=== PATIENT | female | born 1960 | race Caucasian/White ===

== ENCOUNTER → 2023-04-24 07:49 | Outpatient (REF) | payer OTHER, SELFPAY | LOC: PET 07:49 | PROVIDERS: ATTENDING PHYSICIAN Student in an Organized Health Care Education/Training Program | DX: C88.4 Extranodal marginal zone B-cell lymphoma of mucosa-associated lymphoid tissue [MALT-lymphoma] (principal) | CPT/HCPCS: 78815; A9552 ==

== ENCOUNTER 2023-07-16 22:55 | Inpatient (IN) | payer OTHER, SELFPAY ==
[2023-07-16 20:25] VITALS: BP 82/58; BMI 21.6
[2023-07-16 21:00] LABS: Urine Albumin Trace (Neg - Trace); Urine Bilirubin 1+ (Negative); Urine Character Clear (Clear); Urine Color Yellow; Urine Glucose Negative (Negative); Urine Ketone Trace (Negative); Urine Leukocyte Trace (Negative); Urine Nitrite Negative (Negative); Urine Occult Blood 2+ (Negative); Urine Urobilinogen 3+ (Neg - 1+)
[2023-07-16 21:02] LABS: Hematocrit 27.2 % (37.0-47.0); Mean Corp Hgb Conc. 36.8 g/dL (33.0-37.0); Mean Corpuscular Hgb 30.8 pg (27.0-31.0); Mean Corpuscular Volume 83.7 fL (81.0-99.0); Mean Platelet Volume 9.4 fL (7.4-10.4); Platelet Count 180 10^3/uL (130-400); Red Blood Cell Count 3.25 10^6/uL (4.20-5.40); Red Cell Dist. Width 12.7 % (11.5-14.5)
[2023-07-16 21:10] LABS: COVID-19 Antigen Negative (Negative); Urine Squamous Cell 16-20 /LPF (Few)
[2023-07-16 21:11] LABS: Urine Bacteria Few (Negative); Urine Mucus Moderate; Urine Red Blood Cell 0-2 /HPF (0-2); Urine White Cell 0-2 /HPF (0-5)
[2023-07-16 21:20] LABS: ALT (SGPT) 26 U/L (0-35); AST (SGOT) 33 U/L (14-36); Albumin 3.1 g/dl (3.5-5.0); Alkaline Phosphatase 94 U/L (38-126); Blood Urea Nitrogen 28 mg/dl (7-17); Carbon Dioxide 20 mmol/L (22-30); Chloride 101 mmol/L (98-107); Estimated Creatinine Clearance 64 ml/min; Glucose 133 mg/dl (70-99); Potassium 3.2 mmol/L (3.5-5.1); Sodium 131 mmol/L (135-145); Total Bilirubin 0.8 mg/dl (0.2-1.3); Total Protein 5.3 g/dl (6.3-8.2); eGFR > 60.00
[2023-07-16 21:40] LABS: Band Neutrophils 0 % (0-3); Eosinophils 6 % (0-6); Lymphocytes 27 % (20-51); Monocytes 61 % (2-9); Normal RBC Morphology No; Platelets Checked Yes
[2023-07-16 21:41] LABS: Burr Cells Slight
[2023-07-16 21:42] LABS: Total Cells Counted 100
--- NOTE | 2023-07-16 22:02 | ED.GENMED ---
History of Present Illness
General
Chief Complaint: Fever
Source: patient
Exam Limitations: none
Time Seen by Provider: 07/16/23 21:43
Travel History
Have you had any contact with someone who has COVID-19?: No
Do you have any symptoms of coronavirus? Fever > 100 degrees, chills, cough, shortness of breath, sore throat, loss of taste or smell, muscle aches, or headache?: No
History of Present Illness
History of Present Illness:
See MDM
Past History
Past History
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
ED Past Surgical History: Other (Skin biopsy)
Patient has exhibited threatening behavior?: No
Social History
Tobacco: Non-smoker
Alcohol: Occasional
Drug: None
Living: with family
Employment: Employed
Family History
Family History: Negative Diabetes, Hypertension, Early CAD, Asthma or Cancer
Phy Exam
Physical Exam
Physical Exam:
See MDM
Course
Orders/Labs/Results
Orders:
Orders
07/16/23 20:28
Electrocardiogram (*1) Urgent
Reason for Study: Chest Pain
07/16/23 20:29
EKG- Treatment ONCE
07/16/23 20:47
COVID-19 Antigen Urgent
Source: Nasal Swab
Complete Blood Count/With Diff Urgent
Comprehensive Metabolic Panel Urgent
Manual Differential Urgent
Urinalysis Reflex To Culture Urgent
Date Specimen was Collected: 07/16/23
Time Specimen was Collected: 20:29
Urine Microscopic Reflex Cult Urgent
Influenza A+B Rapid Molecular Urgent
LIANE Source: Nasal Swab
Specimen Description:
07/16/23 21:57
0.9% Sodium Chloride 1000 ml [Nss] 1,000 ml IV BOLUS
Cefepime HCl [Maxipime] 2,000 mg IV NOW STA
07/16/23 21:58
CR Chest Portable - 1 View Urgent
Comment:
Reason For Exam: neutropenic fever
Reason Study Needs to be Portable: Patient Unstable
07/16/23 22:00
Lactic Acid Q4H
Comment: CANCEL 2nd LACTIC ACID IF 1st LACTIC ACID IS LESS THAN 2
Blood Culture Q30M
LIANE Source: Blood/Venous
Specimen Description:
07/16/23 22:30
Blood Culture Q30M
LIANE Source: Blood/Venous
Specimen Description:
07/17/23 02:00
Lactic Acid Q4H
Comment: CANCEL 2nd LACTIC ACID IF 1st LACTIC ACID IS LESS THAN 2
Abnormal Lab Results
07/16/23
20:47
WBC 1.0 L* 10^3/uL
(4.8-10.8)
RBC 3.25 L 10^6/uL
(4.20-5.40)
Hgb 10.0 L g/dL
(12.0-16.0)
Hct 27.2 L %
(37.0-47.0)
Abs Neuts (Manual) 0.0 L* 10^3/uL
(1.4-6.5)
Segmented Neutrophils 3 L %
(42-75)
Monocytes (Manual) 61 H %
(2-9)
Sodium 131 L mmol/L
(135-145)
Potassium 3.2 L mmol/L
(3.5-5.1)
Carbon Dioxide 20 L mmol/L
(22-30)
BUN 28 H mg/dl
(7-17)
Glucose 133 H mg/dl
(70-99)
Total Protein 5.3 L g/dl
(6.3-8.2)
Albumin 3.1 L g/dl
(3.5-5.0)
Urine Ketones Trace A
(Negative)
Ur Occult Blood Reflex 2+ A
(Negative)
Urine Bilirubin 1+ A
(Negative)
Urine Urobilinogen 3+ A
(Neg - 1+)
Leukocyte Esterase Rfl Trace A
(Negative)
Urine Bacteria (Reflex) Few A
(Negative)
07/16/23 20:47
07/16/23 20:47
Vital Signs
Initial and Last Documented VS:
Initial Vital Signs
Temp Pulse Resp BP Pulse Ox
99.1 F 72 16 82/58 96
07/16/23 20:25 07/16/23 20:25 07/16/23 20:25 07/16/23 20:25 07/16/23 20:25
Last Documented Vital Signs
Temp Pulse Resp BP Pulse Ox
99.1 F 72 16 82/58 96
07/16/23 20:25 07/16/23 20:25 07/16/23 20:25 07/16/23 20:25 07/16/23 20:25
MDM/Problems Addressed
Differential Diagnosis Includes:
HPI and MDM Narrative:
62-year-old female presenting with persistent fever. She developed a fever several days ago and was presumed sinusitis. She was started on Augmentin. Due to ongoing symptoms, she was then switched to azithromycin. She was sent in for further
evaluation due to ongoing fevers while immunocompromise. Patient states he has a history of rheumatoid arthritis and she used to be on methotrexate. She also has a history of non-Hodgkin's lymphoma. She receives monthly Rituxan infusions.
Patient denies any source of the fever such as shortness of breath, cough or urinary symptoms. She denies headache or neck pain. She does admit to feeling mildly dehydrated
Blood work was performed in triage and patient repeated. Although afebrile here, patient states she had a fever at home
Patient placed on neutropenic precautions
Physical exam
General: Well appearing and non-toxic
HEENT: protecting airway. Mildly dry mucous membranes
Neck: supple
CV: No evidence of cyanosis
Resp: No accessory muscle use. Lungs clear
Abd: Non-distended
Extremities: No deformities
Neuro: alert
Psych: Normal affect
Skin: warm
Problems Addressed including Acute and Chronic Conditions affecting care:
1. Neutropenic fever
Acuity: acute
Prognosis: unstable
Details: no obvious source noted. Urine is questionable. Will obtain chest x-ray. Patient started on cefepime and placed on neutropenic precaution
2. Dehydration
Acuity: acute
Prognosis: stable
Details: Will give IV fluids
Differential Diagnosis (but not limited to): Neutropenic fever, sinusitis, viral send
Testing considered: CT abdomen/pelvis but she denies abdominal pain
Drug therapy (if applicable): OTC meds, please see d/c instruction regarding Rx drugs
Amount and/or Complexity of Data Reviewed
Clinical info obtained from: Patient
External data reviewed: N/A
Labs I independently reviewed (but not limited to): Neutropenia
Radiology: N/A
Pulse Ox: not hypoxic
EKG independently reviewed: Sinus rhythm, normal axis, no STEMI
Geothermal Operations Manager: N/A
Critical Care: N/A
Risk of Complication:
Social Determinants of health: Good social support
Discussed with other providers: N/A
Escalation of Care includes Admit/Obs: After being observed in the Emergency Department, pt stable for discharge.
Occasional wrong word or 'sound a like' substitutions may have occurred due to the inherent limitations of voice recognition software. Read the chart carefully and recognize, using context, where substitutions have occurred.
*Critical Care Note
Total Time (30-74mins, 75-104mins- exclusive of procedures): Not Applicable
ED Attending Note
-
Portions of this chart may have been created with voice recognition software.� Occasional wrong word or��sound alike� substitutions may have occurred due to the inherent limitations of voice recognition software.
Discharge Plan
Departure
Patient Disposition: Admit
Date of Disposition: 07/16/23
Time of Disposition: 22:02
Admit to: Med/Surg
Presentation/result/management discussed w/ accepting MD/DO: Hospitalist
Discharge Problem:
Neutropenic fever
Prescriptions:
No Action
multivitamin [Daily Value] 1 EACH tablet
1 ea PO BID
folic acid 0.4 MG tablet
0.4 mg PO DAILY
methotrexate sodium 2.5 MG tablet
7.5 mg PO .WEEKLY ON SAT
cevimeline [Evoxac] 30 MG capsule
30 mg PO TID
cholecalciferol (vitamin D3) [Vitamin D3] 1,000 UNIT capsule
1,000 unit PO BID
astaxanthin 4 MG capsule
4 mg PO DAILY
cyclosporine [Restasis MultiDose] 5.5 ML drops
1 drp ophthalmic (eye) BID
lifitegrast [Xiidra] 1 EACH dropperette
1 ea OP BID
Eye Support Vitamin
1 dose PO BID
Rituxan:
1 dose INJ .EVERY 4 MONTHS
Vein Support Vitamin
1 dose PO BID
Vitamin C
1 tab PO BID
Zinc
1 tab PO BID
sucralfate 1 GM/10 ML suspension
1 gm PO QID Qty: 10 0RF
sucralfate 1 GM/10 ML suspension
1 gm PO BID Qty: 28 0RF
dexlansoprazole [Kapidex] 60 MG capsule,biphase delayed releas
60 mg PO Daily Qty: 20 0RF
Interventions
Interventions:
*Risk Screen - Suicide Last Done: 07/16/23 20:25
*Neglect/Abuse Screening Last Done: 07/16/23 20:25
ED- Fall Risk Assessment Last Done: 07/16/23 20:25
Discharge Date and Time
Print Language: GREENLANDIC
[2023-07-16 22:05] VITALS: BP 100/60
--- NOTE | 2023-07-16 22:05 | HPS.HSE ---
Addendum entered and electronically signed by Cecile Wayne MD 07/16/23 22:38:
*CXR pending
Original Note:
Family Physician
-
Family Physician:
Chief Complaint
-
fever
History of Present Illness
Ms. Malika Pathak is a 62 yo woman with hx non-Hodgkin's lymphoma on Rituxan infusions, RA, GERD, presents to the ER with fever.
Patient started having fevers a few days ago. Last week she was treated for sinusitis with Augmentin but only took once a day instead of twice. She was then started on Azithromycin. She states the headaches from her sinusitis have improved but
she remains with high fever. She is on Rituxan for both RA and NHL. She follows at [facility] for NHL.
She denies nausea/vomiting/diarrhea. Has intermittent abdominal cramping, none now. She had diarrhea over the weekend and a normal BM yesterday. No chest pain or shortness of breath. No cough.
Medical History
Past Medical History
Past Medical History: Reports Other (on-Hodgkin's lymphoma on Rituxan infusions, RA, GERD, anxiety)
Past Surgical History: Reports Other
Social History
Tobacco: Former Smoker
Alcohol: None
Family History
Family History: Not pertinent
Allergies / Home Medications
Allergies reflects when Allergies were last updated in Twitter.
Home Medications with original date entered in Twitter
Allergy/Medication List:
Allergies
Allergy/AdvReac Type Severity Reaction Status Date / Time
latex Allergy Rash Verified 07/16/23 20:30
diazepam [From Valium] AdvReac Unknown Verified 07/16/23 20:30
Home Medications
astaxanthin 4 mg capsule 4 mg PO DAILY 10/26/16
cevimeline 30 mg capsule (Evoxac) 30 mg PO TID 10/26/16
Eye Support Vitamin 1 tab PO BID 06/15/20
Vein Support Vitamin 1 tab PO BID 06/15/20
Immune Support Vitamin 2 tab PO BID 07/16/23
MSM 2 tab PO BID 07/16/23
Rituxan 0 mg IV [id number] 07/16/23
acetaminophen 500 mg tablet (Tylenol Extra Strength) 1,000 mg PO Q6HPRN PRN fever 07/16/23
ascorbic acid (vitamin C) 500 mg tablet (Vitamin C) 500 mg PO BID 07/16/23
azithromycin 250 mg tablet 0 mg PO .COMPLEX 07/16/23
cholecalciferol (vitamin D3) 25 mcg (1,000 unit) tablet 25 mcg PO BID 07/16/23
cyclosporine 0.05 % eye drops in a dropperette (Restasis) 1 drp BOTH EYES BID 07/16/23
folic acid 1 mg tablet 1 mg PO DAILY 07/16/23
glutathione 2 tab PO BID 07/16/23
hydroxychloroquine 200 mg tablet 200 mg PO BID 07/16/23
lifitegrast 5 % eye drops in a dropperette (Xiidra) 1 drp BOTH EYES BID 07/16/23
prochlorperazine maleate 10 mg tablet 10 mg PO Q8H PRN nausea/vomiting 07/16/23
sertraline 100 mg tablet 100 mg PO DAILY@199907/16/23
sertraline 25 mg tablet 25 mg PO DAILY@199907/16/23
therapeutic multivitamin 1 tab PO DAILY 07/16/23
zinc 1 dose PO DAILY 07/16/23
Review of Systems
-
History Source: Patient
A 12 point ROS was completed and negative except as noted: Yes
Physical Exam
Vital Signs
Vital Signs
Temp Pulse Resp BP Pulse Ox
99.1 F 72 16 82/58 96
07/16/23 20:25 07/16/23 20:25 07/16/23 20:25 07/16/23 20:25 07/16/23 20:25
Physical Exam
General: No Apparent Distress and Conversant
HEENT: PERRLA
Respiratory: Clear; No Wheezes or Rales
Cardiac: S1/S2 and Regular Rhythm
GI: Soft and Non Tender
Musculoskeletal: No Edema
Skin: Warm and Dry; No Rash
Neuro: AO x 3
Psych: Calm
Laboratory Results
-
07/16/23 20:47
07/16/23 20:47
Laboratory Results
Total Bilirubin 0.8 mg/dl (0.2-1.3) 07/16/23 20:47
AST 33 U/L (14-36) 07/16/23 20:47
ALT 26 U/L (0-35) 07/16/23 20:47
Alkaline Phosphatase 94 U/L (38-126) 07/16/23 20:47
Data Reviewed
-
Diagnostic Radiology: Report Reviewed by me
Lab Data: Labs Reviewed by me
Impression/Plan
-
Ms. Malika Pathak is a 62 yo woman with hx non-Hodgkin's lymphoma on Rituxan infusions, RA, GERD, anxiety presents to the ER with fever. She was recently treated with Augmentin then Azithromycin for Sinusitis.
Triage VS: T 99.1, P 72, BP 82/58
Labs: WBC 1.0, Hg 10, PLT 180, Na 131, K+ 3.2, CO2 20, BUN 28, Cr 0.7, glucose 133, liver enzymes WNL
Flu and Covid negative
UA with 0-2 WBC, trace leuk esterase
MAR: Cefepime
Neutropenia Fever
Hx Non-Hodgkin's Lymphoma
-patient reports Rituxan therapy as only current treatment NHL
-admit to telemetry
-IV Vanc/Cefepime
-will complete course of Azithromycin for sinusitis (2 more days)
-F/U cultures
-IVF
-Oncology consult
-obtain records: most recent Oncology notes
RA
-hold Hydroxychloroquine for now
Anxiety
-MACHINIST MATE Zoloft
DVT PPx lovenox subQ (PLT OK - monitor daily)
FULL CODE
[2023-07-16] MEDS: MAXIPIME 2000 MG IV (22:21)
[2023-07-16] MEDS: NSS 1000 IV (22:21)
[2023-07-16] MEDS: KCL 40 MEQ PO (22:29)
[2023-07-16 22:44] LABS: Monotest Negative (Negative)
[2023-07-16 22:49] LABS: Lactic Acid 0.9 mmol/L (0.7-2.0)
--- NOTE | 2023-07-16 23:03 | PHA.VAN.IN ---
Assessment
- Assessment
Renal Function: Appears similar to baseline
Concomitant Antimicrobials: CEFEPIME
- Previous Dosing Experience
Previous Regimen: NONE
AUC Dosing Plan
- Dosing Variables
Dosing Weight (kg): 53.5
Dosing CrCl (ml/min): 64
Vd coefficient (L/kg): 0.7
- Empiric Dosing
Initial / Loading Dose: 1500MG
Maintenance Regimen: 1GM IV Q24H
Estimated AUC (mcg*h/mL): 478
Estimated Peak (mcg*h/mL): 35.7
Estimated Trough (mcg/ml): 9.5
Estimated Half Life (H): 12
Pharmacokinetics Vancomycin I
- -
Patient Age: 62
Patient Sex: Female
Vancomycin Day #: 1
Indication: Neutropenic Fever
Requesting Provider: DANIEL
Height / Weight:
Height 5 ft 2 in
Actual Weight 53.524 kg
Pertinent Past Medical History: NON-HODGKIN'S LYMPHOMA
- Vital Signs / Lab Results
Temp Pulse Resp BP Pulse Ox
99.1 F 81 19 100/60 98
07/16/23 20:25 07/16/23 22:15 07/16/23 22:15 07/16/23 22:05 07/16/23 22:15
Lab Results - Hematology
07/16/23
20:47
WBC 1.0 L*
Band Neutrophils 0
Lab Results - Chemistry
07/16/23
20:47
BUN 28 H
Creatinine 0.7
Estimated Creat Clear 64
Albumin 3.1 L
07/16/23
22:13
Lactic Acid 0.9
Lab Results - Urine
07/16/23
20:47
Urine Nitrite (Reflex) Negative
Leukocyte Esterase Rfl Trace A
Urine WBC (Reflex) 0-2
Ur Squamous Epith Cells 16-20
Urine Bacteria (Reflex) Few A
Microbiology Results
07/16/23 20:47 Influenza Types A & B (JACOB) - Final
Nasal Swab Negative for Influenza A & B, NAAT
Negative results must be combined with clinical observations
and patient history.
Nucleic Acid Amplification test (NAAT)performed on the
iMER platform.
[2023-07-17] VITALS (23 sets, daily range): BP systolic 80–109; BP diastolic 37–67; PULSE 77; O2SAT 96
[2023-07-17] MEDS: VANCOCIN 300 ML IV (00:52)
[2023-07-17] MEDS: VANCOCIN 300 MG IV (00:52)
[2023-07-17] MEDS: FLUSH (NSS) 1 FLUSH IV (01:17)
[2023-07-17] MEDS: NSS 1000 IV ×5 (01:30→22:53)
[2023-07-17] MEDS: MAXIPIME 2000 MG IV ×3 (06:32→21:33)
[2023-07-17] MEDS: STERILE WATER FOR INJECTION 10 ML IV ×3 (06:33→21:33)
[2023-07-17 06:42] LABS: Blood Urea Nitrogen 16 mg/dl (7-17); Calcium 8.4 mg/dl (8.4-10.2); Carbon Dioxide 20 mmol/L (22-30); Chloride 108 mmol/L (98-107); Estimated Creatinine Clearance 75 ml/min; Glucose 102 mg/dl (70-99); Magnesium 1.6 mg/dl (1.6-2.3); Potassium 3.7 mmol/L (3.5-5.1); Sodium 135 mmol/L (135-145); eGFR > 60.00
[2023-07-17 07:03] LABS: Mean Corpuscular Hgb 30.5 pg (27.0-31.0); Mean Corpuscular Volume 84.7 fL (81.0-99.0); Mean Platelet Volume 9.6 fL (7.4-10.4); Platelet Count 165 10^3/uL (130-400); Red Blood Cell Count 2.95 10^6/uL (4.20-5.40); Red Cell Dist. Width 13.1 % (11.5-14.5)
[2023-07-17 07:11] LABS: White Blood Cell Count 1.3 10^3/uL (4.8-10.8)
[2023-07-17] MEDS: ZITHROMAX 250 MG PO (08:08)
[2023-07-17] MEDS: FOLVITE 1 MG PO (08:09)
--- NOTE | 2023-07-17 08:32 | CON.ONC ---
Addendum entered and electronically signed by Mateo Hansen MD 07/17/23 12:14:
07/17/23
Patient seen and examined - agree w/ COLOR ROOM ATTENDANT
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
-h/o RA tx w/ Dr. Leggett - Rituximab every 4 months at [facility] - last 03/18
-h/o recurrent sinus infections - multiple antibiotic exposures
-admit w/ neutropenia - moderate anemia
-unclear etiology of neutropenia - possible etiologies -- infection/ antibiotics vs. RA/autoimmune vs. possible med effect - methotrexate and hydroxychloroquine vs. potential underlying bone marrow etiology vs. other
-WBC differential - ANC 0 - predominate monocytosis - will review smear w/ pathology
-check michael-blood flow - leukemia/ lymphoma panel
-infectious w/u - antibiotics as per ID
-consider rheum consult - - as RA as well as rheumatologic medications could be contributing etiologies
-rituximab rarely can induce cytopenias - though no tx in 4 months
-consideration could be given to bone marrow evaluation - as pt at risk for development of primary hematologic process - pending additional w/u
-continue to follow CBC
will continue to follow with you
Original Note:
Impression
Impression
Neutropenic fever
Hx Non-Hodgkin's Lymphoma (Rituxan last administered 02/2023 by Rheum)
Acute sinusitis (Augmentin/Azithromycin)
Rheumatoid arthritis (Hydroxychloroquine)
Abdominal epigastric pain/bloating
Acute diarrhea with nausea
Anemia
Night sweats
Plan
Plan
07/17/23 WBC 1.3, Hgb 9.0, Hct 25, PLT 165, ANC 0
Strict neutropenic precautions
Monitor CBC w/ diff daily
Transfuse as needed to maintain Hgb >7.5, PLT >20
Blood cultures and stool cultures remain pending
Consider abdominal imaging
Monitor fevers
Holding Hydroxychloroquine
Lovenox, monitor PLTs
Supportive care
Request records from [facility]
We will follow.
Patient History
History of Present Illness
Malika Pathak is a very pleasant 62 yo female with history of non-Hodgkin's lymphoma on Rituxan. She is treated at [facility] with Dr. Bazan. She has nt received Rituxan in 'at least 5 months'. She presented to the ER last evening, 07/15, with fevers
for several days. She reported T. max of 103.8. Last week she was started on treatment for acute sinusitis with Augmentin. She states that she was experiencing N/V/D with bloating and feeling 'very gassy' prior to starting antibiotics x1 week which
persisted throughout course of antibiotics. She was then switched to Azithromycin. She states the headaches from her sinusitis resolved but her fever worsened. She now reports drenching night sweats and persistent abdominal bloating and gassy
discomfort. She states she is passing gas and belching. She has had some recent weight loss of (approximately 7 lbs) which she deems intentional with Keto diet. She denies shortness of breath, chest pain, or cough. She notes chills at this time. 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 She has been admitted for further evaluation and workup of neutropenic fever.
Past-Medical/Surgical History
Non-hodgkin's lymphoma (Rituxan)
Rheumatoid arthritis (Hydroxychloroquine)
Sjogren's (possible dermatologic lupus)
Anxiety
GERD
Patient Medication
�Medication �Instructions �Recorded �Confirmed �Last Taken �Type
astaxanthin 4 mg capsule 4 mg PO DAILY 10/26/16 07/16/23 4 Days Ago History
~07/12/23
cevimeline 30 mg capsule (Evoxac) 30 mg PO TID 10/26/16 07/16/23 07/16/23 History
Eye Support Vitamin 1 tab PO BID 06/15/20 07/16/23 4 Days Ago History
~07/12/23
Vein Support Vitamin 1 tab PO BID 06/15/20 07/16/23 4 Days Ago History
~07/12/23
Immune Support Vitamin 2 tab PO BID 07/16/23 07/16/23 4 Days Ago History
~07/12/23
MSM 2 tab PO BID 07/16/23 07/16/23 4 Days Ago History
~07/12/23
Rituxan 0 mg IV [id number] 07/16/23 07/16/23 5 Months Ago History
~02/14/23
acetaminophen 500 mg tablet 1,000 mg PO Q6HPRN PRN fever 07/16/23 07/16/23 Unknown History
(Tylenol Extra Strength)
ascorbic acid (vitamin C) 500 mg 500 mg PO BID 07/16/23 07/16/23 4 Days Ago History
tablet (Vitamin C) ~07/12/23
azithromycin 250 mg tablet 0 mg PO .COMPLEX 07/16/23 07/16/23 07/16/23 History
(Zithromax Z-Britton)
cholecalciferol (vitamin D3) 25 25 mcg PO BID 07/16/23 07/16/23 4 Days Ago History
mcg (1,000 unit) tablet ~07/12/23
cyclosporine 0.05 % eye drops in a 1 drp BOTH EYES BID 07/16/23 07/16/23 07/16/23 History
dropperette (Restasis)
folic acid 1 mg tablet 1 mg PO DAILY 07/16/23 07/16/23 07/16/23 History
glutathione 2 tab PO BID 07/16/23 07/16/23 4 Days Ago History
~07/12/23
hydroxychloroquine 200 mg tablet 200 mg PO BID 07/16/23 07/16/23 07/16/23 History
lifitegrast 5 % eye drops in a 1 drp BOTH EYES BID 07/16/23 07/16/23 07/16/23 History
dropperette (Xiidra)
prochlorperazine maleate 10 mg 10 mg PO Q8H PRN nausea/vomiting 07/16/23 07/16/23 07/15/23 History
tablet
sertraline 100 mg tablet 100 mg PO DAILY@199907/16/23 07/16/23 07/16/23 History
sertraline 25 mg tablet 25 mg PO DAILY@199907/16/23 07/16/23 07/16/23 History
therapeutic multivitamin 1 tab PO DAILY 07/16/23 07/16/23 4 Days Ago History
~07/12/23
zinc 1 dose PO DAILY 07/16/23 07/16/23 4 Days Ago History
~07/12/23
Active Medications
Generic Name Dose Route Start Last Admin
Trade Name Freq PRN Reason Stop Dose Admin
Acetaminophen 1,000 mg 07/17/23 03:01
Acetaminophen 500 Mg Tablet PO 08/14/23 03:00
Q6HPRN PRN
fever, mild pain
Azithromycin 250 mg 07/17/23 08:00 07/17/23 08:08
Azithromycin 250 Mg Tablet PO 07/18/23 08:01 250 mg
DAILY ALICJA Administration
Bisacodyl 10 mg 07/17/23 03:01
Bisacodyl 10 Mg Rectal Suppository RECTAL 08/14/23 03:00
[id number] PRN
constipation
Cefepime HCl 2,000 mg 07/17/23 06:00 07/17/23 06:32
Cefepime Hcl 2,000 Mg/12.5 Ml Vial IV 2,000 mg
Q8H ALICJA Administration
Cyclosporine 1 drops 07/17/23 08:00
Cyclosporine 0.05% (Ophthalmic Emulsion) 10 Drop Droperette BOTH EYES 08/14/23 07:59
BID ALICJA
Enoxaparin Sodium 40 mg 07/17/23 18:00
Enoxaparin Sodium 40 Mg/0.4 Ml Syringe SC 08/14/23 17:59
QPM ALICJA
Folic Acid 1 mg 07/17/23 08:00 07/17/23 08:09
Folic Acid 1 Mg Tablet PO 08/14/23 07:59 1 mg
DAILY ALICJA Administration
Sodium Chloride 1,000 mls @ 100 mls/hr 07/17/23 03:01 07/17/23 04:52
Nss IV 1,000 mls
.Q10H ALICJA Administration
Vancomycin HCl 1 gram in 200 mls @ 200 mls/hr 07/17/23 10:00
Vancocin IV
DAILY@599 ALICJA
Protocol
Cevimeline [Evoxac] 0 mg 07/17/23 08:00
30 Mg Capsule Po Tid PO 08/14/23 07:59
TID ALICJA
Lifitegrast [Xiidra] 0 drop 07/17/23 08:00
5 % Dropperette 1 BOTH EYES 08/14/23 07:59
Drop Both Eyes Bid BID ALICJA
Polyethylene Glycol 17 grams 07/17/23 03:01
Polyethylene Glycol Powder 17 Grams Packet PO 08/14/23 03:00
DAILYPRN PRN
constipation
Sertraline HCl 100 mg 07/17/23 20:00
Sertraline 100 Mg Tablet PO 08/14/23 19:59
DAILY@1999 ALICJA
Sertraline HCl 25 mg 07/17/23 20:00
Sertraline 25 Mg Tablet PO 08/14/23 19:59
DAILY@1999 ALICJA
Sodium Chloride 0 flush 07/16/23 23:00 07/17/23 01:17
Sodium Chloride 0.9% (Flush) Syringe IV 08/13/23 22:59 1 flush
PER PROTOCOL ALICJA Administration
Sterile Water 10 ml 07/17/23 06:00 07/17/23 06:33
Sterile Water For Injection 10 Ml Vial IV 08/14/23 05:59 10 ml
Q8H ALICJA Administration
Review of Systems
-
History Source: Patient, Coordinated Provider and Records
Constitutional: Reports Fever, Weight Loss, Fatigue, Night Sweats and Chills
EENT: Reports No Symptoms
Respiratory: Reports No Symptoms
Cardiac: Reports No Symptoms
GI: Reports Abdominal Pain, Nausea, Diarrhea, Bloated and Indigestion
Breast: Reports N/A
: Reports No Symptoms
Musculoskeletal: Reports No Symptoms
Skin: Reports No Symptoms
Neuro: Reports No Symptoms
Endocrine: Reports No Symptoms
Hematologic/Lymphatic: Reports No Symptoms
Allergy / Immunology: Reports No Symptoms
Psych: Reports No Symptoms
Physical Exam
-
Patient is resting comfortably on stretcher. Her biggest complaint is abdominal bloating with epigastric discomfort and gas.
General: Well Developed, Well Nourished, No Apparent Distress, Comfortable, Pain, Chills and Conversant
HEENT: Negative Jaundice
Cardiology: S1 and S2
Pulmonary: Clear
GI: Normal Bowel Sounds (HYPERACTIVE bowel sounds), Distended and Other (slightly tender on palpation)
Musculoskeletal: No Edema
Extremities: Pulses Present
Neurology: Non Focal
Skin: Warm and Dry
Hematologic / Lymphatic: No Petechiae
Psych: Calm
Labs
Lab Results
WBC 1.3 10^3/uL (4.8-10.8) L* 07/17/23 06:35
RBC 2.95 10^6/uL (4.20-5.40) L 07/17/23 06:35
Hgb 9.0 g/dL (12.0-16.0) L 07/17/23 06:35
Hct 25.0 % (37.0-47.0) L 07/17/23 06:35
MCV 84.7 fL (81.0-99.0) 07/17/23 06:35
MCH 30.5 pg (27.0-31.0) 07/17/23 06:35
MCHC 36.0 g/dL (33.0-37.0) 07/17/23 06:35
RDW 13.1 % (11.5-14.5) 07/17/23 06:35
Plt Count 165 10^3/uL (130-400) 07/17/23 06:35
MPV 9.6 fL (7.4-10.4) 07/17/23 06:35
Abs Immat Gran (auto) Cancelled 07/17/23 06:02
Absolute Neuts (auto) Cancelled 07/17/23 06:02
Absolute Lymphs (auto) Cancelled 07/17/23 06:02
Absolute Monos (auto) Cancelled 07/17/23 06:02
Absolute Eos (auto) Cancelled 07/17/23 06:02
Absolute Basos (auto) Cancelled 07/17/23 06:02
Immature Gran % Cancelled 07/17/23 06:02
Neutrophils % Cancelled 07/17/23 06:02
Lymphocytes % Cancelled 07/17/23 06:02
Monocytes % Cancelled 07/17/23 06:02
Eosinophils % Cancelled 07/17/23 06:02
Basophils % Cancelled 07/17/23 06:02
Creatinine 0.5 mg/dL (0.6-1.0) L 07/17/23 06:02
Vital Signs
Vital Signs
Temp Pulse Resp BP Pulse Ox
99.1 F 91 16 87/43 94
07/16/23 20:25 07/17/23 07:00 07/17/23 07:00 07/17/23 07:00 07/17/23 07:00
07/16/23 CXR: The heart size is within normal limits. The aorta is tortuous and atherosclerotic. The lungs are generally clear of an acute process. There is minimal basilar atelectasis on the left. Differential includes minimal scarring. No focal
area of airspace disease
--- NOTE | 2023-07-17 08:38 | W.PN.HOSP.TC ---
Today's Communication/Plan
-
IV antibiotics. Stool studies. IV fluids.
Assessment / Plan
Assessment / Plan
Physical exam:
General: Acute on chronically ill
HEENT: Normocephalic, Atraumatic and Moist Mucous Membranes
Respiratory: Clear to Auscultation; Negative Wheezes, Rales or Rhonchi
Cardiac: Regular Rhythm and S1/S2
GI: Soft, hyperactive bowel sounds, mild tender and Nondistended
Musculoskeletal: No Clubbing, No Cyanosis and No Edema
Neuro: Awake, Alert and Oriented
Psych: Calm
A/P:
Febrile neutropenia
Hx Non-Hodgkin's Lymphoma (On Rituxan as outpatient)
-Agree with IV cefepime and vancomycin for now. Stop azithromycin.
-Follow-up blood cultures
-Obtain stool cultures and C. difficile today given diarrhea
-Oncology consulted
-Consult ID
-Awaiting for records from [place]
-Discussed with attending RN in the ED
Hypotension
-Currently asymptomatic but with her volume losses will give aggressive fluids
-Bolus normal saline 1 L stat and then continue maintenance
-Monitor blood pressure and volume status closely
Pancytopenia (normal platelets)
-Monitor cell counts closely
-Neutropenic precautions
Rheumatoid arthritis/Sjogren's/?Cutaneous Lupus
-I agree holding Hydroxychloroquine for now
Anxiety/depression
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
DVT PPx Lovenox subQ (PLT OK - monitor daily)
FULL CODE
Total time spent on today's encounter was 52 minutes which included time spent in counseling the patient/family regarding diagnosis and treatment plan as listed above, goals of care, and symptom management. Case was discussed with nursing staff,
specialists, and care coordinators/case management. All labs and imaging personally reviewed by me. Remainder the time spent in detailed review of previous records, lab data, imaging, and other medical provider documentation.
Anticipated Discharge: > 48 hours
Subjective/Interval History
-
Date of Service: July 17, 2023
Patient tells me that she has been having diarrhea and continues to have it. Less nausea and vomiting. Denies lightheadedness or syncope. Denies dysuria. Mild dry cough. No rash. Afebrile today
Objective Data
-
Labs:
Laboratory Results
07/16/23 07/17/23 07/17/23
20:47 06:02 06:35
WBC 1.0 L* Cancelled 1.3 L*
Hgb 10.0 L Cancelled 9.0 L
Hct 27.2 L Cancelled 25.0 L
Plt Count 180 Cancelled 165
Sodium 131 L 135
Potassium 3.2 L 3.7
Chloride 101 108 H
Carbon Dioxide 20 L 20 L
BUN 28 H 16
Creatinine 0.7 0.5 L
Glucose 133 H 102 H
Calcium 9.0 8.4
Total Bilirubin 0.8
AST 33
ALT 26
Alkaline Phosphatase 94
Vital Signs:
Vital Signs
Temp Pulse Resp BP Pulse Ox
99.1 F 91 16 87/43 94
07/16/23 20:25 07/17/23 07:00 07/17/23 07:00 07/17/23 07:00 07/17/23 07:00
[2023-07-17] MEDS: RESTASIS 0.05% OPHTHALMIC EMULSION 1 DROPS BOTH EYES ×2 (08:54→20:59)
[2023-07-17] MEDS: NON-FORMULARY ITEM 30 MG PO ×3 (09:17→21:29)
--- NOTE | 2023-07-17 09:50 | PHA.VAN.FU ---
Vancomycin Assessment / Plan
- Assessment
Renal Function: Stable
Neutropenia: ANC 0
In the past 24 hrs, patient has been: Afebrile
Concomitant Antimicrobials: cefepime, PO zithromax ( continued from home)
- Dosing Plan
Continue: vancomycin 1000 mg daily ( fist dose AM 07/17/23)
- Monitoring Plan
No level(s) ordered at this time: consider levels after pt nears steady state
- Follow Up
Pharmacy will continue to follow.
Vancomycin Follow UP
- -
Patient Age: 62
Patient Sex: Female
Vancomycin Day #: 2
Indication: Neutropenic Fever
Requesting Provider: DANIEL
Height / Weight:
Height 5 ft 2 in
Actual Weight 53.524 kg
Pertinent Past Medical History: NON-HODGKIN'S LYMPHOMA( Rituxan), RA (hydroxychloroquine)
- Vital Signs / Lab Results
Temp Pulse Resp BP Pulse Ox
99.2 F 83 19 97/49 98
07/17/23 09:23 07/17/23 09:30 07/17/23 09:30 07/17/23 09:00 07/17/23 09:30
Lab Results - Hematology
07/16/23 07/17/23 07/17/23
20:47 06:02 06:35
WBC 1.0 L* Cancelled 1.3 L*
Band Neutrophils 0
Lab Results - Chemistry
07/16/23 07/17/23
20:47 06:02
BUN 28 H 16
Creatinine 0.7 0.5 L
Estimated Creat Clear 64 75
Albumin 3.1 L
07/16/23 07/17/23
22:13 02:00
Lactic Acid 0.9 Cancelled
Lab Results - Urine
07/16/23
20:47
Urine Nitrite (Reflex) Negative
Leukocyte Esterase Rfl Trace A
Ur Squamous Epith Cells 16-20
Microbiology Results
07/16/23 20:47 Influenza Types A & B (JACOB) - Final
Nasal Swab Negative for Influenza A & B, NAAT
Negative results must be combined with clinical observations
and patient history.
Nucleic Acid Amplification test (NAAT)performed on the
[employer] NOW platform.
[2023-07-17 09:57] LABS: Reticulocyte Count 0.7 % (0.4-2.8)
[2023-07-17] MEDS: VANCOCIN 200 IV (10:54)
[2023-07-17 12:28] LABS: Folate > 20.0 ng/ml (2.76-20); Vitamin B12 > 1000 pg/ml (239-931)
[2023-07-17 12:36] LABS: Segmented Neutrophils 3 % (42-75)
--- NOTE | 2023-07-17 15:15 | CON.ID ---
Consultation
-
Date/Time Consultation Requested: 07/17/2023 09:09
Date/Time Consultation Performed: 07/13/2023 [id number]
Requesting Provider: Dr. Kang
Performing Provider: Dr. Lima
Reason for Consultation: Febrile neutropenia
Chief Complaint / Past History
History of Present Illness
Malika Pathak is a 62-year-old female being evaluated at the request of Dr. Kang in regards to neutropenic fever. History is obtained from chart review, along with patient interview.
The patient has a significant past medical history of non-Hodgkin's lymphoma (in remission from 2003) and RA (maintained on Rituxan).
She presents to the emergency room following the development of fevers to 103 F several days ago. She reports that approximate week ago she developed vomiting and diarrhea, and was started on Augmentin, although she was only taking it once daily.
She subsequently developed some headache and sinus congestion was started on Azithromycin. Approximately 3 days ago she began to have fevers to 103.8 degrees for which she took Tylenol. Yesterday she continued with fevers and she was advised by
her sister to come to the emergency room for further evaluation.
At present she reports feeling 'bloated' and uncomfortable in the abdominal area. She notes watery diarrhea, and states that approximate 1 year ago she was cultured and found to be positive for Aeromonas. She denies seeing any blood in the stool.
She denies any recent chemotherapy, and her last infusion of Rituxan was in January.
Past History
Additional Past Medical History:
Non-Hodgkin's lymphoma (in remission from 2003)
Rheumatoid arthritis
GERD
Anxiety
Additional Past Surgical History:
Skin biopsy
Allergy History:
latex Allergy (Verified 07/16/23 20:30)
Rash
diazepam [From Valium] Adverse Reaction (Verified 07/16/23 20:30)
Unknown
Medications Reviewed: Yes
Current Antibiotics:
Cefepime 2 g IV every 8 hours
Vancomycin
Social History
Tobacco: Former Smoker
Alcohol: None
Drug: None
Employment: Retired
Family History
Family History: Not Pertinent
Review of Systems
Vital Signs
Temp Pulse Resp BP Pulse Ox
101.9 F H 81 16 98/56 98
07/17/23 14:10 07/17/23 14:10 07/17/23 14:10 07/17/23 14:10 07/17/23 14:10
Physical Exam
Physical Exam
Constitutional: Comfortable, Chronically Ill and Non-toxic
Head: Normocephalic
Eyes: Pupils Equal, Pupils Round, No Conjunctival Hemorrhage and Sclera Anicteric
Oral: No Thrush and No Ulcers
Cardiovascular: Regular Rate and S1/S2; Negative S3/S4
Pulmonary: Clear and Non Labored; Negative Wheezes, Rales or Rhonchi
Gastrointestinal: Soft, Tender (minimal), Distended (mild), Normal Bowel Sounds, No Rebound and No Guarding
Genito-Urinary: Negative Bo
Extremities: Negative Edema, Cyanosis, Erythema, Splinter Hemorrhage or Venous Insufficiency
Musculoskeletal: Negative Joint Swelling or Joint Effusion
Skin: Warm and Dry; Negative Rash or Jaundice
Wound: None
Neurological: Awake, Alert and Oriented
Psychological: Calm
.
Lab / Diagnostic Study Results
07/17/23 06:35
07/17/23 06:02
Abs Immat Gran (auto) Cancelled 07/17/23 06:02
Absolute Neuts (auto) Cancelled 07/17/23 06:02
Absolute Lymphs (auto) Cancelled 07/17/23 06:02
Absolute Monos (auto) Cancelled 07/17/23 06:02
Absolute Basos (auto) Cancelled 07/17/23 06:02
Total Counted 100 07/16/23 20:47
Immature Gran % Cancelled 07/17/23 06:02
Neutrophils % Cancelled 07/17/23 06:02
Lymphocytes % Cancelled 07/17/23 06:02
Monocytes % Cancelled 07/17/23 06:02
Eosinophils % Cancelled 07/17/23 06:02
Basophils % Cancelled 07/17/23 06:02
Abs Neuts (Manual) 0.0 10^3/uL (1.4-6.5) L* 07/16/23 20:47
Segmented Neutrophils 3 % (42-75) L 07/16/23 20:47
Band Neutrophils 0 % (0-3) 07/16/23 20:47
Lymphocytes (Manual) 27 % (20-51) 07/16/23 20:47
Eosinophils (Manual) 6 % (0-6) 07/16/23 20:47
Basophils (Manual) 3 % 07/16/23 20:47
Lactic Acid Cancelled 07/17/23 02:00
Ur Squamous Epith Cells 16-20 /LPF (Few) 07/16/23 20:47
Microbiology Results
Micro:
07/17/23 15:01 Blood Culture - Pending
Blood/Venous
07/17/23 10:55 C. difficile GDH Antigen & Toxins - Final
Feces/Stool Negative for toxigenic C.difficile
07/17/23 10:55 Salmonella/Shigella Culture - Pending
Feces/Stool Campylobacter Culture - Pending
Shiga Toxin Test - Pending
07/17/23 06:02 MRSA Screen - Pending
Nose
07/16/23 22:13 Blood Culture - Pending
Blood/Venous
07/16/23 20:47 Influenza Types A & B (JACOB) - Final
Nasal Swab Negative for Influenza A & B, NAAT
Negative results must be combined with clinical observations
and patient history.
Nucleic Acid Amplification test (NAAT)performed on the
[employer] platform.
Imaging:
07/16/2023 CXR (portable): Lungs are generally clear of any acute process. Minimal bibasilar atelectasis. No focal area of airspace disease.
Assessment / Plan
Febrile neutropenia
- no recent chemotherapy, recent Augmentin use
Rheumatoid arthritis; on hydroxychloroquine and q4 month Rituxan
Hx non-Hodgkin's lymphoma (in remission from 2003)
GERD
Anxiety
Recommendations:
Suspect etiology of neutropenia may be recent Augmentin use.
Continue with cefepime for the present.
Follow white count, ANC and temperature curve.
Monitor pending blood cultures.
Await marrow recovery.
[2023-07-17] MEDS: TYLENOL 1000 MG PO (16:28)
[2023-07-17 16:49] LABS: Band Neutrophils 0 % (0-3); Pathologist Reviewed No; Segmented Neutrophils 8 % (42-75)
[2023-07-17 16:50] LABS: Eosinophils 4 % (0-6); Lymphocytes 22 % (20-51); Monocytes 66 % (2-9); Normal RBC Morphology Yes; Platelets Checked Yes
[2023-07-17 16:51] LABS: Total Cells Counted 100
[2023-07-17 16:52] LABS: Absolute Neutrophils -Man Diff 0.1 10^3/uL (1.4-6.5)
--- NOTE | 2023-07-17 16:57 | PTCARENOTE ---
Critical lab value low WBC ABs Neutro (ANC) low. Doctor Pearl notified via tiger text at [phone]. Placed in chart.
[2023-07-17] MEDS: LOVENOX 40 MG SC (17:03)
[2023-07-17] MEDS: ZOLOFT 25 MG PO (21:00)
[2023-07-17] MEDS: ZOLOFT 100 MG PO (21:00)
[2023-07-18 03:36] VITALS: BP 86/49
[2023-07-18] MEDS: MAXIPIME 2000 MG IV ×3 (05:35→21:22)
[2023-07-18] MEDS: STERILE WATER FOR INJECTION 10 ML IV ×3 (05:35→21:22)
[2023-07-18 06:49] LABS: Hematocrit 25.7 % (37.0-47.0); Hemoglobin 9.1 g/dL (12.0-16.0); Mean Corp Hgb Conc. 35.4 g/dL (33.0-37.0); Mean Corpuscular Hgb 30.4 pg (27.0-31.0); Mean Platelet Volume 9.5 fL (7.4-10.4); Nucleated Red Blood Cells % 0 %; Platelet Count 212 10^3/uL (130-400); Red Cell Dist. Width 13.7 % (11.5-14.5)
[2023-07-18 06:52] LABS: Red Blood Cell Count 2.99 10^6/uL (4.20-5.40); White Blood Cell Count 2.4 10^3/uL (4.8-10.8)
[2023-07-18 06:58] LABS: Blood Urea Nitrogen 8 mg/dl (7-17); Calcium 7.9 mg/dl (8.4-10.2); Carbon Dioxide 19 mmol/L (22-30); Chloride 115 mmol/L (98-107); Estimated Creatinine Clearance 75 ml/min; Glucose 92 mg/dl (70-99); Magnesium 1.6 mg/dl (1.6-2.3); Potassium 3.5 mmol/L (3.5-5.1); Sodium 137 mmol/L (135-145); eGFR > 60.00
[2023-07-18 07:33] VITALS: BP 92/55
--- NOTE | 2023-07-18 07:44 | W.PN.HOSP.TC ---
Today's Communication/Plan
-
IV fluids. IV antibiotics.
Assessment / Plan
Assessment / Plan
Physical exam:
General: Acute on chronically ill
HEENT: Normocephalic, Atraumatic and Moist Mucous Membranes
Respiratory: Clear to Auscultation; Negative Wheezes, Rales or Rhonchi
Cardiac: Regular Rhythm and S1/S2
GI: Soft, hyperactive bowel sounds, mild tender and Nondistended
Musculoskeletal: No Clubbing, No Cyanosis and No Edema
Neuro: Awake, Alert and Oriented
Psych: Calm
A/P:
Febrile neutropenia
Hx Non-Hodgkin's Lymphoma (On Rituxan as outpatient)
-Cont with IV cefepime and vancomycin for now. Stopped azithromycin.
-Follow-up blood cultures
-Obtained stool cultures and C. difficile is negative
-Oncology consult appreciated
-Consult ID appreciated
-Awaiting for records from [place]
Hypotension
-Currently asymptomatic but with her volume losses will give aggressive fluids
-Bolus normal saline 1 L stat yesterday and then continue maintenance
-Monitor blood pressure and volume status closely
Pancytopenia (normal platelets)
-Monitor cell counts closely
-Neutropenic precautions
Rheumatoid arthritis/Sjogren's/?Cutaneous Lupus
-I agree holding Hydroxychloroquine for now
Anxiety/depression
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
DVT PPx Lovenox subQ (PLT OK - monitor daily)
FULL CODE
Total time spent on today's encounter was 52 minutes which included time spent in counseling the patient/family regarding diagnosis and treatment plan as listed above, goals of care, and symptom management. Case was discussed with nursing staff,
specialists, and care coordinators/case management. All labs and imaging personally reviewed by me. Remainder the time spent in detailed review of previous records, lab data, imaging, and other medical provider documentation.
Anticipated Discharge: > 48 hours
Subjective/Interval History
-
Date of Service: July 18, 2023
Patient feels better overall today. Still running low blood pressure but she runs chronically low blood pressure. No lightheadedness. Afebrile
Objective Data
-
Labs:
Laboratory Results
07/18/23
05:21
WBC 2.4 L*
Hgb 9.1 L
Hct 25.7 L
Plt Count 212 D
Sodium 137
Potassium 3.5
Chloride 115 H
Carbon Dioxide 19 L
BUN 8
Creatinine 0.5 L
Glucose 92
Calcium 7.9 L
Vital Signs:
Vital Signs
Temp Pulse Resp BP Pulse Ox
98.4 F 65 16 92/55 95
07/18/23 07:33 07/18/23 07:33 07/18/23 07:33 07/18/23 07:33 07/18/23 07:33
I&O
07/17/23 07/18/23 07/19/23
06:59 06:59 06:59
Intake Total 1919
Balance 1919
[2023-07-18] MEDS: NON-FORMULARY ITEM 30 MG PO ×3 (08:18→21:23)
[2023-07-18] MEDS: FOLVITE 1 MG PO (08:18)
[2023-07-18] MEDS: RESTASIS 0.05% OPHTHALMIC EMULSION 1 DROPS BOTH EYES ×2 (08:18→19:10)
[2023-07-18] MEDS: NSS 1000 IV ×2 (08:19→18:18)
[2023-07-18] MEDS: TUMS 1 TABLET PO (09:01)
[2023-07-18] MEDS: PEPCID 20 MG PO (09:01)
[2023-07-18 09:07] LABS: Band Neutrophils 10 % (0-3); Segmented Neutrophils 29 % (42-75)
[2023-07-18 09:08] LABS: Eosinophils 7 % (0-6); Lymphocytes 23 % (20-51); Monocytes 31 % (2-9); Platelets Checked Yes
[2023-07-18 09:09] LABS: Normal RBC Morphology Yes; Total Cells Counted 100
[2023-07-18 09:12] LABS: Absolute Neutrophils -Man Diff 0.9 10^3/uL (1.4-6.5)
--- NOTE | 2023-07-18 09:44 | PTCARENOTE ---
critical lab WBC 2.4 and Abs Neutro (ANC) 0.9. Dr. Kang notified in person at [id number]. placed in chart
--- NOTE | 2023-07-18 10:43 | W.PN.ONC ---
Today's Communication / Plan
-
WBC improved as was ANC
follow CBC
Impression
Impression
Neutropenic fever - no fevers since yesterday pm
Hx Non-Hodgkin's Lymphoma (Rituxan last administered 02/2023 by Rheum)
Acute sinusitis (Augmentin/Azithromycin)
Rheumatoid arthritis (Hydroxychloroquine)
Abdominal epigastric pain/bloating
Acute diarrhea with nausea
Anemia
Night sweats
Plan
Plan
1. Neutropenia - unclear etiology - potentially drug induced - augmentin? vs. hydroxycholoquine - both stopped - vs. other etiology - infectious vs. autoimmune - RA vs. primary hematologic
-WBC and ANC improved today
-cont tx of infection as per ID
-follow CBC
Subjective/Objective
Subjective/Objective
Afebrile this am, no SOB, chest pain
Vital Signs:
Vital Signs
Temp Pulse Resp BP Pulse Ox
98.4 F 65 16 92/55 95
07/18/23 07:33 07/18/23 07:33 07/18/23 07:33 07/18/23 07:33 07/18/23 07:33
Lab Results:
Laboratory Data
WBC 2.4 10^3/uL (4.8-10.8) L* 07/18/23 05:21
Hgb 9.1 g/dL (12.0-16.0) L 07/18/23 05:21
Plt Count 212 10^3/uL (130-400) D 07/18/23 05:21
eGFR > 60.00 07/18/23 05:21
Exam: unchanged
Orders
Orders
Orders From Last 24 Hours
07/17/23 11:57
Add On- LAB Routine
07/17/23 12:06
Leukemia/Lymphoma Phenotyping [S] Routine
[2023-07-18 10:49] VITALS: BP 90/55
--- NOTE | 2023-07-18 12:00 | W.PN.ID1 ---
Date of Service
Date of Service: July 18, 2023
Today's Communication
Continue cefepime for now.
Assessment / Plan
Febrile neutropenia
- no recent chemotherapy, recent Augmentin use
Rheumatoid arthritis; on hydroxychloroquine and q4 month Rituxan
Hx non-Hodgkin's lymphoma (in remission from 2003)
GERD
Anxiety
Recommendations:
Suspect etiology of neutropenia may be recent Augmentin use.
ANC improving.
Fever resolving
Cultures negative to date.
Continue with cefepime for the present
Follow white count, ANC and temperature curve.
Await marrow recovery.
Chief Complaint
-: Other (Neutropenic fever)
Subjective / Review of Systems
Feeling better. No specific symptoms today.
Vital Signs / Physical Exam
Vital Signs
Vital Signs
Temp Pulse Resp BP Pulse Ox
98.1 F 69 16 90/55 94
07/18/23 10:49 07/18/23 10:49 07/18/23 10:49 07/18/23 10:49 07/18/23 10:49
Physical Exam
Constitutional: No Acute Distress and Comfortable
Eyes: No Conjunctival Hemorrhage and Sclera Anicteric
Cardiovascular: Regular Rate and S1/S2
Pulmonary: Clear
Gastrointestinal: Soft, Non Tender and Non Distended
Extremities: Negative Edema
Lines: Port (RCW no erythema)
Objective Data
Lab Data
Lab Results
07/18/23 05:21
07/18/23 05:21
Estimated Creat Clear 75 ml/min 07/18/23 05:21
Lactic Acid Cancelled 07/17/23 02:00
Total Bilirubin 0.8 mg/dl (0.2-1.3) 07/16/23 20:47
AST 33 U/L (14-36) 07/16/23 20:47
ALT 26 U/L (0-35) 07/16/23 20:47
Alkaline Phosphatase 94 U/L (38-126) 07/16/23 20:47
Most recent labs reviewed.
Micro Results:
07/17/23 10:55 Salmonella/Shigella Culture - Preliminary
Feces/Stool Culture in Progress
Campylobacter Culture - Preliminary
Culture in Progress
Shiga Toxin Test - Pending
07/17/23 06:02 MRSA Screen - Final
Nose No Methicillin Resistant Staphylococcus aureus isolated.
07/16/23 22:13 Blood Culture - Preliminary
Blood/Venous No Growth in 24 hours- Final report to follow
07/17/23 15:01 Blood Culture - Pending
Blood/Venous
07/17/23 10:55 C. difficile GDH Antigen & Toxins - Final
Feces/Stool Negative for toxigenic C.difficile
07/16/23 20:47 Influenza Types A & B (JACOB) - Final
Nasal Swab Negative for Influenza A & B, NAAT
Negative results must be combined with clinical observations
and patient history.
Nucleic Acid Amplification test (NAAT)performed on the
[email or web address] platform.
Imaging:
07/16/2023 CXR (portable): Lungs are generally clear of any acute process. Minimal bibasilar atelectasis. No focal area of airspace disease.
[2023-07-18 15:32] VITALS: BP 93/58
[2023-07-18] MEDS: LOVENOX 40 MG SC (17:02)
[2023-07-18] MEDS: ZOLOFT 100 MG PO (19:10)
[2023-07-18] MEDS: ZOLOFT 25 MG PO (19:10)
[2023-07-18] MEDS: TUMS 2 TABLET PO (19:33)
[2023-07-18 19:50] VITALS: BP 104/63
[2023-07-18 23:41] VITALS: BP 102/55
[2023-07-19 03:05] VITALS: BP 91/54
[2023-07-19] MEDS: NSS 1000 IV (05:04)
[2023-07-19] MEDS: FLUSH (NSS) 2 FLUSH IV (05:04)
[2023-07-19] MEDS: MAXIPIME 2000 MG IV (05:04)
[2023-07-19] MEDS: STERILE WATER FOR INJECTION 10 ML IV (05:05)
[2023-07-19 07:03] LABS: Hematocrit 26.6 % (37.0-47.0); Hemoglobin 9.4 g/dL (12.0-16.0); Mean Corp Hgb Conc. 35.3 g/dL (33.0-37.0); Mean Corpuscular Volume 87.8 fL (81.0-99.0); Mean Platelet Volume 9.2 fL (7.4-10.4); Platelet Count 252 10^3/uL (130-400); Red Blood Cell Count 3.03 10^6/uL (4.20-5.40); White Blood Cell Count 3.2 10^3/uL (4.8-10.8)
[2023-07-19 07:25] LABS: Blood Urea Nitrogen 7 mg/dl (7-17); Calcium 8.1 mg/dl (8.4-10.2); Carbon Dioxide 22 mmol/L (22-30); Chloride 114 mmol/L (98-107); Estimated Creatinine Clearance 75 ml/min; Glucose 97 mg/dl (70-99); Potassium 3.9 mmol/L (3.5-5.1); Sodium 139 mmol/L (135-145); eGFR > 60.00
[2023-07-19 07:45] VITALS: BP 114/66
[2023-07-19 08:07] LABS: Absolute Neutrophils -Man Diff 1.5 10^3/uL (1.4-6.5); Anisocytosis Slight; Band Neutrophils 2 % (0-3); Eosinophils 7 % (0-6); Hypochromasia Slight; Lymphocytes 26 % (20-51); Metamyelocytes 3 % (-); Monocytes 16 % (2-9); Normal RBC Morphology No; Platelets Checked Yes; Segmented Neutrophils 46 % (42-75); Total Cells Counted 100
[2023-07-19] MEDS: NON-FORMULARY ITEM 30 MG PO (08:21)
[2023-07-19] MEDS: RESTASIS 0.05% OPHTHALMIC EMULSION 1 DROPS BOTH EYES (08:28)
[2023-07-19] MEDS: FOLVITE 1 MG PO (08:28)
[2023-07-19] MEDS: PEPCID 20 MG PO (08:28)
--- NOTE | 2023-07-19 08:34 | W.PN.HOSP.TC ---
Today's Communication/Plan
-
Discharge planning today.
Assessment / Plan
Assessment / Plan
Physical exam:
General: No acute distress
HEENT: Normocephalic, Atraumatic and Moist Mucous Membranes
Respiratory: Clear to Auscultation; Negative Wheezes, Rales or Rhonchi
Cardiac: Regular Rhythm and S1/S2
GI: Soft, hyperactive bowel sounds, mild tender and Nondistended
Musculoskeletal: No Clubbing, No Cyanosis and No Edema
Neuro: Awake, Alert and Oriented
Psych: Calm
A/P:
Febrile neutropenia
Hx Non-Hodgkin's Lymphoma (On Rituxan as outpatient)
-Stop antibiotics per ID today.
-Follow-up blood cultures but no growth till date.
-ANC improving
-stool cultures and C. difficile negative
-Oncology consult appreciated
-Consult ID appreciated
-Plan to discharge today
Hypotension
-Improved.
-Stop IV fluids
Pancytopenia (normal platelets)
-Monitor cell counts closely
-ANC improving
-Neutropenic precautions
Rheumatoid arthritis/Sjogren's/?Cutaneous Lupus
-Continue holding Hydroxychloroquine for now but can resume upon discharge with close follow-up with her CBC as outpatient and discussion with her industrial mechanic and oncologist.
Anxiety/depression
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
DVT PPx Lovenox subQ (PLT OK - monitor daily)
FULL CODE
Anticipated Discharge: Today
Subjective/Interval History
-
Date of Service: July 19, 2023
Patient feels well. Blood pressure stable today and afebrile. WBC coming up.
Objective Data
-
Labs:
Laboratory Results
07/19/23
06:16
WBC 3.2 L
Hgb 9.4 L
Hct 26.6 L
Plt Count 252
Sodium 139
Potassium 3.9
Chloride 114 H
Carbon Dioxide 22
BUN 7
Creatinine 0.5 L
Glucose 97
Calcium 8.1 L
Vital Signs:
Vital Signs
Temp Pulse Resp BP Pulse Ox
98.7 F 58 16 114/66 98
07/19/23 07:45 07/19/23 07:45 07/19/23 07:45 07/19/23 07:45 07/19/23 07:45
I&O
07/18/23 07/19/23 07/20/23
06:59 06:59 06:59
Intake Total 1919
Balance 1919
--- NOTE | 2023-07-19 08:45 | W.PN.ID1 ---
Date of Service
Date of Service: July 19, 2023
Today's Communication
DC cefepime.
Assessment / Plan
Febrile neutropenia, resolved
- no recent chemotherapy, recent Augmentin use
Rheumatoid arthritis; on hydroxychloroquine and q4 month Rituxan
Hx non-Hodgkin's lymphoma (in remission from 2003)
GERD
Anxiety
Recommendations:
Suspect etiology of neutropenia may be recent Augmentin use.
ANC resolving
Fever resolved
Cultures negative to date.
Discontinue cefepime.
.
Chief Complaint
-: Other (Neutropenic fever)
Subjective / Review of Systems
Feels well.
Vital Signs / Physical Exam
Vital Signs
Vital Signs
Temp Pulse Resp BP Pulse Ox
98.7 F 58 16 114/66 98
07/19/23 07:45 07/19/23 07:45 07/19/23 07:45 07/19/23 07:45 07/19/23 07:45
Physical Exam
Constitutional: No Acute Distress
Pulmonary: Clear
Gastrointestinal: Soft, Non Tender and Non Distended
Extremities: Negative Edema
Neurological: AO x 3
Objective Data
Lab Data
Lab Results
07/19/23 06:16
07/19/23 06:16
Estimated Creat Clear 75 ml/min 07/19/23 06:16
Lactic Acid Cancelled 07/17/23 02:00
Total Bilirubin 0.8 mg/dl (0.2-1.3) 07/16/23 20:47
AST 33 U/L (14-36) 07/16/23 20:47
ALT 26 U/L (0-35) 07/16/23 20:47
Alkaline Phosphatase 94 U/L (38-126) 07/16/23 20:47
Most recent labs reviewed.
Micro Results:
07/16/23 22:13 Blood Culture - Preliminary
Blood/Venous No Growth in 48 hours- Final report to follow
07/17/23 15:01 Blood Culture - Preliminary
Blood/Venous No Growth in 24 hours- Final report to follow
07/17/23 10:55 Salmonella/Shigella Culture - Preliminary
Feces/Stool Culture in Progress
Campylobacter Culture - Preliminary
Culture in Progress
Shiga Toxin Test - Pending
07/17/23 06:02 MRSA Screen - Final
Nose No Methicillin Resistant Staphylococcus aureus isolated.
07/17/23 10:55 C. difficile GDH Antigen & Toxins - Final
Feces/Stool Negative for toxigenic C.difficile
07/16/23 20:47 Influenza Types A & B (JACOB) - Final
Nasal Swab Negative for Influenza A & B, NAAT
Negative results must be combined with clinical observations
and patient history.
Nucleic Acid Amplification test (NAAT)performed on the
[employer] platform.
Imaging:
07/16/2023 CXR (portable): Lungs are generally clear of any acute process. Minimal bibasilar atelectasis. No focal area of airspace disease.
Care Review
Plan reviewed with: Physician (Dr. Kang)
--- NOTE | 2023-07-19 09:10 | CM ---
met with patient at [facility].patient lives alone in mobile home with 4v steps to enter,her bed and bath is on the [address] level.patient is totally I with ammbulation and with her adl.dr huston is her pcp and she gets her meds from [facility] in
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
patient with a hx of non hodgkin's lymphoma,ra is adm with neutropenic fever.her wbc's and anc are improving abx dc.plan is for dc home with no needs.
[2023-07-19 12:10] VITALS: BP 99/64
--- NOTE | 2023-07-19 13:18 | W.DCSUMMARY ---
Discharge Summary
Discharge Data
Date of Admission: 07/16/23
Date of Discharge: 07/19/23
-
Pending Results: No
Hospital Course
Patient is 62 years old female with history of rheumatoid arthritis, non-Hodgkin lymphoma presented to the hospital with febrile neutropenia. ID and hematology consulted. She was started on broad-spectrum IV antibiotics cefepime and vancomycin.
Blood cultures remain no growth. Her outpatient azithromycin and Augmentin had been discontinued. ID followed patient along and stopped antibiotics and cleared her for discharge today. Patient afebrile and ANC improving. She also had GI upset
and diarrhea and stool cultures were negative and C. difficile negative. Hematology felt some of her medications could be contributing to her neutropenia besides infection but not entirely clear. We held hydroxychloroquine while inpatient but okay
to restart upon discharge will have a follow-up CBC in the next few days and discussions with her oncologist and brusher tender as outpatient to take place if any of her OP meds contributing or not and patient expresses understanding. Her blood
pressure initially low and responded to IV fluids and now blood pressure has been stable. Otherwise, patient is hemodynamically stable, afebrile, and her numbers look better today, and she is very eager to go home today. She will be discharged in
stable condition today.
Discharge duration: 35 minutes
Discharge Plan
-
Patient Disposition: Home (Routine Discharge)
Discharge Diagnosis/Procedures: Febrile neutropenia. History of non-Hodgkin lymphoma. History of rheumatoid arthritis.
Diet: Low Cholesterol
Activity: As tolerated
Driving Restrictions: As prior to admission
Blood Work: Please PCP to order CBC, BMP within 1 week.
Referrals:
Ozzy Tirado DO [Family Provider] - in less than 1 week
Lakia Phillips DO [Active] - in two to three weeks
Ebonie Garcias MD [Active] - in two to four weeks
Prescriptions:
Continued
cevimeline [Evoxac] 30 MG capsule
30 mg PO TID
astaxanthin 4 MG capsule
4 mg PO DAILY
Eye Support Vitamin
1 tab PO BID
Vein Support Vitamin
1 tab PO BID
sertraline 100 mg Tablet
100 mg PO DAILY@1999
Rx Instructions:
07/16/2023, take with 25 mg for a total of 125 mg.
therapeutic multivitamin Tablet
1 tab PO DAILY
prochlorperazine maleate 10 mg Tablet
10 mg PO Q8H PRN (Reason: nausea/vomiting)
acetaminophen [Tylenol Extra Strength] 500 mg Tablet
1,000 mg PO Q6HPRN PRN (Reason: fever)
ascorbic acid (vitamin C) [Vitamin C] 500 mg Tablet
500 mg PO BID
sertraline 25 mg Tablet
25 mg PO DAILY@1999
Rx Instructions:
07/16/2023, take with 100 mg for a total of 125 mg.
folic acid 1 mg Tablet
1 mg PO DAILY
hydroxychloroquine 200 mg Tablet
200 mg PO BID
cyclosporine [Restasis] 0.05 % Dropperette
1 drp BOTH EYES BID
cholecalciferol (vitamin D3) 25 mcg (1,000 unit) Tablet
25 mcg PO BID
Xiidra 5 % Dropperette
1 drp BOTH EYES BID
Immune Support Vitamin
2 tab PO BID
MSM
2 tab PO BID
Rituxan
0 mg IV [id number]
glutathione
2 tab PO BID
zinc liquid
1 dose PO DAILY
Patient Comments:
07/16/2023, pt. takes entire dropper full (sublingually) of zinc daily.
Discontinued
azithromycin [Zithromax Z-Britton] 250 mg Tablet
0 mg PO .COMPLEX
Patient Comments:
07/16/2023, pt. took day 3 today @1999. Filled on 07/14/2023 for 5 days course.
Rx Instructions:
250 mg dose pack: take 500 mg today (day 1), then 250 mg for 4 days (days 2-5).
Discharge Orders:
Discharge Patient (As Directed); Ordered 07/19/23
Ordered By: Greg Kang
Discharge Date and Time
Print Language: KYRGYZ
[2023-07-20 04:58] LABS: IgA 107 mg/dl (70-400); IgG 534 mg/dl (700-1600)
[2023-07-20 05:13] LABS: IgM 26 mg/dl (40-230)
== END 2023-07-19 14:15 | disposition home or self-care (01) | DRG 809 ==
LOC: 2 NORTH 22:55
PROVIDERS: Emergency Medicine; ADMITTING PHYSICIAN Student in an Organized Health Care Education/Training Program; ATTENDING PHYSICIAN Hospitalist; EMERGENCY PHYSICIAN Student in an Organized Health Care Education/Training Program; FAMILY PHYSICIAN Family Medicine; OTHER PHYSICIAN Internal Medicine Hematology & Oncology; OTHER PHYSICIAN Internal Medicine Infectious Disease
DX: D70.9 Neutropenia, unspecified (principal); C81.90 Hodgkin lymphoma, unspecified, unspecified site; D61.818 Other pancytopenia; Z87.891 Personal history of nicotine dependence; M06.9 Rheumatoid arthritis, unspecified; F41.9 Anxiety disorder, unspecified; J01.90 Acute sinusitis, unspecified; I95.9 Hypotension, unspecified; M35.00 Sjogren syndrome, unspecified
CPT/HCPCS: 71045; 80048; 80053; 81003; 81015; 82607; 82746; 82784; 83605; 83735; 85025; 85045; 86308; 87040; 87045; 87046; 87070; 87324; 87427; 87449; 87502; 87811; 93005; 96361; 96374; 97161; 97165; 99285

== ENCOUNTER → 2023-08-18 16:23 | Outpatient (REF) | payer OTHER, SELFPAY | LOC: WDC 16:23 | PROVIDERS: ATTENDING PHYSICIAN Family Medicine | DX: Z12.31 Encounter for screening mammogram for malignant neoplasm of breast (principal) | CPT/HCPCS: 77063; 77067 ==

== ENCOUNTER → 2023-10-15 12:43 | Outpatient (REF) | payer MEDICARE, OTHER, SELFPAY | LOC: RAD 12:43 | PROVIDERS: ATTENDING PHYSICIAN Nurse Practitioner Family; FAMILY PHYSICIAN Family Medicine; REFERRING PHYSICIAN Internal Medicine Medical Oncology | DX: R10.9 Unspecified abdominal pain (principal) | CPT/HCPCS: 76775 ==

== ENCOUNTER → 2023-11-18 16:24 | Outpatient (REF) | payer MEDICARE, OTHER, SELFPAY | LOC: RAD 16:24 | PROVIDERS: ATTENDING PHYSICIAN Nurse Practitioner Family; FAMILY PHYSICIAN Family Medicine | DX: R10.2 Pelvic and perineal pain (principal) | CPT/HCPCS: 76856; 76857 ==

== ENCOUNTER → 2024-03-15 07:32 | Outpatient (REF) | payer MEDICARE, OTHER, SELFPAY | LOC: RAD 07:32 | PROVIDERS: ATTENDING PHYSICIAN Nurse Practitioner Family; REFERRING PHYSICIAN Internal Medicine Medical Oncology | DX: R59.9 Enlarged lymph nodes, unspecified (principal); R59.0 Localized enlarged lymph nodes | CPT/HCPCS: 76882 ==

== ENCOUNTER 2024-05-23 09:27 | Inpatient (IN) | payer MEDICARE, OTHER, SELFPAY ==
[2024-05-23] VITALS (18 sets, daily range): BP systolic 80–117; BP diastolic 46–99; BMI 23.8; BMI 24.0
--- NOTE | 2024-05-23 05:22 | EDRN ---
One week ago pt started with sinus pressure, coughing up 'chunks of green stuff.' Pt used a neti pot and green turned back to yellow. Pt running fever x 3 days at nighttime that causes pt to wake in a sweat. Pt has nausea and dry heaves.
Decreased appetite. Pt with frequent cough. Pt has non-hodgkins lymphoma and pt's RN sister advised pt come to ED. Pt had prolapsed bladder surgery May 02 or . Pt has pressure in chest. No sob.
--- NOTE | 2024-05-23 05:34 | EDRN ---
Blood work ordered in triage and not collected. Waiting for physician evaluation to determine if blood work needed and/or more lab orders needed.
[2024-05-23 05:51] LABS: COVID-19 Antigen Negative (Negative)
--- NOTE | 2024-05-23 07:13 | ED.GENMED ---
History of Present Illness
<Raúl Obrien PA-C - Last Filed: 05/23/24 08:43>
General
Chief Complaint: Cold/Flu/URI Symptoms
Source: patient
Exam Limitations: none
Time Seen by Provider: 05/23/24 06:54
History of Present Illness
History of Present Illness:
63-year-old female with history of non-Hodgkin's lymphoma presents with 7 to 10 days worth of sinus congestion postnasal drip cough fever sore throat and fatigue. The cough started as productive cough with dark green mucus. She now notes yellow
mucus. She has had a temperature as high as 103.4 at home. She has been taking Tylenol. She now notes nausea but no vomiting. 2 weeks ago, she had a bladder surgery but denies any urinary symptoms. No abdominal pain. No other complaints at
this time
Past History
<Raúl Obrien PA-C - Last Filed: 05/23/24 08:43>
Past History
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
ED Past Surgical History: Other (Skin biopsy)
Patient has exhibited threatening behavior?: No
Social History
Tobacco: Non-smoker
Alcohol: Occasional
Drug: None
Living: with family
Employment: Employed
Family History
Family History: Negative Diabetes, Hypertension, Early CAD, Asthma or Cancer
Phy Exam
<Raúl Obrien PA-C - Last Filed: 05/23/24 08:43>
Physical Exam
Physical Exam:
General: slightly ill-appearing female no acute respiratory distress
HEENT: Normocephalic atraumatic mucosa dry neck is supple
Heart: Regular rate and rhythm
Lungs: Subtle rhonchi at the bases bilaterally
Abdomen is soft nontender nondistended
Extremities: No cyanosis or edema
Skin: Warm no rash
Sepsis
<Raúl Obrien PA-C - Last Filed: 05/23/24 08:43>
Sepsis Screening
Sepsis Assessment: Sepsis
Sepsis Screen
Sepsis Screen: Sepsis
Date: 05/23/24
Time: 08:43
<Melvin Caldwell MD - Last Filed: 05/23/24 09:34>
Sepsis Screen
Sepsis Screen: Sepsis
Date: 05/23/24
Time: 09:26
Course
<Raúl Obrien PA-C - Last Filed: 05/23/24 08:43>
Orders/Labs/Results
Orders:
Orders
05/23/24 05:26
COVID-19 Antigen Urgent
Source: Nasal Swab
Influenza A+B Rapid Molecular Urgent
LIANE Source: Nasal Swab
Specimen Description:
05/23/24 06:47
CR Chest - 2 Views Urgent
Comment:
Reason For Exam: cough, fever
05/23/24 07:11
0.9% Sodium Chloride 1000 ml [Nss] 1,000 ml IV BOLUS
Acetaminophen [Tylenol] 1,000 mg PO NOW STA
Ipratropium/Albuterol Sulfate [Duoneb] 3 ml INH R NOW STA
Ondansetron Injectable [Zofran] 4 mg IV NOW STA
05/23/24 07:31
CMP [Comprehensive Metabolic Panel] Urgent
Complete Blood Count/With Diff Urgent
Lipase Urgent
Comment: ADD ON
Manual Differential Urgent
05/23/24 08:28
Azithromycin 500 mg/250 ml [Zithromax Infusion] 500 mg in 250 ml IV NOW
CefTRIAXone [Rocephin] 1,000 mg IV NOW STA
05/23/24 08:43
Urinalysis Reflex To Culture Urgent
Date Specimen was Collected: 05/23/24
Time Specimen was Collected: 08:36
Urine Microscopic Reflex Cult Urgent
Blood Culture Q30M
LIANE Source: Blood/Venous
Specimen Description:
Blood Culture Q30M
LIANE Source: Blood/Venous
Specimen Description:
Urine Culture Urgent
LIANE Source: U
Specimen Description:
Date Specimen was Collected: 05/23/24
Time Specimen was Collected: 08:36
05/23/24 08:50
Admit/Transfer Patient As Directed
Co-Sign Provider:
Level of Care: Inpatient admission
Assign to:: Medical/Surgical
Physician / Group: Hospitalist
Diagnosis: Neutropenic fever
Reason for Hospitalization: .
Expected length of stay greater than two midnights?: Yes
ELOS- Estimated Length of Stay in days: 3
I certify the patient meets the requirements for IP care: Yes
PRN Pain Medication Management As Directed
May give lesser potent ordered pain med per pt: Yes
preference::
Protocol:: Medication orders for pain may be administered in a
manner that supports deferring to patient preference
when the pt is:
- Requesting an ordered lesser potent pain medication.
Least to most potent pain medications are defined
as: acetaminophen < NSAID < tramadol < opioids
(morphine, oxycodone, hydromorphone).
- Requesting a lesser dose of the same medication IF
ORDERED.
- Requesting a less intrusive route of administration
if both routes are prescribed by the provider (PO <
IV).
05/23/24 08:52
Code Status As Directed
Resuscitation Status: Full Code
05/23/24 09:04
0.9% Sodium Chloride 1000 ml [Nss] 1,000 ml IV BOLUS
Abnormal Lab Results
05/23/24 05/23/24
07: 08:43
WBC 1.7 L* 10^3/uL
(4.8-10.8)
RBC 3.94 L 10^6/uL
(4.20-5.40)
Hgb 11.9 L g/dL
(12.0-16.0)
Hct 34.1 L %
(37.0-47.0)
Abs Neuts (Manual) 0.0 L* 10^3/uL
(1.4-6.5)
Segmented Neutrophils 0 L %
(42-75)
Monocytes (Manual) 53 H %
(2-9)
Sodium 134 L mmol/L
(135-145)
Creatinine 0.5 L mg/dL
(0.6-1.0)
Glucose 134 H mg/dl
(70-99)
Total Protein 5.7 L g/dl
(6.3-8.2)
Albumin 3.4 L g/dl
(3.5-5.0)
Ur Occult Blood Reflex 2+ A
(Negative)
Leukocyte Esterase Rfl 1+ A
(Negative)
Urine Albumin (Reflex) 2+ A
(Neg - Trace)
05/23/24 07:31
05/23/24 07:31
Vital Signs
Initial and Last Documented VS:
Initial Vital Signs
Temp Pulse Resp BP Pulse Ox
37.8 C 88 24 90/70 96
05/23/24 04:51 05/23/24 04:51 05/23/24 04:51 05/23/24 04:51 05/23/24 04:51
Last Documented Vital Signs
Temp Pulse Resp BP Pulse Ox
37.8 C 74 23 80/47 93
05/23/24 04:51 05/23/24 09:15 05/23/24 09:15 05/23/24 09:08 05/23/24 09:15
<Melvin Caldwell MD - Last Filed: 05/23/24 09:34>
Orders/Labs/Results
Orders:
Orders
05/23/24 05:26
COVID-19 Antigen Urgent
Source: Nasal Swab
Influenza A+B Rapid Molecular Urgent
LIANE Source: Nasal Swab
Specimen Description:
05/23/24 06:47
CR Chest - 2 Views Urgent
Comment:
Reason For Exam: cough, fever
05/23/24 07:11
0.9% Sodium Chloride 1000 ml [Nss] 1,000 ml IV BOLUS
Acetaminophen [Tylenol] 1,000 mg PO NOW STA
Ipratropium/Albuterol Sulfate [Duoneb] 3 ml INH R NOW STA
Ondansetron Injectable [Zofran] 4 mg IV NOW STA
05/23/24 07:31
CMP [Comprehensive Metabolic Panel] Urgent
Complete Blood Count/With Diff Urgent
Lipase Urgent
Comment: ADD ON
Manual Differential Urgent
05/23/24 08:28
Azithromycin 500 mg/250 ml [Zithromax Infusion] 500 mg in 250 ml IV NOW
CefTRIAXone [Rocephin] 1,000 mg IV NOW STA
05/23/24 08:43
Urinalysis Reflex To Culture Urgent
Date Specimen was Collected: 05/23/24
Time Specimen was Collected: 08:36
Urine Microscopic Reflex Cult Urgent
Blood Culture Q30M
LIANE Source: Blood/Venous
Specimen Description:
Blood Culture Q30M
LIANE Source: Blood/Venous
Specimen Description:
Urine Culture Urgent
LIANE Source: U
Specimen Description:
Date Specimen was Collected: 05/23/24
Time Specimen was Collected: 08:36
05/23/24 08:50
Admit/Transfer Patient As Directed
Co-Sign Provider:
Level of Care: Inpatient admission
Assign to:: Medical/Surgical
Physician / Group: Hospitalist
Diagnosis: Neutropenic fever
Reason for Hospitalization: .
Expected length of stay greater than two midnights?: Yes
ELOS- Estimated Length of Stay in days: 3
I certify the patient meets the requirements for IP care: Yes
PRN Pain Medication Management As Directed
May give lesser potent ordered pain med per pt: Yes
preference::
Protocol:: Medication orders for pain may be administered in a
manner that supports deferring to patient preference
when the pt is:
- Requesting an ordered lesser potent pain medication.
Least to most potent pain medications are defined
as: acetaminophen < NSAID < tramadol < opioids
(morphine, oxycodone, hydromorphone).
- Requesting a lesser dose of the same medication IF
ORDERED.
- Requesting a less intrusive route of administration
if both routes are prescribed by the provider (PO <
IV).
05/23/24 08:52
Code Status As Directed
Resuscitation Status: Full Code
05/23/24 09:04
0.9% Sodium Chloride 1000 ml [Nss] 1,000 ml IV BOLUS
Abnormal Lab Results
05/23/24 05/23/24
07:31 08:43
WBC 1.7 L* 10^3/uL
(4.8-10.8)
RBC 3.94 L 10^6/uL
(4.20-5.40)
Hgb 11.9 L g/dL
(12.0-16.0)
Hct 34.1 L %
(37.0-47.0)
Abs Neuts (Manual) 0.0 L* 10^3/uL
(1.4-6.5)
Segmented Neutrophils 0 L %
(42-75)
Monocytes (Manual) 53 H %
(2-9)
Sodium 134 L mmol/L
(135-145)
Creatinine 0.5 L mg/dL
(0.6-1.0)
Glucose 134 H mg/dl
(70-99)
Total Protein 5.7 L g/dl
(6.3-8.2)
Albumin 3.4 L g/dl
(3.5-5.0)
Ur Occult Blood Reflex 2+ A
(Negative)
Leukocyte Esterase Rfl 1+ A
(Negative)
Urine Albumin (Reflex) 2+ A
(Neg - Trace)
05/23/24 07:31
05/23/24 07:31
Vital Signs
Initial and Last Documented VS:
Initial Vital Signs
Temp Pulse Resp BP Pulse Ox
37.8 C 88 24 90/70 96
05/23/24 04:51 05/23/24 04:51 05/23/24 04:51 05/23/24 04:51 05/23/24 04:51
Last Documented Vital Signs
Temp Pulse Resp BP Pulse Ox
37.8 C 74 23 80/47 93
05/23/24 04:51 05/23/24 09:15 05/23/24 09:15 05/23/24 09:08 05/23/24 09:15
<Raúl Obrien PA-C - Last Filed: 05/23/24 08:43>
MDM/Problems Addressed
Differential Diagnosis Includes:
Fever cough fatigue nausea. Question bronchitis versus pneumonia versus viral illness such as COVID or flu. Looks dry will check labs for electrolyte abnormality.
Temperatures 100.1 Tylenol ordered Zofran ordered for nausea will hydrate and treat with DuoNeb.
I personally reviewed chest x-ray which shows no pleural effusion questionable infiltrate right lower lobe
<Raúl Obrien PA-C - Last Filed: 05/23/24 08:43>
*Critical Care Note
Total Time (30-74mins, 75-104mins- exclusive of procedures): Not Applicable
<Raúl Obrien PA-C - Last Filed: 05/23/24 08:43>
Update Note
Update Note:
Patient now hypoxic 88% on room air. White blood cell count is 1.7 with 0.0 absolute neutrophils. Concern for ongoing fever and neutropenic patient. She notes persistent cough now hypoxic. Will cover for pneumonia with Rocephin and Zithromax.
Fluids ordered. The oxygen started. Will admit to hospital. Discussed with emergency room attending
ED Attending Note
<Raúl Obrien PA-C - Last Filed: 05/23/24 08:43>
-
Portions of this chart may have been created with voice recognition software.� Occasional wrong word or��sound alike� substitutions may have occurred due to the inherent limitations of voice recognition software.
<Melvin Caldwell MD - Last Filed: 05/23/24 09:34>
ED Attending Note
Patient seen and examined by attending physician: Yes
ED Attending Note:
I have seen and evaluated the patient with a [id number] encounter. I have spoken to the advance practicer provider and involved in the medical history, the physical exam, medical decision making.
Evaluation and management service: agree unless noted differently below.
Results interpretation: agree unless noted differently below.
Focused HPI: 63-year-old female with history as documented presents to the ER for evaluation of cough and shortness of breath, fever. Symptoms ongoing for over a week.
Physical exam: Borderline fever, soft blood pressure, mild tachypnea, mild hypoxia. Faint scattered wheezing. No cardiac rubs gallops or murmurs appreciated.
Medical Decision Makin-year-old female presents with persistent cough, shortness of breath and fever over a week now. Vitals and exam as above. Labs show neutropenia. Chest x-ray no clear pneumonia but given neutropenia with fever at home
and persistent symptoms will cover with antibiotics, send off cultures, admit for continued management.
Discharge Plan
Departure
Patient Disposition: Admit
Date of Disposition: 05/23/24
Time of Disposition: 08:39
Presentation/result/management discussed w/ accepting /: Hospitalist
Discharge Problem:
Pneumonia, Neutropenic fever
Prescriptions:
No Action
cevimeline [Evoxac] 30 MG capsule
30 mg PO TID
astaxanthin 4 MG capsule
4 mg PO DAILY
Eye Support Vitamin
1 tab PO BID
Vein Support Vitamin
1 tab PO BID
sertraline 100 mg Tablet
100 mg PO DAILY@1999
Rx Instructions:
05/23/2024, take with 25 mg for a total of 125 mg.
therapeutic multivitamin Tablet
1 tab PO DAILY
ascorbic acid (vitamin C) [Vitamin C] 500 mg Tablet
500 mg PO BID
sertraline 25 mg Tablet
25 mg PO DAILY@1999
Rx Instructions:
05/23/2024, take with 100 mg for a total of 125 mg.
folic acid 1 mg Tablet
1 mg PO DAILY
hydroxychloroquine 200 mg Tablet
200 mg PO BID
cyclosporine [Restasis] 0.05 % Dropperette
1 drp BOTH EYES BID
cholecalciferol (vitamin D3) 25 mcg (1,000 unit) Tablet
25 mcg PO BID
Xiidra 5 % Dropperette
1 drp BOTH EYES BID
Immune Support Vitamin
2 tab PO BID
MSM
2 tab PO BID
Rituxan
0 mg IV [id number]
glutathione
2 tab PO BID
zinc liquid
1 dose PO DAILY
Patient Comments:
05/23/2024, pt. takes entire dropper full (sublingually) of zinc daily.
Referrals:
Ozzy Tirado DO [Family Provider] -
Interventions
Interventions:
*Risk Screen - Suicide Last Done: 05/23/24 04:51
*General Assessment Last Done: 05/23/24 05:15
*Neglect/Abuse Screening Last Done: 05/23/24 04:51
*ED- Fall Risk Assessment Last Done: 05/23/24 05:15
*ED COVID-19 Vaccine History Last Done: 05/23/24 05:15
ED- Pulmonary Assessment Last Done: 05/23/24 05:31
Discharge Date and Time
Print Language: TAJIK
[2024-05-23] MEDS: ZOFRAN 4 MG IV ×2 (07:24→21:50)
[2024-05-23] MEDS: NSS 1000 IV ×4 (07:24→21:05)
[2024-05-23] MEDS: TYLENOL 1000 MG PO ×2 (07:24→14:45)
[2024-05-23] MEDS: DUONEB 3 ML INH (07:25)
[2024-05-23 07:54] LABS: ALT (SGPT) 21 U/L (0-35); AST (SGOT) 27 U/L (14-36); Albumin 3.4 g/dl (3.5-5.0); Alkaline Phosphatase 75 U/L (38-126); Blood Urea Nitrogen 13 mg/dl (7-17); Calcium 8.6 mg/dl (8.4-10.2); Carbon Dioxide 29 mmol/L (22-30); Chloride 100 mmol/L (98-107); Estimated Creatinine Clearance 74 ml/min; Glucose 134 mg/dl (70-99); Lipase 53 U/L (23-300); Potassium 3.9 mmol/L (3.5-5.1); Sodium 134 mmol/L (135-145); Total Bilirubin 0.9 mg/dl (0.2-1.3); Total Protein 5.7 g/dl (6.3-8.2); eGFR > 60.00
[2024-05-23 08:01] LABS: Hematocrit 34.1 % (37.0-47.0); Hemoglobin 11.9 g/dL (12.0-16.0); Mean Corp Hgb Conc. 34.9 g/dL (33.0-37.0); Mean Corpuscular Hgb 30.2 pg (27.0-31.0); Mean Corpuscular Volume 86.5 fL (81.0-99.0); Mean Platelet Volume 9.2 fL (7.4-10.4); Platelet Count 176 10^3/uL (130-400); Red Blood Cell Count 3.94 10^6/uL (4.20-5.40); Red Cell Dist. Width 12.9 % (11.5-14.5)
[2024-05-23 08:22] LABS: Band Neutrophils 0 % (0-3); Lymphocytes 47 % (20-51); Monocytes 53 % (2-9); Normal RBC Morphology Yes; Platelets Checked Yes; Segmented Neutrophils 0 % (42-75); Total Cells Counted 100
[2024-05-23 08:23] LABS: White Blood Cell Count 1.7 10^3/uL (4.8-10.8)
[2024-05-23] MEDS: ZITHROMAX INFUSION 250 IV (08:49)
[2024-05-23] MEDS: ROCEPHIN 1000 MG IV (08:49)
--- NOTE | 2024-05-23 08:49 | HPS.HSE ---
Family Physician
-
Family Physician: Ozzy Tirado
Chief Complaint
-
Cough and fever for 1 week duration
History of Present Illness
63 years old female came in with cough and fever. Positive sick contact with friends and family members that are dealing with cold symptoms. She reported she had fever and chills and fever up to 103 at home. She did not have hypoxia at home. She
reported cough with greenish sputum at times. No specific shortness of breath. No chest pain. In the ER, she was found to have WBC 1.7 with absolute neutrophil 0.0, she tested negative for COVID and influenza screen. Chest x-ray showed COPD, no
definitive infiltrate.
Medical History
Past Medical History
Past Medical History: Reports Other (Rheumatoid arthritis, insomnia, Sjogren syndrome, GERD, aortic aneurysm, non-Hodgkin's lymphoma, osteopenia, urinary incontinence)
Past Surgical History: Reports Other (No recent major surgery)
Social History
Tobacco: Former Smoker (Very remote and brief)
Alcohol: None
Drug: None
Personal: Single
Living: Alone
Employment: Retired
Family History
Family History: Not pertinent
Allergies / Home Medications
Allergies reflects when Allergies were last updated in [employer].
Home Medications with original date entered in [employer]
Allergy/Medication List:
Allergies
Allergy/AdvReac Type Severity Reaction Status Date / Time
latex Allergy Rash Verified 05/23/24 04:54
diazepam [From Valium] AdvReac Unknown Verified 05/23/24 04:54
Home Medications
astaxanthin 4 mg capsule 4 mg PO DAILY Supplement 10/26/16
cevimeline 30 mg capsule (Evoxac) 30 mg PO TID dry mouth 10/26/16
Eye Support Vitamin 1 tab PO BID Supplement 06/15/20
Vein Support Vitamin 1 tab PO BID Supplement 06/15/20
Immune Support Vitamin 2 tab PO BID Supplement 07/16/23
MSM 2 tab PO BID Supplement 07/16/23
Rituxan 0 mg IV [id number] Autoimmune Disorder 07/16/23
ascorbic acid (vitamin C) 500 mg tablet (Vitamin C) 500 mg PO BID Supplement 07/16/23
cholecalciferol (vitamin D3) 25 mcg (1,000 unit) tablet 25 mcg PO BID Supplement 07/16/23
cyclosporine 0.05 % eye drops in a dropperette (Restasis) 1 drp BOTH EYES BID dry eyes 07/16/23
folic acid 1 mg tablet 1 mg PO DAILY Supplement 07/16/23
glutathione 2 tab PO BID Supplement 07/16/23
hydroxychloroquine 200 mg tablet 200 mg PO BID Autoimmune Disorder 07/16/23
lifitegrast 5 % eye drops in a dropperette (Xiidra) 1 drp BOTH EYES BID Eye Condition 07/16/23
sertraline 100 mg tablet 100 mg PO DAILY@1999 Depression 07/16/23
sertraline 25 mg tablet 25 mg PO DAILY@1999 Depression 07/16/23
therapeutic multivitamin 1 tab PO DAILY Supplement 07/16/23
zinc 1 dose PO DAILY Supplement 07/16/23
Review of Systems
-
History Source: Patient
A 12 point ROS was completed and negative except as noted: Yes
Constitutional: Reports Fever and Chills
EENT: Denies Sore Throat
Respiratory: Reports Cough
Cardiac: Denies Chest Pain
Abdomen/GI: Denies Abdominal Pain
: Reports Incontinence; Denies Dysuria
Musculoskeletal: Denies Joint Swelling or Muscle Pain
Skin: Denies Rash
Neurological: Denies Numbness
Endocrine: Denies Temp Intolerance
Hematologic/Lymphatic: Denies Bruising
Psych: Denies Panic Disorder
Physical Exam
Vital Signs
Vital Signs
Temp Pulse Resp BP Pulse Ox
100.1 F 82 24 108/50 89
05/23/24 04:51 05/23/24 08:22 05/23/24 08:22 05/23/24 08:22 05/23/24 08:22
Physical Exam
General: No Apparent Distress and Comfortable
HEENT: Moist mucous membranes and Atraumatic
Respiratory: Rales (At the bases, no wheezes)
Cardiac: S1/S2 and Regular Rhythm
GI: Soft and Non Tender
Rectal: No Maroon Stools
Genito-urinary: No No costovertebral tender or Bo
Musculoskeletal: No Cyanosis and No Edema
Skin: No Jaundice
Neuro: AO x 3 and Nonfocal/grossly intact
Psych: Calm and Intact Judgment/Insight
Laboratory Results
-
05/23/24 07:31
05/23/24 07:31
Laboratory Results
Total Bilirubin 0.9 mg/dl (0.2-1.3) 05/23/24 07:31
AST 27 U/L (14-36) 05/23/24 07:31
ALT 21 U/L (0-35) 05/23/24 07:31
Alkaline Phosphatase 75 U/L (38-126) 05/23/24 07:31
Lipase 53 U/L (23-300) 05/23/24 07:31
Lipase Cancelled 05/23/24 07:31
Impression/Plan
-
63 years old female presented with fever and cough
#Neutropenic fever
Admit the patient to the hospital
Neutropenic precaution
Blood cultures x 2
MRSA screen
Urine test to rule out UTI
Urine for Legionella and strep Ag.
Tylenol for fever
Mucinex for cough
Continue with the broad-spectrum antibiotic IV cefepime and IV vancomycin
Consulted ID and oncology
# Community-acquired pneumonia
Hypoxia overnight with no respiratory distress
Positive sick contact
Negative COVID and influenza screen
Continue with oxygen supplementation
IV antibiotics
Does not take inhalers at home
Follow-up with pulmonary recommendations
# Mild hyponatremia
# Hypotension, seems a chronic. Patient denies weakness or dizziness
As needed midodrine
Patient is not toxic appearing
# History of Sjogren disease /rheumatoid arthritis
# History of non-Hodgkin's lymphoma. Currently not on treatment.
#Chronic urinary incontinence status post bladder surgery 4 weeks ago in [facility]
# History of insomnia/depression, continue with sertraline
Mood is a pleasant and cooperative
Total time spent to see the patient, examine the patient, review data and lab results, discuss treatment plan with patient, consultants, ER doctor and nursing staff around 75 minutes
[2024-05-23 08:53] LABS: Urine Albumin 2+ (Neg - Trace); Urine Bilirubin Negative (Negative); Urine Character Clear (Clear); Urine Color Yellow; Urine Glucose Negative (Negative); Urine Ketone Negative (Negative); Urine Leukocyte 1+ (Negative); Urine Nitrite Negative (Negative); Urine Occult Blood 2+ (Negative); Urine Specific Gravity 1.015 (<1.030); Urine Urobilinogen Negative (Neg - 1+); Urine pH 6.5 (5.0-9.0)
[2024-05-23 09:54] LABS: Urine Amorphous Seen; Urine Mucus Many; Urine Squamous Cell 16-20 /LPF (Few)
[2024-05-23 09:57] LABS: Urine Bacteria Few (Negative)
--- NOTE | 2024-05-23 11:20 | CON.ONC ---
Addendum entered and electronically signed by Latoya Lemon MD 05/23/24 22:31:
Pt seen and examined by me independently. She states her mixed connective tissue disorder is under good control.
Reviewed records from prior hospitalizations, including admission last year with very similar presentation, ANC 0 during that admission as well.
Given similarity to last year's presentation, low index of suspicion for underlying bone marrow dyscrasia.
Start GCSF for neutropic fever. Monitor fever curve andANC.
Thank you for consult, will follow along with you.
Original Note:
Documented by User: Juan Frazier MD, Resident 05/23/24 15:03
Impression
Impression
63 year old female
Febrile Neutropenia
Leukopenia
H/o Non-Hodgkin Lymphoma
Plan
Plan
#Febrile Neutropenia
#Leukopenia
- likely drug induced vs. infection induced. Has had URI symptoms x1 week, is still taking hydroxychloroquine and has received Rituxan infusion in January 2024.
- There may also be an autoimmune component given that she has multiple autoimmune conditions (RA, Lupus, Sjogren's).
- Given recurrent episode of Neutropenia in the setting of continued Rituxan tx and multiple autoimmune processes, she may be a candidate for GCSF. Will discuss risks and benefits with the patient prior to starting.
#H/o Non-Hodgkin Lymphoma
- recent PET scan 04/14/24 unremarkable for disease progression. On yearly Rituxan infusions
- Stable at this time, low concern for recurrence
Patient History
History of Present Illness
63 year old female with a PMHx of Non-Hodgkin lymphoma (2005) on yearly Rituxan dosing with last dose in January 2024, Rheumatoid Arthritis, Sjogren's, Dermatologic lupus who presented to the ED with 7 days fo cough and URI sx and x3d of fever as
high as 103.4F. She was brought to the ED and found to be Leukopenic (1.7) and Neutropenic (0.0). Has history of leukopenia and neutropenia within the last year on admissions to . On last admission in June 2023 she had Leukopenia/neutropenia. At
that time she was on Hydroxychloroquine and Augmentin which were thought to possible be contributing to her febrile neutropenia. infectious workup at that time was unrevealing. There was concern for infectious vs. drug induced vs. autoimmune vs.
primary hematologic causes at that time. She is still on hydroxychloroquine. Today her sx are improving on the IV antibiotics.
Past-Medical/Surgical History
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
Past Surgical History: Parotidectomy, sinus surgery, R hip replacement 12/13, L hip replacement 12/14, bladder surgery 05/17
Patient Medication
�Medication �Instructions �Recorded �Confirmed �Last Taken �Type
astaxanthin 4 mg capsule 4 mg PO DAILY Supplement 10/26/16 05/23/24 05/22/24 History
cevimeline 30 mg capsule (Evoxac) 30 mg PO TID dry mouth 10/26/16 05/23/24 05/23/24 History
Eye Support Vitamin 1 tab PO BID Supplement 06/15/20 05/23/24 05/22/24 History
Vein Support Vitamin 1 tab PO BID Supplement 06/15/20 05/23/24 05/22/24 History
Immune Support Vitamin 2 tab PO BID Supplement 07/16/23 05/23/24 05/22/24 History
MSM 2 tab PO BID Supplement 07/16/23 05/23/24 05/22/24 History
Rituxan 0 mg IV [id number] Autoimmune 07/16/23 05/23/24 5 Months Ago History
Disorder ~02/14/23
ascorbic acid (vitamin C) 500 mg 500 mg PO BID Supplement 07/16/23 05/23/24 05/22/24 History
tablet (Vitamin C)
cholecalciferol (vitamin D3) 25 25 mcg PO BID Supplement 05/05/23/24 05/22/24 History
mcg (1,000 unit) tablet
cyclosporine 0.05 % eye drops in a 1 drp BOTH EYES BID dry eyes 07/16/23 05/23/24 05/22/24 History
dropperette (Restasis)
folic acid 1 mg tablet 1 mg PO DAILY Supplement 07/16/23 05/23/24 05/23/24 History
glutathione 2 tab PO BID Supplement 07/16/23 05/23/24 05/22/24 History
hydroxychloroquine 200 mg tablet 200 mg PO BID Autoimmune Disorder 07/16/23 05/23/24 05/22/24 History
lifitegrast 5 % eye drops in a 1 drp BOTH EYES BID Eye Condition 07/16/23 05/23/24 05/22/24 History
dropperette (Xiidra)
sertraline 100 mg tablet 100 mg PO DAILY@1999 Depression 07/16/23 05/23/24 05/22/24 History
sertraline 25 mg tablet 25 mg PO DAILY@1999 Depression 07/16/23 05/23/24 05/22/24 History
therapeutic multivitamin 1 tab PO DAILY Supplement 07/16/23 05/23/24 05/22/24 History
zinc 1 dose PO DAILY Supplement 07/16/23 05/23/24 05/22/24 History
Review of Systems
-
History Source: Patient
All Other Systems: Reviewed and Negative
Constitutional: Reports Fever, Night Sweats, Chills and Weakness; Denies Weight Loss or Fatigue
EENT: Reports Runny Nose
Respiratory: Reports Cough; Denies Trouble Breathing or Wheezing
GI: Reports No Symptoms
Breast: Reports No Symptoms
: Reports No Symptoms
Musculoskeletal: Reports No Symptoms
Skin: Denies Itching or Rash
Neuro: Denies Dizzy, Headache, Weakness or Numbness
Endocrine: Reports No Symptoms
Hematologic/Lymphatic: Denies Bleeding, Swollen Glands or Bruising
Allergy / Immunology: Reports No Symptoms
Psych: Reports No Symptoms
Physical Exam
-
General: Well Developed, Well Nourished and No Apparent Distress
HEENT: Moist Mucous Membranes; Negative Jaundice
Cardiology: Normal Sinus Rhythm, S1 and S2; Negative Murmur
Pulmonary: Rales; Negative Wheezes or Rhonchi
GI: Soft and Normal Bowel Sounds; Negative Distended
Genito-Urinary: No Costovertebral Tenderness
Musculoskeletal: No Clubbing, No Cyanosis and No Edema
Extremities: Pulses Present
Neurology: Non Focal
Skin: Warm, Dry and IV Access / Catheter Site
Hematologic / Lymphatic: No Lymphadenopathy and No Petechiae
Psych: Calm
Labs
Lab Results
WBC 1.7 10^3/uL (4.8-10.8) L* 05/23/24 07:31
RBC 3.94 10^6/uL (4.20-5.40) L 05/23/24 07:
Hgb 11.9 g/dL (12.0-16.0) L 05/23/24 07:31
Hct 34.1 % (37.0-47.0) L 05/23/24 07:31
MCV 86.5 fL (81.0-99.0) 05/23/24 07:31
MCH 30.2 pg (27.0-31.0) 05/23/24 07:31
MCHC 34.9 g/dL (33.0-37.0) 05/23/24 07:
RDW 12.9 % (11.5-14.5) 05/23/24 07:31
Plt Count 176 10^3/uL (130-400) 05/23/24 07:31
MPV 9.2 fL (7.4-10.4) 05/23/24 07:31
Creatinine 0.5 mg/dL (0.6-1.0) L 05/23/24 07:31
Vital Signs
Vital Signs
Temp Pulse Resp BP Pulse Ox
100.1 F 81 31 91/53 94
05/23/24 04:51 05/23/24 10:30 05/23/24 10:30 05/23/24 10:00 05/23/24 10:15

Documented by User: Latoya Lemon MD 05/23/24 22:27
Impression
Impression
63 year old female
Febrile Neutropenia
Leukopenia
H/o Non-Hodgkin Lymphoma
Lupus/RA
Plan
Plan
#Febrile Neutropenia
#Leukopenia
- likely autoimmune vs. drug-induced vs. infection induced. Has had URI symptoms x1 week, is still taking hydroxychloroquine and has received Rituxan infusion in January 2024.
- There may also be an autoimmune component given that she has multiple autoimmune conditions (RA, Lupus, Sjogren's).
- Given recurrent episode of Neutropenia in the setting of continued Rituxan tx and multiple autoimmune processes, she may be a candidate for GCSF. Will discuss risks and benefits with the patient prior to starting.
#H/o Non-Hodgkin Lymphoma
- recent PET scan 04/14/24 unremarkable for disease progression. On yearly Rituxan infusions
- Stable at this time, low concern for recurrence
Patient History
History of Present Illness
63 year old female with a PMHx of Non-Hodgkin lymphoma (2005) on yearly Rituxan dosing with last dose in January 2024, Rheumatoid Arthritis, Sjogren's, Dermatologic lupus who presented to the ED with 7 days fo cough and URI sx and x3d of fever as
high as 103.4F. She was brought to the ED and found to be Leukopenic (1.7) and Neutropenic (0.0). Has history of leukopenia and neutropenia within the last year on admissions to . On last admission in June 2023 she had Leukopenia/neutropenia. At
that time she was on Hydroxychloroquine and Augmentin which were thought to possible be contributing to her febrile neutropenia. infectious workup at that time was unrevealing. There was concern for infectious vs. drug induced vs. autoimmune vs.
primary hematologic causes at that time. She is still on hydroxychloroquine. Today her sx are improving on the IV antibiotics. Similar presentation in 06/2023.
Past-Medical/Surgical History
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
Past Surgical History: Parotidectomy, sinus surgery, R hip replacement 12/13, L hip replacement 12/14, bladder surgery 05/17
Social History
Tobacco: Former Smoker (Very remote and brief)
Alcohol: None
Drug: None
Personal: Single
Living: Alone
Employment: Retired
Family History
Family History: Not pertinent
--- NOTE | 2024-05-23 13:22 | PHA.VAN.IN ---
Assessment
- Assessment
Renal Function: Appears similar to baseline
Maximum Temperature: 102.5
Minimum Temperature: 100.1
Concomitant Antimicrobials: cefepime
- Previous Dosing Experience
Previous Regimen: vancomycin 1000 mg Q24H
Date of Regimen: 07/17/23
Patient's SCR is: Decreased compared to previous dosing experience (0.7->0.5)
AUC Dosing Plan
- Dosing Variables
Dosing Weight (kg): 59.5
Dosing CrCl (ml/min): 74
Vd coefficient (L/kg): 0.7
- Empiric Dosing
Initial / Loading Dose: vancomycin 1500 mg x 1
Maintenance Regimen: vancomycin 750 mg Q12H
Estimated AUC (mcg*h/mL): 570
Estimated Peak (mcg*h/mL): 33.3
Estimated Trough (mcg/ml): 16.1
Estimated Half Life (H): 10.5
- Monitoring
No levels ordered at this time: consider levels in next few days
Pharmacokinetics Vancomycin I
- -
Patient Age: 63
Patient Sex: Female
Vancomycin Day #: 1
Indication: Neutropenic Fever
Requesting Provider: Dr. Jiémnez
Pertinent Antimicrobial Allergies:
nkda
Height / Weight:
Height 5 ft 2 in
Actual Weight 58.9 kg
IBW in k.1
Adjusted BW in k.6
Pertinent Past Medical History: neutropenia
- Vital Signs / Lab Results
Temp Pulse Resp BP Pulse Ox
102.5 F H 85 16 108/63 95
05/23/24 13:04 05/23/24 13:04 05/23/24 13:04 05/23/24 13:04 05/23/24 12:32
Lab Results - Hematology
05/23/24
07:31
WBC 1.7 L*
Band Neutrophils 0
Lab Results - Chemistry
05/23/24
07:31
BUN 13
Creatinine 0.5 L
Estimated Creat Clear 74
Albumin 3.4 L
Lab Results - Urine
05/23/24
08:43
Urine Nitrite (Reflex) Negative
Leukocyte Esterase Rfl 1+ A
Urine WBC (Reflex) 3-5
Ur Squamous Epith Cells 16-20
Urine Bacteria (Reflex) Few A
Microbiology Results
05/23/24 05:26 Influenza Types A & B (JACOB) - Final
Nasal Swab Negative for Influenza A & B, NAAT
Negative results must be combined with clinical observations
and patient history.
Nucleic Acid Amplification test (NAAT)performed on the
[employer] ID NOW platform.
[2024-05-23] MEDS: VANCOCIN 530 MG IV (14:13)
--- NOTE | 2024-05-23 14:41 | CON.PUL ---
Consultation
Consultation Request
Date/Time Consultation Requested: 05/23/2024
Date/Time Consultation Performed: 05/23/2024
Requesting Provider: Dipika Jiménez
Performing Provider: Agustin Duke
Reason for Consultation: Cough, fever
Medical History
-
Chief Complaint: Cough
History of Present Illness:
Very pleasant 63-year-old female presents to the hospital with cough and fever. Patient reports that about 8 days ago she started developing nasal congestion with dark greenish discharge. She started treating it with sinus rinses and the drainage
appeared to somewhat clear and turned more yellowish. She also reports sinus pressure. Over next few days she started developing some cough with minimal expectoration. And over the last 3 days she developed a temperature as high as 103 degree.
Patient is immunocompromised with history of lymphoma in the past, currently on rituximab and hydroxychloroquine for rheumatoid arthritis. In the emergency room chest x-ray was negative for any definitive infiltrate but was noted to have leukopenia
with absolute neutrophil count of 0. She tested negative for COVID and influenza screen. She was admitted to the hospital, started on broad-spectrum antibiotics. Pulmonary consultation was requested for concern for pneumonia.
Medical History
Past Medical History
Past Medical History: Reports Other (Rheumatoid arthritis, insomnia, Sjogren syndrome, GERD, aortic aneurysm, non-Hodgkin's lymphoma, osteopenia, urinary incontinence)
Past Surgical History: Reports Other (No recent major surgery)
Social History
Tobacco: Former Smoker (Very remote and brief)
Alcohol: None
Drug: None
Personal: Single
Living: Alone
Employment: Retired
Family History
Family History: Not pertinent
Allergies / Home Medications
Allergies
Allergy/AdvReac Type Severity Reaction Status Date / Time
latex Allergy Rash Verified 05/23/24 04:54
diazepam [From Valium] AdvReac Unknown Verified 05/23/24 04:54
Home Medications
�Medication �Instructions �Recorded �Confirmed �Last Taken �Type
astaxanthin 4 mg capsule 4 mg PO DAILY Supplement 10/26/16 05/23/24 05/22/24 History
cevimeline 30 mg capsule (Evoxac) 30 mg PO TID dry mouth 10/26/16 05/23/24 05/23/24 History
Eye Support Vitamin 1 tab PO BID Supplement 06/15/20 05/23/24 05/22/24 History
Vein Support Vitamin 1 tab PO BID Supplement 06/15/20 05/23/24 05/22/24 History
Immune Support Vitamin 2 tab PO BID Supplement 07/16/23 05/23/24 05/22/24 History
MSM 2 tab PO BID Supplement 07/16/23 05/23/24 05/22/24 History
Rituxan 0 mg IV [id number] Autoimmune 07/16/23 05/23/24 5 Months Ago History
Disorder ~02/14/23
ascorbic acid (vitamin C) 500 mg 500 mg PO BID Supplement 07/16/23 05/23/24 05/22/24 History
tablet (Vitamin C)
cholecalciferol (vitamin D3) 25 25 mcg PO BID Supplement 07/16/23 05/23/24 05/22/24 History
mcg (1,000 unit) tablet
cyclosporine 0.05 % eye drops in a 1 drp BOTH EYES BID dry eyes 07/16/23 05/23/24 05/22/24 History
dropperette (Restasis)
folic acid 1 mg tablet 1 mg PO DAILY Supplement 07/16/23 05/23/24 05/23/24 History
glutathione 2 tab PO BID Supplement 07/16/23 05/23/24 05/22/24 History
hydroxychloroquine 200 mg tablet 200 mg PO BID Autoimmune Disorder 07/16/23 05/23/24 05/22/24 History
lifitegrast 5 % eye drops in a 1 drp BOTH EYES BID Eye Condition 07/16/23 05/23/24 05/22/24 History
dropperette (Xiidra)
sertraline 100 mg tablet 100 mg PO DAILY@2000 Depression 07/16/23 05/23/24 05/22/24 History
sertraline 25 mg tablet 25 mg PO DAILY@1999 Depression 07/16/23 05/23/24 05/22/24 History
therapeutic multivitamin 1 tab PO DAILY Supplement 07/16/23 05/23/24 05/22/24 History
zinc 1 dose PO DAILY Supplement 07/16/23 05/23/24 05/22/24 History
Review of Systems
-
Hematologic/Lymphatic: Other (All 14 systems reviewed and negative except as stated above in the history of present illness.)
Vitals / Labs / Diagnostic Testing
Vital Signs
Temp Pulse Resp BP Pulse Ox
102.5 F H 85 16 108/63 95
05/23/24 13:04 05/23/24 13:04 05/23/24 13:04 05/23/24 13:04 05/23/24 12:32
Lab Data
05/23/24 07:31
05/23/24 07:31
Microbiology
05/23/24 05:26 Nasal Swab Influenza Types A & B (JACOB) - Final
Negative for Influenza A & B, NAAT
Negative results must be combined with clinical observations
and patient history.
Nucleic Acid Amplification test (NAAT)performed on the
[employer] platform.
Diagnostic Testing:
Physical Exam
-
HEENT: Normocephalic and Moist Mucous Membranes
Cardiovascular: S1/S2
Respiratory: Clear and Non-Labored Respirations
GI: Soft and Non Distended
Neurology: Awake and Alert
Skin: Warm and Dry
General: Comfortable
Assessment
-
#1. Neutropenic fever. ?Etiology.
-Patient appears to have symptoms of upper respiratory tract/sinusitis that she has been self treating with sinus rinses etc
-Chest x-ray not suggestive of pneumonia. Influenza screen is negative. Likely underlying tracheobronchitis.
-Continue broad-spectrum antibiotic and follow-up on cultures
-Sputum culture if patient is able to bring any
-If no response in next 24 hours, recommend getting CT of sinuses
#2. AIDAN nodule, 6 mm. Incidentally noted on PET/CT
-Minimal FDG avidity, reportedly improving compared to prior scan
-Patient will need a 6-month follow-up CT or PET/CT for ongoing evaluation
-Will arrange follow-up with pulmonary clinic as outpatient
#3/ h/o non-Hodgkin lymphoma, 2006, in remission
-Recent PET/CT is unremarkable
-Current presentation does not appear to be related to active lymphoma
#4. h/o Rheumatoid arthritis
-Patient is on rituximab as well as oral hydroxychloroquine for rheumatoid arthritis
-No pulmonary manifestations of rheumatoid arthritis noted on imaging
Total time spent on this consultation/encounter __60__ minutes which includes review of history, physical exam, medications, laboratory data, personal review of imaging, extensive review of outpatient records, discussion with care team and
respiratory therapy.
DATA:
CXR 04/2024: No infiltrates. Mild hyper inflation suggesting underlying COPD.
PET-CT 03/2024: There is no hypermetabolic lymphadenopathy, specifically no hypermetabolic left cervical lymph nodes or right inguinal lymph nodes.
There is a 6 mm nodule within the medial left upper lobe adjacent to the aorta which demonstrates mild FDG avidity with a max SUV of 2.4. This has decreased in activity from prior and may represent evolving infectious/inflammatory process although
follow-up CT chest is recommended to ensure resolution.
[2024-05-23] MEDS: STERILE WATER FOR INJECTION 10 ML IV ×2 (14:45→21:06)
[2024-05-23] MEDS: ROBITUSSIN AC 10 ML PO ×2 (14:45→19:49)
[2024-05-23] MEDS: MAXIPIME 2000 MG IV ×2 (14:45→21:06)
[2024-05-23] MEDS: GRANIX 300 MCG SC (19:47)
[2024-05-23] MEDS: HEPARIN 5000 UNITS SC (19:48)
[2024-05-23] MEDS: ZOLOFT 25 MG PO (19:48)
[2024-05-23] MEDS: ZOLOFT 100 MG PO (19:48)
[2024-05-23] MEDS: VIBRAMYCIN 100 MG PO (19:48)
[2024-05-23] MEDS: RESTASIS 0.05% OPHTHALMIC EMULSION 1 DROPS BOTH EYES (19:49)
[2024-05-23] MEDS: PLAQUENIL 200 MG PO (19:49)
[2024-05-23] MEDS: NON-FORMULARY ITEM PO (20:06)
[2024-05-23] MEDS: NON-FORMULARY ITEM 30 MG PO (20:10)
[2024-05-24] MEDS: ROBITUSSIN AC 10 ML PO ×3 (00:03→22:18)
[2024-05-24] MEDS: NSS 1000 IV (04:18)
[2024-05-24] MEDS: VANCOCIN 150 IV (05:19)
[2024-05-24] MEDS: STERILE WATER FOR INJECTION 10 ML IV ×3 (05:19→22:18)
[2024-05-24] MEDS: MAXIPIME 2000 MG IV ×3 (05:19→22:18)
[2024-05-24] MEDS: NON-FORMULARY ITEM 30 MG PO ×3 (06:24→20:19)
[2024-05-24 07:15] VITALS: BP 86/48
[2024-05-24] MEDS: VIBRAMYCIN 100 MG PO ×2 (07:58→20:19)
[2024-05-24] MEDS: RESTASIS 0.05% OPHTHALMIC EMULSION 1 DROPS BOTH EYES ×2 (07:58→20:20)
[2024-05-24] MEDS: ProAmatine 2.5 MG PO ×2 (07:58→16:47)
[2024-05-24] MEDS: HEPARIN 5000 UNITS SC ×2 (07:59→20:19)
[2024-05-24] MEDS: FOLVITE 1 MG PO (07:59)
[2024-05-24] MEDS: PLAQUENIL 200 MG PO ×2 (07:59→20:19)
[2024-05-24] MEDS: GRANIX 300 MCG SC (07:59)
--- NOTE | 2024-05-24 08:21 | W.PN.PUL3 ---
Today's Communication / Plan
-
-Follow up sputum cultures
Assessment
-
3-year-old female presents to the hospital with cough and fever. Patient reports that about 8 days ago she started developing nasal congestion with dark greenish discharge. She started treating it with sinus rinses and the drainage appeared to
somewhat clear and turned more yellowish. She also reports sinus pressure. Over next few days she started developing some cough with minimal expectoration. And over the last 3 days she developed a temperature as high as 103 degree. Patient is
immunocompromised with history of lymphoma in the past, currently on rituximab and hydroxychloroquine for rheumatoid arthritis. In the emergency room chest x-ray was negative for any definitive infiltrate but was noted to have leukopenia with
absolute neutrophil count of 0. She tested negative for COVID and influenza screen. She was admitted to the hospital, started on broad-spectrum antibiotics. Pulmonary consultation was requested for concern for pneumonia.
Assessment and plan:
#1. Neutropenic fever with RLL pneumonia, trace parapneumonia effusion
-Initial chest x-ray was unremarkable, follow-up CT chest suggestive of right lower lobe pneumonia
-Continue current antibiotics, follow-up on cultures
-Patient on Granix in view of neutropenia
-Cefepime and Doxycycline currently. Abx per ID service
-If does not respond, will have low threshold for Bronchoscopy and BAL in view of immunocompromised status
#2. AIDAN nodule, 6 mm. Incidentally noted on PET/CT
-Minimal FDG avidity, reportedly improving compared to prior scan
-Patient will need a 6-month follow-up CT or PET/CT for ongoing evaluation
-Will arrange follow-up with pulmonary clinic as outpatient
#3/ h/o non-Hodgkin lymphoma, 2006, in remission
-Recent PET/CT is unremarkable
-Current presentation does not appear to be related to active lymphoma
#4. h/o Rheumatoid arthritis
-Patient is on rituximab as well as oral hydroxychloroquine for rheumatoid arthritis
-No pulmonary manifestations of rheumatoid arthritis noted on imaging
Total time spent on this consultation/encounter _38__ minutes which includes review of history, physical exam, medications, laboratory data, personal review of imaging, extensive review of outpatient records, discussion with care team and
respiratory therapy.
DATA:
Chest CT 04/2024: 1. MODERATE to SEVERE RIGHT LOWER LOBE PNEUMONIA.
2. Mild subpleural subsegmental atelectasis and scarring in the basilar left lower lobe.
3. Minimal bilateral pleural effusions.
4. Mild cardiomegaly.
5. Moderate multilevel mid and lower thoracic discogenic degenerative disease.
CXR 04/2024: No infiltrates. Mild hyper inflation suggesting underlying COPD.
PET-CT 03/2024: There is no hypermetabolic lymphadenopathy, specifically no hypermetabolic left cervical lymph nodes or right inguinal lymph nodes.
There is a 6 mm nodule within the medial left upper lobe adjacent to the aorta which demonstrates mild FDG avidity with a max SUV of 2.4. This has decreased in activity from prior and may represent evolving infectious/inflammatory process although
follow-up CT chest is recommended to ensure resolution.
Subjective Data
-
Date of Service:
Date of Service: May 24, 2024
Subjective:
Patient reports feeling overall better with improved coughing.
Review of Systems
Genitourinary: Other (All 14 systems reviewed and negative except as stated above in the history of present illness.)
Objective Data
Data Reviewed
Vital Signs / I&O / Oxygen:
Vital Signs
Temp Pulse Resp BP Pulse Ox
99.3 F 71 16 86/48 95
05/24/24 07:15 05/24/24 07:15 05/24/24 07:15 05/24/24 07:58 05/24/24 07:15
Intake and Output
05/23/24 05/24/24 05/25/24
06:59 06:59 06:59
Intake Total 2630 / 2630
Balance 2630 / 2630
SaO2 95
Nasal Cannula flow liters per 2
minute
Physical Exam
General: Comfortable
HEENT: Normocephalic
Cardiovascular: S1-S2
Respiratory: Clear, Crackles (Few inspiratory rales on the right side.) and Non-Labored Respirations
GI: Soft and Non Distended
Neurology: Awake and Alert
Labs/Micro/Reports
Microbiology
05/23/24 19:26 Urine Legionella Urinary Antigen - Final
Negative for Legionella pneumophila Serogroup 1 antigen.
A negative result does not rule out the possiblity of
Legionella infection due to other serogroups or species of
Legionella. Clinical correlation is recommended.
05/23/24 19:26 Urine Streptococcus pneumoniae Antigen (M - Final
Negative for Streptococcus pneumoniae antigen.
A negative result does not exclude infection with
Streptococcus pneumoniae. Clinical correlation is
recommended.
05/23/24 05:26 Nasal Swab Influenza Types A & B (JACOB) - Final
Negative for Influenza A & B, NAAT
Negative results must be combined with clinical observations
and patient history.
Nucleic Acid Amplification test (NAAT)performed on the
[employer] platform.
--- NOTE | 2024-05-24 08:29 | PHA.VAN.FU ---
Vancomycin Assessment / Plan
- Assessment
Renal Function: Stable (0.6)
WBC's are: Stable (1.7)
In the past 24 hrs, patient has been: Febrile (102.5)
Concomitant Antimicrobials: Cefepime, Doxycycline, Hydroxychloroquine
- Dosing Plan
Continue: Vanco 750mg Q12H
- Monitoring Plan
No level(s) ordered at this time: Consider in the next few days
- Follow Up
Pharmacy will continue to follow.
Vancomycin Follow UP
- -
Patient Age: 63
Patient Sex: Female
Vancomycin Day #: 2
Indication: Neutropenic Fever
Requesting Provider: Dr. Jiménez
Pertinent Antimicrobial Allergies:
nkda
Height / Weight:
Height 5 ft 2 in
Actual Weight 59.477 kg
IBW in k.1
Adjusted BW in k.6
Pertinent Past Medical History: neutropenia
- Vital Signs / Lab Results
Temp Pulse Resp BP Pulse Ox
99.3 F 71 16 86/48 95
05/24/24 07:15 05/24/24 07:15 05/24/24 07:15 05/24/24 07:58 05/24/24 07:15
Lab Results - Hematology
05/23/24
07:31
WBC 1.7 L*
Band Neutrophils 0
Lab Results - Chemistry
05/23/24
07:31
BUN 13
Creatinine 0.5 L
Estimated Creat Clear 74
Albumin 3.4 L
Lab Results - Urine
05/23/24
08:43
Urine Nitrite (Reflex) Negative
Leukocyte Esterase Rfl 1+ A
Ur Squamous Epith Cells 16-20
Microbiology Results
05/23/24 19:26 Legionella Urinary Antigen - Final
Urine Negative for Legionella pneumophila Serogroup 1 antigen.
A negative result does not rule out the possiblity of
Legionella infection due to other serogroups or species of
Legionella. Clinical correlation is recommended.
Streptococcus pneumoniae Antigen (M - Final
Negative for Streptococcus pneumoniae antigen.
A negative result does not exclude infection with
Streptococcus pneumoniae. Clinical correlation is
recommended.
05/23/24 05:26 Influenza Types A & B (JACOB) - Final
Nasal Swab Negative for Influenza A & B, NAAT
Negative results must be combined with clinical observations
and patient history.
Nucleic Acid Amplification test (NAAT)performed on the
[employer] platform.
[2024-05-24 08:35] LABS: Blood Urea Nitrogen 9 mg/dl (7-17); Calcium 7.8 mg/dl (8.4-10.2); Carbon Dioxide 25 mmol/L (22-30); Chloride 112 mmol/L (98-107); Estimated Creatinine Clearance 74 ml/min; Glucose 94 mg/dl (70-99); Potassium 3.9 mmol/L (3.5-5.1); Sodium 139 mmol/L (135-145); eGFR > 60.00
[2024-05-24] MEDS: NSS IV (08:38)
[2024-05-24 08:52] LABS: Hematocrit 28.2 % (37.0-47.0); Hemoglobin 9.6 g/dL (12.0-16.0); Mean Corpuscular Volume 88.1 fL (81.0-99.0); Mean Platelet Volume 10.1 fL (7.4-10.4); Platelet Count 147 10^3/uL (130-400); Red Cell Dist. Width 13.5 % (11.5-14.5); White Blood Cell Count 1.7 10^3/uL (4.8-10.8)
--- NOTE | 2024-05-24 09:36 | W.PN.HOSP.TC ---
Addendum entered and electronically signed by Dipika Jiménez MD 05/24/24 12:01:
CAT scan findings are noted. Result was consistent with my assessment.
Original Note:
Today's Communication/Plan
-
I talked to hematology lab, diff count is delayed but will be done today
No improvement in lung exam, still cough with hypoxia, see note
Assessment / Plan
Assessment / Plan
Physical Exam
General: No Apparent Distress and Comfortable
HEENT: Moist mucous membranes and Atraumatic
Respiratory: Rales (At the bases, no wheezes)
Cardiac: S1/S2 and Regular Rhythm
GI: Soft and Non Tender
Rectal: No Maroon Stools
Genito-urinary: No No costovertebral tender or Bo
Musculoskeletal: No Cyanosis and No Edema
Skin: No Jaundice
Neuro: AO x 3 and Nonfocal/grossly intact
Psych: Calm and Intact Judgment/Insight
63 years old female presented with fever and cough
#Neutropenic fever
No fever this morning
Neutropenic precaution
negative Blood cultures x 2
MRSA screen is pending
Urine culture is pending
Urine for Legionella and strep Ag. Negative
Tylenol for fever
Mucinex for cough
Continue with the broad-spectrum antibiotic IV cefepime and IV vancomycin
Consulted ID and oncology
# Neutropenia
I talked to hematology lab, diff count is delayed but will be done today
Given SQ Granix day # 2
# Community-acquired pneumonia
Still hypoxia with cough
Lung exam unchanged, still rales.
Lack of Chest x ray findings is not unusual in immunocompromised pt when they cant mount inflammatory response
Will do CT chest to better look at lungs
Positive sick contact
Negative COVID and influenza screen
Continue with oxygen supplementation
IV antibiotics, Doxy, Vancomycin & Cefepime.
Does not take inhalers at home
# Mild hyponatremia, improved.
# Nausea, PRN Zofran given
No abdominal pain
# Chronic Hypotension, per records back to 2021. Patient denies weakness or dizziness
As needed midodrine
Patient is not toxic appearing
# History of generalized anxiety disorder/panic attacks.
continue with sertraline
Mood is a pleasant and cooperative
# History of Sjogren disease /rheumatoid arthritis
# History of non-Hodgkin's lymphoma. Currently not on treatment.
#Chronic urinary incontinence status post bladder surgery 4 weeks ago in [facility]
Total time spent to see the patient, examine the patient, review data and lab results, discuss treatment plan with patient, consultants, nursing staff around 57 minutes
Anticipated Discharge: > 48 hours
Subjective/Interval History
-
Date of Service: May 24, 2024
Still cough
No fever, feels a little better today
Objective Data
-
Labs:
Laboratory Results
05/24/24
05:51
WBC 1.7 L*
Hgb 9.6 L
Hct 28.2 L
Plt Count 147
Sodium 139
Potassium 3.9
Chloride 112 H
Carbon Dioxide 25
BUN 9
Creatinine 0.6
Glucose 94
Calcium 7.8 L
Vital Signs:
Vital Signs
Temp Pulse Resp BP Pulse Ox
99.3 F 71 16 86/48 95
05/24/24 07:15 05/24/24 07:15 05/24/24 07:15 05/24/24 07:58 05/24/24 07:15
I&O
05/23/24 05/24/24 05/25/24
06:59 06:59 06:59
Intake Total 2630 / 2630
Balance 2630 / 2630
--- NOTE | 2024-05-24 10:31 | CM ---
Patient seen at bedside. Patient stated that she lives alone in a one story, modular home. Patient has 4 steps to enter, no DME and Dr. Tirado is her PCP. Patient uses the [facility] on [address] for pharmacy needs. Patient has her car here and plan
is to drive herself home. Patient with no complaints at this time. Patient has O2 on currently and has no home O2. Patient requested information regarding advance directives and information provided. Patient complaining how hard it is to stay in
bed. CM will continue to follow for discharge planning needs.
Plan; home with no needs vs home with VN
--- NOTE | 2024-05-24 10:57 | CON.ID ---
Consultation
-
Date/Time Consultation Requested: 05/23/2024 1303
Date/Time Consultation Performed: 05/24/2024 1100
Requesting Provider: Dr. Leyda Jiménez
Performing Provider: Dr. Ebonie Garcias
Reason for Consultation: Neutropenia, cough green sputum
Chief Complaint / Past History
Chief Complaint
Cough, fever
History of Present Illness
62-year-old female with significant past medical history RA, Sjogren's on Plaquenil and Rituxan now once a year, last received 01/2024 who presented to the ER May 23 due to URI symptoms and fever. She reports approximately 1 week history of sore
throat, runny nose, cough productive of yellow-greenish sputum. She was exposed to a friend with pneumonia, then her daughter and granddaughter with cold symptoms. No shortness of breath. Positive fever up to 103. Positive chills and malaise.
No travel history. In the ED temperature 102.5. Absolute neutrophil count 0. Chest x-ray shows hyperinflated lungs. She was started on cefepime, IV vancomycin, and doxycycline. Cough is little bit better. Sputum is now light yellow. Of note
patient presented with neutropenia June 2023. At that time she was receiving Rituxan every 4 months. Since then she has decided to decrease to once a year which she last received January 2024. No new medicines.
Past History
Additional Past Medical History:
Rheumatoid arthritis on Rituxan and hydroxychloroquine
Sjogren's
Non-Hodgkin's lymphoma s/p parotidectomy (in remission from 2003)
Aortic aneurysm
GERD
Anxiety
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
Urinary incontinence s/p bladder surgery with autograft 05/03/2024
R THR
Additional Past Surgical History:
Skin biopsy
Allergy History:
latex Allergy (Verified 05/23/24 04:54)
Rash
diazepam [From Valium] Adverse Reaction (Verified 05/23/24 04:54)
Unknown
Medications Reviewed: Yes
Current Antibiotics:
Cefepime 2g IV q8
Vancomycin IV
Doxycycline 100mg po bid
Social History
Tobacco: Former Smoker
Alcohol: None
Drug: None
Employment: Retired
Family History
Family History: Not Pertinent
Review of Systems
Review of Systems
General: Fever, Chills and Change in Appetite
HEENT: Pharyngitis (improved); Negative Stiff Neck or Headache
Cardiovascular: Negative Chest Pain
Respiratory: Sputum Production; Negative Dyspnea or Cough
Gasteroenterology: Nausea; Negative Diarrhea
Genital / Urological: Negative Dysuria or Flank Pain
Musculoskeletal: Negative Joint Pain
Skin / Hair / Nails: Negative Rash
Neurological: Negative Dizziness
All systems: All other systems were reviewed and were negative
Vital Signs
Temp Pulse Resp BP Pulse Ox
99.3 F 71 16 86/48 95
05/24/24 07:15 05/24/24 07:15 05/24/24 07:15 05/24/24 07:58 05/24/24 07:15
Selected Entries
05/23/24
13:04
Temp 102.5 F H
Physical Exam
Physical Exam
Constitutional: No Acute Distress and Non-toxic
Head: Other (No frontal or maxillary or sinus tenderness)
Eyes: No Conjunctival Hemorrhage and Sclera Anicteric
Oral: No Thrush and No Ulcers
Cardiovascular: Regular Rate and S1/S2
Pulmonary: Rales (Bilateral crackles)
Gastrointestinal: Soft, Non Tender, Non Distended and Normal Bowel Sounds
Genito-Urinary: Negative Suprapubic Tenderness or CVA Tenderness
Extremities: Negative Edema
Musculoskeletal: Negative Spinal Tenderness
Neurological: AO x 3
Lab / Diagnostic Study Results
05/24/24 05:51
05/24/24 05:51
Total Counted 100 05/23/24 07:31
Abs Neuts (Manual) 0.0 10^3/uL (1.4-6.5) L* 05/23/24 07:31
Segmented Neutrophils 0 % (42-75) L 05/23/24 07:31
Band Neutrophils 0 % (0-3) 05/23/24 07:31
Lymphocytes (Manual) 47 % (20-51) 05/23/24 07:31
Ur Squamous Epith Cells 16-20 /LPF (Few) 05/23/24 08:43
Microbiology Results
Micro:
05/23/24 08:43 Blood Culture - Preliminary
Blood/Venous No Growth in 24 hours- Final report to follow
05/23/24 08:43 Blood Culture - Preliminary
Blood/Venous No Growth in 24 hours- Final report to follow
05/23/24 19:26 Legionella Urinary Antigen - Final
Urine Negative for Legionella pneumophila Serogroup 1 antigen.
A negative result does not rule out the possiblity of
Legionella infection due to other serogroups or species of
Legionella. Clinical correlation is recommended.
Streptococcus pneumoniae Antigen (M - Final
Negative for Streptococcus pneumoniae antigen.
A negative result does not exclude infection with
Streptococcus pneumoniae. Clinical correlation is
recommended.
05/23/24 16:02 MRSA Screen - Pending
Nose
05/23/24 08:43 Urine Culture - Pending
Urine
05/23/24 05:26 Influenza Types A & B (JACOB) - Final
Nasal Swab Negative for Influenza A & B, NAAT
Negative results must be combined with clinical observations
and patient history.
Nucleic Acid Amplification test (NAAT)performed on the
[employer] platform.
05/24/[address]: MODERATE to SEVERE RIGHT LOWER LOBE PNEUMONIA.
05/23/24 CXR: Hyperaeration suggests a component of COPD
Assessment / Plan
# Neutropenic fever
# RLL PNA
# RA on rituxan (now once a year, last received 01/2024)
- COVID/flu neg
-Blood cx's neg to date.
- Urine Legionella, pneumococcal Ag negative (not sensitive tests)
- Chest CT moderate to severe RLL opacity
- Check sputum cx
-Continue cefepime, doxycycline
-DC Vancomycin.
-Follow temps
- Suspect Rituxan source of neutropenia as previous.
Await for bone marrow recovery with GCSF
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
Rheumatoid arthritis on Rituxan and hydroxychloroquine
Sjogren's
Non-Hodgkin's lymphoma s/p parotidectomy (in remission from 2003)
Aortic aneurysm
GERD
Anxiety
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
Urinary incontinence s/p bladder surgery with autograft 05/03/2024
R THR
--- NOTE | 2024-05-24 11:29 | W.PN.UPDATE ---
Update Note
Progress Note Update
Patient not in her room
CBC reviewed, WBC stable, ANC pending
Continue antibiotics per primary team
Continue daily Granix for now
Will follow
[2024-05-24 12:03] VITALS: BP 91/55
[2024-05-24] MEDS: TYLENOL 1000 MG PO (13:08)
[2024-05-24 13:56] LABS: Band Neutrophils 0 % (0-3); Lymphocytes 57 % (20-51); Segmented Neutrophils 5 % (42-75)
[2024-05-24 13:57] LABS: Atypical Lymphocytes 4 %; Monocytes 34 % (2-9); Normal RBC Morphology Yes; Platelets Checked Yes
--- NOTE | 2024-05-24 14:05 | PTCARENOTE ---
pt oob independently. on 2 L of O2. sputum sample sent per order. pt verbalized RACHEL, prn tylenol given. stating hot and cold flashes. temp checked 99.4.
[2024-05-24 15:10] VITALS: BP 83/46
[2024-05-24 15:32] LABS: Total Cells Counted 100
[2024-05-24 18:09] VITALS: BP 94/52
[2024-05-24] MEDS: ZOLOFT 25 MG PO (20:19)
[2024-05-24] MEDS: ZOLOFT 100 MG PO (20:19)
[2024-05-24] MEDS: ZOFRAN 4 MG IV (21:01)
[2024-05-24 23:25] VITALS: BP 90/45
[2024-05-25] MEDS: TYLENOL 1000 MG PO (00:44)
[2024-05-25] MEDS: NON-FORMULARY ITEM 30 MG PO ×3 (06:16→20:46)
[2024-05-25] MEDS: MAXIPIME 2000 MG IV ×3 (06:16→21:48)
[2024-05-25] MEDS: STERILE WATER FOR INJECTION 10 ML IV ×3 (06:16→21:48)
--- NOTE | 2024-05-25 07:07 | W.PN.ONC2 ---
Today's Communication / Plan
-
CBC pending. ANC was 0.0 yesterday. Continue antibiotics (cefepime + doxycycline) per infectious disease and Granix.
Impression
Impression
63 year old female
Febrile Neutropenia
Leukopenia
H/o Non-Hodgkin Lymphoma
Sjogren's/RA
Plan
Plan
#Febrile Neutropenia
#Leukopenia
- likely autoimmune vs. drug-induced vs. infection induced. Has had URI symptoms x1 week, is still taking hydroxychloroquine and has received Rituxan infusion in January 2024.
- There may also be an autoimmune component given that she has multiple autoimmune conditions (RA, Lupus, Sjogren's).
- Given recurrent episode of Neutropenia in the setting of continued Rituxan tx and multiple autoimmune processes, G-CSF was initiated.
- Bone pain that she is having is likely related to G-CSF.
#H/o Non-Hodgkin Lymphoma
- recent PET scan 04/14/24 unremarkable for disease progression. On yearly Rituxan infusions
- Stable at this time, low concern for recurrence
Subjective/Objective
Chief Complaint
ACS heme-onc progress note follow-up
Subjective
Patient has no complaints other than bilateral bilateral back pain that probably is from Granix.
Vital Signs:
Vital Signs
Temp Pulse Resp BP Pulse Ox
98.9 F 70 17 90/45 95
05/24/24 23:25 05/24/24 23:25 05/24/24 23:25 05/24/24 23:25 05/24/24 23:25
Lab Results:
Laboratory Data
WBC 1.7 10^3/uL (4.8-10.8) L* 05/24/24 05:51
Hgb 9.6 g/dL (12.0-16.0) L 05/24/24 05:51
Plt Count 147 10^3/uL (130-400) 05/24/24 05:51
eGFR > 60.00 05/24/24 05:51
Physical Exam
HEENT: No Jaundice
Cardiology: S1 and S2; No Murmur
Pulmonary: Clear
GI: Soft
Extremities: No Edema
[2024-05-25 07:15] VITALS: BP 102/56
--- NOTE | 2024-05-25 07:49 | W.PN.HOSP.TC ---
Today's Communication/Plan
-
c/w IV Abx
Add Tessalon
Order CBC with Diff
Assessment / Plan
Assessment / Plan
Physical Exam
General: No Apparent Distress and Comfortable
HEENT: Moist mucous membranes and Atraumatic
Respiratory: much better, no Rales ( no wheezes)
Cardiac: S1/S2 and Regular Rhythm
GI: Soft and Non Tender
Rectal: No Maroon Stools
Genito-urinary: No No costovertebral tender or Bo
Musculoskeletal: No Cyanosis and No Edema
Skin: No Jaundice
Neuro: AO x 3 and Nonfocal/grossly intact
Psych: Calm and Intact Judgment/Insight
63 years old female presented with fever and cough
#Neutropenic fever
No fever this morning
Neutropenic precaution
negative Blood cultures x 2
MRSA screen is pending
Urine culture is pending
Urine for Legionella and strep Ag. Negative
Tylenol for fever
Mucinex for cough
Continue with the broad-spectrum antibiotic IV cefepime and IV vancomycin
Consulted ID and oncology
# Neutropenia
Will order CBC with diff
Given SQ Granix day # 3
# Community-acquired pneumonia, right sided PNA
Same cough, will order Tessalon
hypoxia with cough
Lung exam is better today
Positive sick contact
Negative COVID and influenza screen
c/woxygen supplementation
s/p IV antibiotics, Doxy, Vancomycin & Cefepime. now on Doxy and cefepime
Does not take inhalers at home
# Mild hyponatremia, improved.
# Nausea, PRN Zofran given
No abdominal pain
# Chronic Hypotension, per records back to 2021. Patient denies weakness or dizziness
d/w daughter also, pt runs low with no symptoms.
As needed midodrine only for SBP lower than 80
Patient is not toxic appearing
# History of generalized anxiety disorder/panic attacks.
continue with sertraline
Mood is a pleasant and cooperative
# History of Sjogren disease /rheumatoid arthritis
# History of non-Hodgkin's lymphoma. Currently not on treatment.
#Chronic urinary incontinence status post bladder surgery 4 weeks ago in [facility]
Total time spent to see the patient, examine the patient, review data and lab results, discuss treatment plan with patient, consultants, nursing staff around 57 minutes
Anticipated Discharge: > 48 hours
Subjective/Interval History
-
Date of Service: May 25, 2024
Doing well
Still cough ( unchanged)
No sob
Objective Data
-
Vital Signs:
Vital Signs
Temp Pulse Resp BP Pulse Ox
98.9 F 70 17 90/45 95
05/24/24 23:25 05/24/24 23:25 05/24/24 23:25 05/24/24 23:25 05/24/24 23:25
I&O
05/24/24 05/25/24 05/26/24
06:59 06:59 06:59
Intake Total 2630 / 2630 2160 / 2160
Balance 2630 / 2630 2159 / 216
[2024-05-25] MEDS: VIBRAMYCIN 100 MG PO ×2 (08:17→20:45)
[2024-05-25] MEDS: PLAQUENIL 200 MG PO (08:17)
[2024-05-25] MEDS: HEPARIN 5000 UNITS SC ×2 (08:17→20:46)
[2024-05-25] MEDS: FOLVITE 1 MG PO (08:17)
[2024-05-25] MEDS: RESTASIS 0.05% OPHTHALMIC EMULSION 1 DROPS BOTH EYES (08:17)
[2024-05-25] MEDS: GRANIX 300 MCG SC (08:19)
[2024-05-25] MEDS: ROBITUSSIN AC 10 ML PO ×2 (08:47→13:45)
--- NOTE | 2024-05-25 09:11 | PN.CDI ---
Addendum entered and electronically signed by Dipika Jiménez MD 05/25/24 09:29:
Localized Infection Only, Without Systemic Illness
Original Note:
CDI
- -
CDI:
Physician Documentation Request
Admit Date: 05/23/24 09:27
Dear Doctor Jessy,
Patient admitted for neutropenic fever and pneumonia.
WBC 1.7
T max 05/23 102.5 , reports fever at home of 103
05/23 heart rates 80s-70s
05/23 presenting Respiratory rates 16-28
Please clarify which of the following most accurately describes the status of the patient's infection:
Sepsis
- Systemic manifestations of infection, with 2 or more SIRS criteria which include:
- Fever >100.9 degrees F or hypothermia < 96.8 degrees F
- Leukocytosis - WBC > 12,000 or leukopenia - WBC < 4,000 or > 10% bands
- Tachycardia > 90 beats per minute
- Tachypnea - RR > 20 breaths per minute or PaCO2 , 32mmHg
Source: [employer]ck Manual 2013
Localized Infection Only, Without Systemic Illness
Other
Use of terms such as suspected, likely, concern for, or probable (associated with a specific diagnosis that is being evaluated, monitored, or treated as if it exists) are acceptable and can be coded in the inpatient setting, when documented at the
time of discharge.
Thank you,
Cathy Gay RN, BSN
CDI Specialist
tiger text
Please use your independent medical judgment in providing your response.
[2024-05-25 09:17] LABS: Hematocrit 29.7 % (37.0-47.0); Hemoglobin 10.1 g/dL (12.0-16.0); Mean Corpuscular Hgb 29.7 pg (27.0-31.0); Mean Corpuscular Volume 87.4 fL (81.0-99.0); Mean Platelet Volume 9.5 fL (7.4-10.4); Platelet Count 166 10^3/uL (130-400); Red Cell Dist. Width 13.6 % (11.5-14.5); White Blood Cell Count 2.7 10^3/uL (4.8-10.8)
[2024-05-25] MEDS: TESSALON PERLES 200 MG PO ×2 (09:56→20:45)
--- NOTE | 2024-05-25 11:06 | CM ---
Patient and daughter seen at bedside. Patient is on O2 and patient does not have home O2. Patient for possible home O2 need. CM will continue to follow for discharge planning needs.
Plan; home with VN vs home with no needs; watch home O2 assessment needs
[2024-05-25 11:14] LABS: Atypical Lymphocytes 2 %; Band Neutrophils 3 % (0-3); Eosinophils 7 % (0-6); Lymphocytes 31 % (20-51); Metamyelocytes 5 % (-); Monocytes 40 % (2-9); Myelocytes 3 % (-); Segmented Neutrophils 7 % (42-75)
[2024-05-25 11:15] LABS: Normal RBC Morphology Yes; Platelets Checked Yes
[2024-05-25 11:17] LABS: Absolute Neutrophils -Man Diff 0.2 10^3/uL (1.4-6.5); Total Cells Counted 100
--- NOTE | 2024-05-25 12:09 | W.PN.PUL3 ---
Today's Communication / Plan
-
-Follow-up on cultures
-Needs short-term follow-up CT in about 8 weeks time to ensure resolution of infiltrate and normal underlying pulmonary parenchyma
Assessment
-
3-year-old female presents to the hospital with cough and fever. Patient reports that about 8 days ago she started developing nasal congestion with dark greenish discharge. She started treating it with sinus rinses and the drainage appeared to
somewhat clear and turned more yellowish. She also reports sinus pressure. Over next few days she started developing some cough with minimal expectoration. And over the last 3 days she developed a temperature as high as 103 degree. Patient is
immunocompromised with history of lymphoma in the past, currently on rituximab and hydroxychloroquine for rheumatoid arthritis. In the emergency room chest x-ray was negative for any definitive infiltrate but was noted to have leukopenia with
absolute neutrophil count of 0. She tested negative for COVID and influenza screen. She was admitted to the hospital, started on broad-spectrum antibiotics. Pulmonary consultation was requested for concern for pneumonia.
Assessment and plan:
#1. Neutropenic fever with RLL pneumonia, trace parapneumonia effusion
-Initial chest x-ray was unremarkable, follow-up CT chest suggestive of right lower lobe pneumonia
-Continue current antibiotics, follow-up on cultures, currently on cefepime and doxycycline
-Patient on Granix in view of neutropenia, gradually improving
-Cefepime and Doxycycline currently. Abx per ID service
-Expectoration is clear now, afebrile, no respiratory distress on exam
-Considering immunocompromise status, will get a short-term imaging in 6 to 8 weeks to ensure resolution
#2. AIDAN nodule, 6 mm. Incidentally noted on PET/CT
-Minimal FDG avidity, reportedly improving compared to prior scan
-Patient will need a 6-month follow-up CT or PET/CT for ongoing evaluation
-Will arrange follow-up with pulmonary clinic as outpatient
#3/ h/o non-Hodgkin lymphoma, 2005, in remission
-Recent PET/CT is unremarkable
-Current presentation does not appear to be related to active lymphoma
#4. h/o Rheumatoid arthritis
-Patient is on rituximab as well as oral hydroxychloroquine for rheumatoid arthritis
-No pulmonary manifestations of rheumatoid arthritis noted on imaging
Total time spent on this consultation/encounter _32__ minutes which includes review of history, physical exam, medications, laboratory data, personal review of imaging, extensive review of outpatient records, discussion with care team and
respiratory therapy.
DATA:
Chest CT 04/2024: 1. MODERATE to SEVERE RIGHT LOWER LOBE PNEUMONIA.
2. Mild subpleural subsegmental atelectasis and scarring in the basilar left lower lobe.
3. Minimal bilateral pleural effusions.
4. Mild cardiomegaly.
5. Moderate multilevel mid and lower thoracic discogenic degenerative disease.
CXR 04/2024: No infiltrates. Mild hyper inflation suggesting underlying COPD.
PET-CT 03/2024: There is no hypermetabolic lymphadenopathy, specifically no hypermetabolic left cervical lymph nodes or right inguinal lymph nodes.
There is a 6 mm nodule within the medial left upper lobe adjacent to the aorta which demonstrates mild FDG avidity with a max SUV of 2.4. This has decreased in activity from prior and may represent evolving infectious/inflammatory process although
follow-up CT chest is recommended to ensure resolution.
Subjective Data
-
Date of Service:
Date of Service: May 25, 2024
Subjective:
Patient comfortably lying in bed, in no acute distress. Cough improving, expectoration is clear now.
Review of Systems
Genitourinary: Other (All 14 systems reviewed and negative except as stated above in the history of present illness.)
Objective Data
Data Reviewed
Vital Signs / I&O / Oxygen:
Vital Signs
Temp Pulse Resp BP Pulse Ox
98.1 F 65 16 102/56 95
05/25/24 07:15 05/25/24 07:15 05/25/24 07:15 05/25/24 07:15 05/25/24 08:15
Intake and Output
05/24/24 05/25/24 05/26/24
06:59 06:59 06:59
Intake Total 2630 / 2630 2159 / 2159
Balance 2630 / 2630 2159 / 2159
SaO2 95
Nasal Cannula flow liters per 2
minute
Physical Exam
General: Comfortable
HEENT: Normocephalic
Cardiovascular: S1-S2
Respiratory: Clear, Crackles (Few inspiratory rales on the right side.) and Non-Labored Respirations
GI: Soft and Non Distended
Neurology: Awake and Alert
Labs/Micro/Reports
Lab Data
05/25/24 08:57
05/24/24 05:51
Microbiology
05/23/24 08:43 Blood/Venous Blood Culture - Preliminary
No Growth in 48 hours- Final report to follow
05/23/24 08:43 Blood/Venous Blood Culture - Preliminary
No Growth in 48 hours- Final report to follow
05/23/24 16:02 Nose MRSA Screen - Final
No Methicillin Resistant Staphylococcus aureus isolated.
05/24/24 13:12 Sputum Respiratory Culture - Final
05/24/24 13:12 Sputum Gram Stain - Final
05/23/24 08:43 Urine Urine Culture - Final
05/23/24 19:26 Urine Legionella Urinary Antigen - Final
Negative for Legionella pneumophila Serogroup 1 antigen.
A negative result does not rule out the possiblity of
Legionella infection due to other serogroups or species of
Legionella. Clinical correlation is recommended.
05/23/24 19:26 Urine Streptococcus pneumoniae Antigen (M - Final
Negative for Streptococcus pneumoniae antigen.
A negative result does not exclude infection with
Streptococcus pneumoniae. Clinical correlation is
recommended.
05/23/24 05:26 Nasal Swab Influenza Types A & B (JACOB) - Final
Negative for Influenza A & B, NAAT
Negative results must be combined with clinical observations
and patient history.
Nucleic Acid Amplification test (NAAT)performed on the
[employer] platform.
--- NOTE | 2024-05-25 14:40 | W.PN.ID1 ---
Date of Service
Date of Service: May 25, 2024
Today's Communication
Continue cefepime and doxycycline.
Assessment / Plan
# Neutropenic fever
# RLL PNA
# RA on rituxan (now once a year, last received 01/2024)
- COVID/flu neg
-Blood cx's neg to date.
- Urine Legionella, pneumococcal Ag negative (not sensitive tests)
- Chest CT moderate to severe RLL opacity
- sputum cx pending
-Continue cefepime, doxycycline (d2)
-Fever resolved
- Suspect Rituxan source of neutropenia as previous.
Await for bone marrow recovery with GCSF.
ANC 0 -> 200
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
Rheumatoid arthritis on Rituxan and hydroxychloroquine
Sjogren's
Non-Hodgkin's lymphoma s/p parotidectomy (in remission from 2003)
Aortic aneurysm
GERD
Anxiety
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
Urinary incontinence s/p bladder surgery with autograft 05/03/2024
R THR
Chief Complaint
-: Pneumonia and Other (Neutropenic fever)
Subjective / Review of Systems
Cough is better.
Vital Signs / Physical Exam
Vital Signs
Vital Signs
Temp Pulse Resp BP Pulse Ox
98.1 F 65 16 102/56 95
05/25/24 07:15 05/25/24 07:15 05/25/24 07:15 05/25/24 07:15 05/25/24 08:15
Physical Exam
Constitutional: No Acute Distress
Eyes: No Conjunctival Hemorrhage and Sclera Anicteric
Cardiovascular: Regular Rate and S1/S2
Pulmonary: Rales (R>L base crackles)
Gastrointestinal: Soft, Non Tender, Non Distended and Normal Bowel Sounds
Genito-Urinary: Negative CVA Tenderness
Extremities: Negative Edema
Neurological: AO x 3
Objective Data
Lab Data
Lab Results
05/25/24 08:57
05/24/24 05:51
Estimated Creat Clear 74 ml/min 05/24/24 05:51
Total Bilirubin 0.9 mg/dl (0.2-1.3) 05/23/24 07:31
AST 27 U/L (14-36) 05/23/24 07:31
ALT 21 U/L (0-35) 05/23/24 07:31
Alkaline Phosphatase 75 U/L (38-126) 05/23/24 07:31
Most recent labs reviewed.
Micro Results:
05/23/24 08:43 Blood Culture - Preliminary
Blood/Venous No Growth in 48 hours- Final report to follow
05/23/24 08:43 Blood Culture - Preliminary
Blood/Venous No Growth in 48 hours- Final report to follow
05/23/24 16:02 MRSA Screen - Final
Nose No Methicillin Resistant Staphylococcus aureus isolated.
05/24/24 13:12 Respiratory Culture - Final
Sputum Gram Stain - Final
05/24/24 13:12 Respiratory Culture - Pending
Sputum Gram Stain - Pending
05/23/24 08:43 Urine Culture - Final
Urine
05/23/24 19:26 Legionella Urinary Antigen - Final
Urine Negative for Legionella pneumophila Serogroup 1 antigen.
A negative result does not rule out the possiblity of
Legionella infection due to other serogroups or species of
Legionella. Clinical correlation is recommended.
Streptococcus pneumoniae Antigen (M - Final
Negative for Streptococcus pneumoniae antigen.
A negative result does not exclude infection with
Streptococcus pneumoniae. Clinical correlation is
recommended.
05/23/24 05:26 Influenza Types A & B (JACOB) - Final
Nasal Swab Negative for Influenza A & B, NAAT
Negative results must be combined with clinical observations
and patient history.
Nucleic Acid Amplification test (NAAT)performed on the
[employer] platform.
05/24/[address]: MODERATE to SEVERE RIGHT LOWER LOBE PNEUMONIA.
05/23/24 CXR: Hyperaeration suggests a component of COPD
[2024-05-25 15:15] VITALS: BP 97/62
[2024-05-25] MEDS: PLAQUENIL PO (20:55)
[2024-05-25] MEDS: ZOLOFT PO ×2 (20:59)
[2024-05-25] MEDS: RESTASIS 0.05% OPHTHALMIC EMULSION BOTH EYES (20:59)
--- NOTE | 2024-05-25 21:19 | PTCARENOTE ---
05/25: pt reports taking her home medication brought in by a friend. Sertraline in prescription bottles. Medication taken and sent to pharmacy to verify. Tay Jacobo notified.
[2024-05-25] MEDS: ZOFRAN 4 MG IV (21:47)
[2024-05-25 23:52] VITALS: BP 96/50
[2024-05-26] MEDS: TYLENOL 1000 MG PO ×2 (02:26→20:23)
[2024-05-26] MEDS: ROBITUSSIN AC 10 ML PO ×3 (02:26→23:28)
[2024-05-26] MEDS: MAXIPIME 2000 MG IV ×3 (06:10→21:41)
[2024-05-26] MEDS: STERILE WATER FOR INJECTION 10 ML IV ×3 (06:10→21:40)
[2024-05-26 07:25] VITALS: BP 96/53
[2024-05-26] MEDS: NON-FORMULARY ITEM 30 MG PO ×3 (07:58→20:09)
--- NOTE | 2024-05-26 08:53 | W.PN.ONC2 ---
Today's Communication / Plan
-
.
Impression
Impression
Febrile Neutropenia -ANC 200, last temp 05/23 102.5F
neutropenia likely drug induced vs infection induced
RLL PNA
normocytic anemia, stable since labs June 2023. reports hx AJ unknown etiology, takes ferrous sulfate at home.
H/o Non-Hodgkin Lymphoma last Rituxan January 2024. PET Mar 2024 ZEKE
Sjogren's/RA/lupus on hydroxychloroquine and cevimeline
s/p bladder surgery with autograft 05/03/2024
AIDAN nodule incidental finding on PET Mar 2024
Plan
Plan
follow cultures, fever curve, abx per ID
pulmonary planning CT in about 8 weeks
GCSF daily
check iron studies, B12, folate. Would avoid parental iron with acute infection if iron deficency is noted.
OP follow up with primary oncologist at [facility]
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
Subjective/Objective
Subjective
no new complaints
Vital Signs:
Vital Signs
Temp Pulse Resp BP Pulse Ox
97.8 F 55 16 96/53 96
05/26/24 07:25 05/26/24 07:25 05/26/24 07:25 05/26/24 07:25 05/26/24 07:25
Lab Results:
Laboratory Data
WBC 2.7 10^3/uL (4.8-10.8) L 05/25/24 08:57
Hgb 10.1 g/dL (12.0-16.0) L 05/25/24 08:57
Plt Count 166 10^3/uL (130-400) 05/25/24 08:57
eGFR > 60.00 05/24/24 05:51
[2024-05-26] MEDS: VIBRAMYCIN 100 MG PO ×2 (09:04→20:04)
[2024-05-26] MEDS: GRANIX 300 MCG SC (09:04)
[2024-05-26] MEDS: TESSALON PERLES 200 MG PO ×2 (09:04→20:04)
[2024-05-26] MEDS: RESTASIS 0.05% OPHTHALMIC EMULSION 1 DROPS BOTH EYES ×2 (09:04→20:09)
[2024-05-26] MEDS: HEPARIN 5000 UNITS SC ×2 (09:04→20:05)
[2024-05-26] MEDS: FOLVITE 1 MG PO (09:04)
[2024-05-26] MEDS: PLAQUENIL PO ×2 (09:05→20:09)
--- NOTE | 2024-05-26 09:28 | W.PN.HOSP.TC ---
Today's Communication/Plan
-
c/w antibiotics
CBC with Diff in am
BMP in AM
likely discharge on the weekend.
Assessment / Plan
Assessment / Plan
Physical Exam
General: No Apparent Distress and Comfortable
HEENT: Moist mucous membranes and Atraumatic
Respiratory: much better, no Rales ( no wheezes)
Cardiac: S1/S2 and Regular Rhythm
GI: Soft and Non Tender
Rectal: No Maroon Stools
Genito-urinary: No No costovertebral tender or Bo
Musculoskeletal: No Cyanosis and No Edema
Skin: No Jaundice
Neuro: AO x 3 and Nonfocal/grossly intact
Psych: Calm and Intact Judgment/Insight
63 years old female presented with fever and cough
#Neutropenic fever
No fever in last 48 hours
Neutropenic precaution
negative Blood cultures x 2
MRSA screen is negative
Urine culture is negative
Urine for Legionella and strep Ag. Negative
Tylenol for fever
Mucinex for cough
Continue with the broad-spectrum antibiotic IV cefepime and IV vancomycin
Consulted ID and oncology
# Neutropenia
Given SQ Granix day # 4
# Community-acquired pneumonia, right sided PNA
Same cough, c/w oral Tessalon
hypoxia with cough
Lung exam improved.
Positive sick contact
Negative COVID and influenza screen
c/woxygen supplementation
s/p IV antibiotics, Doxy, Vancomycin & Cefepime. now on Doxy and cefepime
Does not take inhalers at home
# Mild hyponatremia, improved.
# Nausea, PRN Zofran given
No abdominal pain
# Chronic Hypotension, per records back to 2021. Patient denies weakness or dizziness
d/w daughter also, pt runs low with no symptoms.
As needed midodrine only for SBP lower than 80
Patient is not toxic appearing
# History of generalized anxiety disorder/panic attacks.
continue with sertraline, she brought home medications.
Mood is a pleasant and cooperative
# History of Sjogren disease /rheumatoid arthritis
# History of non-Hodgkin's lymphoma. Currently not on treatment.
#Chronic urinary incontinence status post bladder surgery 4 weeks ago in [facility]
Total time spent to see the patient, examine the patient, review data and lab results, discuss treatment plan with patient, consultants, nursing staff around 55 minutes
Anticipated Discharge: > 48 hours
Subjective/Interval History
-
Date of Service: May 26, 2024
No fevers
No sob
No chest pain
Objective Data
-
Vital Signs:
Vital Signs
Temp Pulse Resp BP Pulse Ox
97.8 F 55 16 96/53 96
05/26/24 07:25 05/26/24 07:25 05/26/24 07:25 05/26/24 07:25 05/26/24 07:25
I&O
05/25/24 05/26/24 05/27/24
06:59 06:59 06:59
Intake Total 2160 / 2160 2205 / 2205
Balance 2160 / 2160 2205 / 2205
--- NOTE | 2024-05-26 10:47 | W.PN.ID1 ---
Date of Service
Date of Service: May 26, 2024
Today's Communication
Continue cefepime, doxycycline.
Assessment / Plan
# Neutropenic fever
# RLL PNA
# RA on rituxan (now once a year, last received 01/2024)
- COVID/flu neg
-Blood cx's neg to date.
- Urine Legionella, pneumococcal Ag negative (not sensitive tests)
- Chest CT moderate to severe RLL opacity
- sputum cx pending
-Continue cefepime, doxycycline (d3)
-Fever resolved
- Suspect Rituxan source of neutropenia as previous.
Await for bone marrow recovery with GCSF.
ANC 0 -> 200
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
Rheumatoid arthritis on Rituxan and hydroxychloroquine
Sjogren's
Non-Hodgkin's lymphoma s/p parotidectomy (in remission from 2003)
Aortic aneurysm
GERD
Anxiety
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
Urinary incontinence s/p bladder surgery with autograft 05/03/2024
R THR
Chief Complaint
-: Pneumonia and Other (Neutropenic fever)
Subjective / Review of Systems
Feeling better.
Vital Signs / Physical Exam
Vital Signs
Vital Signs
Temp Pulse Resp BP Pulse Ox
97.8 F 55 16 96/53 96
05/26/24 07:25 05/26/24 07:25 05/26/24 07:25 05/26/24 07:25 05/26/24 07:25
Physical Exam
Constitutional: No Acute Distress
Eyes: No Conjunctival Hemorrhage and Sclera Anicteric
Cardiovascular: Regular Rate and S1/S2
Pulmonary: Rales (Right base crackles decreased/minimal)
Gastrointestinal: Soft, Non Tender, Non Distended and Normal Bowel Sounds
Genito-Urinary: Negative CVA Tenderness
Extremities: Negative Edema
Neurological: AO x 3
Objective Data
Lab Data
Lab Results
05/25/24 08:57
05/24/24 05:51
Estimated Creat Clear 74 ml/min 05/24/24 05:51
Total Bilirubin 0.9 mg/dl (0.2-1.3) 05/23/24 07:31
AST 27 U/L (14-36) 05/23/24 07:31
ALT 21 U/L (0-35) 05/23/24 07:31
Alkaline Phosphatase 75 U/L (38-126) 05/23/24 07:31
Most recent labs reviewed.
Micro Results:
05/23/24 08:43 Blood Culture - Preliminary
Blood/Venous No Growth in 72 hours- Final report to follow
05/23/24 08:43 Blood Culture - Preliminary
Blood/Venous No Growth in 72 hours- Final report to follow
05/23/24 16:02 MRSA Screen - Final
Nose No Methicillin Resistant Staphylococcus aureus isolated.
05/24/24 13:12 Respiratory Culture - Final
Sputum Gram Stain - Final
05/24/24 13:12 Respiratory Culture - Pending
Sputum Gram Stain - Pending
05/23/24 08:43 Urine Culture - Final
Urine
05/23/24 19:26 Legionella Urinary Antigen - Final
Urine Negative for Legionella pneumophila Serogroup 1 antigen.
A negative result does not rule out the possiblity of
Legionella infection due to other serogroups or species of
Legionella. Clinical correlation is recommended.
Streptococcus pneumoniae Antigen (M - Final
Negative for Streptococcus pneumoniae antigen.
A negative result does not exclude infection with
Streptococcus pneumoniae. Clinical correlation is
recommended.
05/23/24 05:26 Influenza Types A & B (JACOB) - Final
Nasal Swab Negative for Influenza A & B, NAAT
Negative results must be combined with clinical observations
and patient history.
Nucleic Acid Amplification test (NAAT)performed on the
[employer] platform.
05/24/[address]: MODERATE to SEVERE RIGHT LOWER LOBE PNEUMONIA.
05/23/24 CXR: Hyperaeration suggests a component of COPD
--- NOTE | 2024-05-26 11:17 | PTCARENOTE ---
pt receiving prn Robitussin for frequent cough with her morning medications. pt taken off O2 and has been walking around in room independently. does not verbalize any shortness of breath.
[2024-05-26 11:59] LABS: Reticulocyte Count 0.9 % (0.4-2.8)
--- NOTE | 2024-05-26 12:04 | W.PN.PUL3 ---
Today's Communication / Plan
-
- Continue current antibiotics
- Follow-up on cultures
-Outpatient follow-up with pulmonary clinic for repeat imaging in 6 to 8 weeks
Assessment
-
3-year-old female presents to the hospital with cough and fever. Patient reports that about 8 days ago she started developing nasal congestion with dark greenish discharge. She started treating it with sinus rinses and the drainage appeared to
somewhat clear and turned more yellowish. She also reports sinus pressure. Over next few days she started developing some cough with minimal expectoration. And over the last 3 days she developed a temperature as high as 103 degree. Patient is
immunocompromised with history of lymphoma in the past, currently on rituximab and hydroxychloroquine for rheumatoid arthritis. In the emergency room chest x-ray was negative for any definitive infiltrate but was noted to have leukopenia with
absolute neutrophil count of 0. She tested negative for COVID and influenza screen. She was admitted to the hospital, started on broad-spectrum antibiotics. Pulmonary consultation was requested for concern for pneumonia.
Assessment and plan:
#1. Neutropenic fever with RLL pneumonia, trace parapneumonia effusion
-Initial chest x-ray was unremarkable, follow-up CT chest suggestive of right lower lobe pneumonia
-Continue current antibiotics, follow-up on cultures, currently on cefepime and doxycycline
-Patient on Granix in view of neutropenia, gradually improving
-Cefepime and Doxycycline currently. Abx per ID service
-Expectoration is clear now, afebrile, no respiratory distress on exam
-Considering immunocompromise status, will get a short-term imaging in 6 to 8 weeks to ensure resolution
#2. AIDAN nodule, 6 mm. Incidentally noted on PET/CT
-Minimal FDG avidity, reportedly improving compared to prior scan
-Patient will need a 6-month follow-up CT or PET/CT for ongoing evaluation
-Will arrange follow-up with pulmonary clinic as outpatient
#3/ h/o non-Hodgkin lymphoma, 2005, in remission
-Recent PET/CT is unremarkable
-Current presentation does not appear to be related to active lymphoma
#4. h/o Rheumatoid arthritis
-Patient is on rituximab as well as oral hydroxychloroquine for rheumatoid arthritis
-No pulmonary manifestations of rheumatoid arthritis noted on imaging
Total time spent on this consultation/encounter _30__ minutes which includes review of history, physical exam, medications, laboratory data, personal review of imaging, extensive review of outpatient records, discussion with care team and
respiratory therapy.
DATA:
Chest CT 04/2024: 1. MODERATE to SEVERE RIGHT LOWER LOBE PNEUMONIA.
2. Mild subpleural subsegmental atelectasis and scarring in the basilar left lower lobe.
3. Minimal bilateral pleural effusions.
4. Mild cardiomegaly.
5. Moderate multilevel mid and lower thoracic discogenic degenerative disease.
CXR 04/2024: No infiltrates. Mild hyper inflation suggesting underlying COPD.
PET-CT 03/2024: There is no hypermetabolic lymphadenopathy, specifically no hypermetabolic left cervical lymph nodes or right inguinal lymph nodes.
There is a 6 mm nodule within the medial left upper lobe adjacent to the aorta which demonstrates mild FDG avidity with a max SUV of 2.4. This has decreased in activity from prior and may represent evolving infectious/inflammatory process although
follow-up CT chest is recommended to ensure resolution.
Subjective Data
-
Date of Service:
Date of Service: May 26, 2024
Subjective:
Comfortably lying in bed, no acute distress. Reports improving cough, clear expectoration.
Review of Systems
Genitourinary: Other (All 14 systems reviewed and negative except as stated above in the history of present illness.)
Objective Data
Data Reviewed
Vital Signs / I&O / Oxygen:
Vital Signs
Temp Pulse Resp BP Pulse Ox
97.8 F 55 16 96/53 97
05/26/24 07:25 05/26/24 07:25 05/26/24 07:25 05/26/24 07:25 05/26/24 10:50
Intake and Output
05/25/24 05/26/24 05/27/24
06:59 06:59 06:59
Intake Total 2160 / 2160 2204 / 2204
Balance 2160 / 2160 2204 / 2204
SaO2 97
Nasal Cannula flow liters per 1
minute
Physical Exam
General: Comfortable
HEENT: Normocephalic
Cardiovascular: S1-S2
Respiratory: Clear, Crackles (Few inspiratory rales on the right side.) and Non-Labored Respirations
GI: Soft and Non Distended
Neurology: Awake and Alert
Labs/Micro/Reports
Lab Data
05/25/24 08:57
05/24/24 05:51
Microbiology
05/23/24 08:43 Blood/Venous Blood Culture - Preliminary
No Growth in 72 hours- Final report to follow
05/23/24 08:43 Blood/Venous Blood Culture - Preliminary
No Growth in 72 hours- Final report to follow
05/23/24 16:02 Nose MRSA Screen - Final
No Methicillin Resistant Staphylococcus aureus isolated.
05/24/24 13:12 Sputum Respiratory Culture - Final
05/24/24 13:12 Sputum Gram Stain - Final
05/23/24 08:43 Urine Urine Culture - Final
05/23/24 19:26 Urine Legionella Urinary Antigen - Final
Negative for Legionella pneumophila Serogroup 1 antigen.
A negative result does not rule out the possiblity of
Legionella infection due to other serogroups or species of
Legionella. Clinical correlation is recommended.
05/23/24 19:26 Urine Streptococcus pneumoniae Antigen (M - Final
Negative for Streptococcus pneumoniae antigen.
A negative result does not exclude infection with
Streptococcus pneumoniae. Clinical correlation is
recommended.
[2024-05-26 12:51] LABS: Iron 77 ug/dl (37-170)
[2024-05-26 13:05] LABS: Percent Saturation 38 % (20-50); Total Iron Binding Capacity 201 ug/dl (265-497)
[2024-05-26 13:59] LABS: Folate > 20.0 ng/ml (2.76-20); Vitamin B12 > 1000 pg/ml (239-931)
[2024-05-26 15:45] VITALS: BP 97/60
[2024-05-26] MEDS: NON-FORMULARY ITEM 1 UNIT PO ×2 (20:06→20:07)
[2024-05-26] MEDS: ZOFRAN 4 MG IV (20:23)
[2024-05-26] MEDS: ANESTHETIC LOZENGE 1 LOZENGE PO (20:23)
[2024-05-26 23:12] VITALS: BP 102/65
[2024-05-27] MEDS: MAXIPIME 2000 MG IV ×3 (06:19→22:12)
[2024-05-27] MEDS: STERILE WATER FOR INJECTION 10 ML IV ×3 (06:19→22:12)
[2024-05-27] MEDS: NON-FORMULARY ITEM 30 MG PO ×3 (06:20→20:07)
--- NOTE | 2024-05-27 07:12 | W.PN.HOSP.TC ---
Today's Communication/Plan
-
Hold Granix
c/w antibiotics
Dulcolax, PRN MiraLAX
Nasal spray
Mucinex
Assessment / Plan
Assessment / Plan
Physical Exam
General: No Apparent Distress and Comfortable
HEENT: Moist mucous membranes and Atraumatic
Respiratory: much better, mild rales at bases ( no wheezes)
Cardiac: S1/S2 and Regular Rhythm
GI: Soft and Non Tender
Rectal: No Maroon Stools
Genito-urinary: No No costovertebral tender or Bo
Musculoskeletal: No Cyanosis and No Edema
Skin: No Jaundice
Neuro: AO x 3 and Nonfocal/grossly intact
Psych: Calm and Intact Judgment/Insight
63 years old female presented with fever and cough
#Neutropenic fever, resolved
Neutropenic precaution
negative Blood cultures x 2
MRSA screen is negative
Urine culture is negative
Urine for Legionella and strep Ag. Negative
S/P IV cefepime and IV vancomycin
Consulted ID and oncology
# Neutropenia
Given SQ Granix, 4 doses given. Hold it while WBC is 28 now.
# Community-acquired pneumonia, right sided PNA
c/w oral Tessalon
hypoxia only with cough
Lung exam improved.
Positive sick contact
Negative COVID and influenza screen
c/w oxygen supplementation
s/p IV antibiotics, Doxy, Vancomycin & Cefepime. now on Doxy and cefepime
Does not take inhalers at home
Nasal [place]
# constipation
Oral Dulcolax and PRN MiraLAX
# Mild hyponatremia, improved.
# Nausea, PRN Zofran given
No abdominal pain
# Chronic Hypotension, per records back to 2021. Patient denies weakness or dizziness
d/w daughter also, pt runs low with no symptoms.
As needed midodrine only for SBP lower than 80
Patient is not toxic appearing
# History of generalized anxiety disorder/panic attacks.
continue with sertraline, she brought home medications.
Mood is a pleasant and cooperative
# History of Sjogren disease /rheumatoid arthritis
# History of non-Hodgkin's lymphoma. Currently not on treatment.
#Chronic urinary incontinence status post bladder surgery 4 weeks ago in [facility]
Total time spent to see the patient, examine the patient, review data and lab results, discuss treatment plan with patient, consultants, nursing staff around 55 minutes
Anticipated Discharge: 24 - 48 hours
Subjective/Interval History
-
Date of Service: May 27, 2024
Complains of dry nose and constipation
Objective Data
-
Labs:
Laboratory Results
05/27/24
06:40
WBC Pending
Hgb Pending
Hct Pending
Plt Count Pending
Sodium Pending
Potassium Pending
Chloride Pending
Carbon Dioxide Pending
BUN Pending
Creatinine Pending
Glucose Pending
Calcium Pending
Vital Signs:
Vital Signs
Temp Pulse Resp BP Pulse Ox
98.8 F 83 16 102/65 93
05/26/24 23:12 05/26/24 23:12 05/26/24 23:12 05/26/24 23:12 05/26/24 23:12
I&O
05/26/24 05/27/24 05/28/24
06:59 06:59 06:59
Intake Total 2204
Balance 2204
[2024-05-27 07:15] VITALS: BP 101/56
[2024-05-27 07:34] LABS: Hematocrit 28.9 % (37.0-47.0); Hemoglobin 10.1 g/dL (12.0-16.0); Mean Corp Hgb Conc. 34.9 g/dL (33.0-37.0); Mean Corpuscular Hgb 30.1 pg (27.0-31.0); Mean Platelet Volume 9.6 fL (7.4-10.4); Platelet Count 217 10^3/uL (130-400); Red Blood Cell Count 3.36 10^6/uL (4.20-5.40); Red Cell Dist. Width 13.9 % (11.5-14.5); White Blood Cell Count 28.5 10^3/uL (4.8-10.8)
[2024-05-27 07:41] LABS: Blood Urea Nitrogen 8 mg/dl (7-17); Calcium 8.8 mg/dl (8.4-10.2); Carbon Dioxide 28 mmol/L (22-30); Chloride 108 mmol/L (98-107); Estimated Creatinine Clearance 74 ml/min; Glucose 100 mg/dl (70-99); Potassium 3.3 mmol/L (3.5-5.1); Sodium 142 mmol/L (135-145); eGFR > 60.00
--- NOTE | 2024-05-27 08:18 | W.PN.ONC2 ---
Today's Communication / Plan
-
.
Impression
Impression
Febrile Neutropenia -ANC pending though suspect will be normal with WBC rising to ~28k, last temp 05/23 102.5F
neutropenia likely drug induced vs infection induced
RLL PNA
normocytic anemia, stable since labs June 2023. reports hx AJ unknown etiology, takes ferrous sulfate at home.
H/o Non-Hodgkin Lymphoma last Rituxan January 2024. PET Mar 2024 ZEKE
Sjogren's/RA/lupus on hydroxychloroquine and cevimeline
s/p bladder surgery with autograft 05/03/2024
AIDAN nodule incidental finding on PET Mar 2024
Plan
Plan
follow cultures, fever curve, abx per ID
pulmonary planning CT in about 8 weeks
could consider claritin 10mg daily x 5 days if having bony pain from GCSF
no iron studies, B12, folate deficiency
OP follow up with primary oncologist at [facility]
OP follow up with manager product support
If ANC >1500, no need for further GCSF, No hematologic barriers for discharge, and Hematology will sign off. Please reach out for any further questions or concerns.
Subjective/Objective
Subjective
no new complaints
WBC 28.5, ANC pending
Vital Signs:
Vital Signs
Temp Pulse Resp BP Pulse Ox
98.1 F 60 15 101/56 91
05/27/24 07:15 05/27/24 07:15 05/27/24 07:15 05/27/24 07:15 05/27/24 07:15
Lab Results:
Laboratory Data
WBC 28.5 10^3/uL (4.8-10.8) H 05/27/24 06:40
Hgb 10.1 g/dL (12.0-16.0) L 05/27/24 06:40
Plt Count 217 10^3/uL (130-400) D 05/27/24 06:40
eGFR > 60.00 05/27/24 06:40
Orders
Orders
Orders From Last 24 Hours
05/26/24 10:43
Add On- LAB Routine
[2024-05-27] MEDS: MUCINEX 600 MG PO ×2 (08:32→20:08)
[2024-05-27] MEDS: MIRALAX 17 GRAMS PO (08:32)
[2024-05-27] MEDS: TESSALON PERLES 200 MG PO ×2 (08:32→20:08)
[2024-05-27] MEDS: DULCOLAX 10 MG PO (08:32)
[2024-05-27] MEDS: VIBRAMYCIN 100 MG PO ×2 (08:32→20:08)
[2024-05-27] MEDS: AYR SALINE NASAL GEL 1 APPLIC NASAL (08:32)
[2024-05-27] MEDS: RESTASIS 0.05% OPHTHALMIC EMULSION 1 DROPS BOTH EYES ×2 (08:32→20:08)
[2024-05-27] MEDS: FOLVITE 1 MG PO (08:33)
[2024-05-27] MEDS: PLAQUENIL PO ×2 (08:33→20:11)
[2024-05-27] MEDS: HEPARIN 5000 UNITS SC ×2 (08:33→20:10)
[2024-05-27] MEDS: GRANIX SC (08:44)
[2024-05-27 09:10] LABS: Absolute Neutrophils -Man Diff 22.5 10^3/uL (1.4-6.5); Band Neutrophils 11 % (0-3); Eosinophils 2 % (0-6); Lymphocytes 8 % (20-51); Metamyelocytes 2 % (-); Monocytes 7 % (2-9); Myelocytes 2 % (-); Segmented Neutrophils 68 % (42-75)
[2024-05-27 09:11] LABS: Normal RBC Morphology Yes; Platelets Checked Yes; Total Cells Counted 100
--- NOTE | 2024-05-27 10:14 | PTCARENOTE ---
pt with nasal discomfort due to dryness and no bm since 05/25. miralax and dulcolax given, ayr nasal gel added and pt used at bedside. pt no longer on neutropenic precautions.
--- NOTE | 2024-05-27 11:15 | W.PN.ID1 ---
Date of Service
Date of Service: May 27, 2024
Today's Communication
- Can transition cefepime (d5) to Augmentin 875m po bid through 06/02/24.
- Continue doxycycline 100mg po bid (d5) through 06/02/24
- Can dc home from ID standpoint.
Assessment / Plan
# Neutropenic fever - resolved
# RLL PNA
# RA on rituxan (now once a year, last received 01/2024)
- COVID/flu neg
-Blood cx's neg to date.
- Urine Legionella, pneumococcal Ag negative (not sensitive tests)
- Chest CT moderate to severe RLL opacity
- sputum cx not acceptable specimen
-Fever resolved
- Neutropenia resolved with GCSF
- Suspect Rituxan source of neutropenia as previous.
- Can transition cefepime (d5) to Augmentin 875m po bid through 06/02/24.
- Continue doxycycline 100mg po bid (d5) through 06/02/24
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
Rheumatoid arthritis on Rituxan and hydroxychloroquine
Sjogren's
Non-Hodgkin's lymphoma s/p parotidectomy (in remission from 2003)
Aortic aneurysm
GERD
Anxiety
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
Urinary incontinence s/p bladder surgery with autograft 05/03/2024
R THR
Chief Complaint
-: Pneumonia and Other (Neutropenic fever)
Subjective / Review of Systems
Feeling improved overall.
Vital Signs / Physical Exam
Vital Signs
Vital Signs
Temp Pulse Resp BP Pulse Ox
98.1 F 60 15 101/56 92
05/27/24 07:15 05/27/24 07:15 05/27/24 07:15 05/27/24 07:15 05/27/24 09:38
Physical Exam
Constitutional: No Acute Distress and Comfortable
Cardiovascular: Regular Rate and S1/S2
Pulmonary: Rales (Right base crackles)
Gastrointestinal: Soft, Non Tender, Non Distended and Normal Bowel Sounds
Extremities: Negative Edema
Neurological: AO x 3
Objective Data
Lab Data
Lab Results
05/27/24 06:40
05/27/24 06:40
Estimated Creat Clear 74 ml/min 05/27/24 06:40
Total Bilirubin 0.9 mg/dl (0.2-1.3) 05/23/24 07:31
AST 27 U/L (14-36) 05/23/24 07:31
ALT 21 U/L (0-35) 05/23/24 07:31
Alkaline Phosphatase 75 U/L (38-126) 05/23/24 07:31
Most recent labs reviewed.
Micro Results:
05/23/24 08:43 Blood Culture - Preliminary
Blood/Venous No Growth in 4 days- Final report to follow
05/23/24 08:43 Blood Culture - Preliminary
Blood/Venous No Growth in 4 days- Final report to follow
05/23/24 16:02 MRSA Screen - Final
Nose No Methicillin Resistant Staphylococcus aureus isolated.
05/24/24 13:12 Respiratory Culture - Final
Sputum Gram Stain - Final
05/23/24 08:43 Urine Culture - Final
Urine
05/23/24 19:26 Legionella Urinary Antigen - Final
Urine Negative for Legionella pneumophila Serogroup 1 antigen.
A negative result does not rule out the possiblity of
Legionella infection due to other serogroups or species of
Legionella. Clinical correlation is recommended.
Streptococcus pneumoniae Antigen (M - Final
Negative for Streptococcus pneumoniae antigen.
A negative result does not exclude infection with
Streptococcus pneumoniae. Clinical correlation is
recommended.
05/23/24 05:26 Influenza Types A & B (JACOB) - Final
Nasal Swab Negative for Influenza A & B, NAAT
Negative results must be combined with clinical observations
and patient history.
Nucleic Acid Amplification test (NAAT)performed on the
[employer] platform.
05/24/[address]: MODERATE to SEVERE RIGHT LOWER LOBE PNEUMONIA.
05/23/24 CXR: Hyperaeration suggests a component of COPD
Care Review
Plan reviewed with: Physician (Dr. Jiménez)
--- NOTE | 2024-05-27 14:24 | W.PN.PUL3 ---
Today's Communication / Plan
-
-Pulmonary team will sign off. Please call as needed
-Out patient follow up with Pulmonary Clinic for repeat imaging in 6 weeks time.
Assessment
-
3-year-old female presents to the hospital with cough and fever. Patient reports that about 8 days ago she started developing nasal congestion with dark greenish discharge. She started treating it with sinus rinses and the drainage appeared to
somewhat clear and turned more yellowish. She also reports sinus pressure. Over next few days she started developing some cough with minimal expectoration. And over the last 3 days she developed a temperature as high as 103 degree. Patient is
immunocompromised with history of lymphoma in the past, currently on rituximab and hydroxychloroquine for rheumatoid arthritis. In the emergency room chest x-ray was negative for any definitive infiltrate but was noted to have leukopenia with
absolute neutrophil count of 0. She tested negative for COVID and influenza screen. She was admitted to the hospital, started on broad-spectrum antibiotics. Pulmonary consultation was requested for concern for pneumonia.
Assessment and plan:
#1. Neutropenic fever with RLL pneumonia, trace parapneumonia effusion
-Initial chest x-ray was unremarkable, follow-up CT chest suggestive of right lower lobe pneumonia
-Antibiotics per ID, being transitioned to Augmentin and Doxycycline thru 06/02.
-Patient received Granix in view of neutropenia, resolved
-Expectoration is clear now, afebrile, no respiratory distress on exam
-Considering immunocompromise status, will get a short-term imaging in 6 to 8 weeks to ensure resolution. Updated patient regarding need for out patient follow up with Pulm clinic. information added in the discharge section.
#2. AIDAN nodule, 6 mm. Incidentally noted on PET/CT
-Minimal FDG avidity, reportedly improving compared to prior scan
-Patient will need a 6-month follow-up CT or PET/CT for ongoing evaluation
-Will arrange follow-up with pulmonary clinic as outpatient
#3/ h/o non-Hodgkin lymphoma, 2006, in remission
-Recent PET/CT is unremarkable
-Current presentation does not appear to be related to active lymphoma
#4. h/o Rheumatoid arthritis
-Patient is on rituximab as well as oral hydroxychloroquine for rheumatoid arthritis
-No pulmonary manifestations of rheumatoid arthritis noted on imaging
Total time spent on this consultation/encounter _30__ minutes which includes review of history, physical exam, medications, laboratory data, personal review of imaging, extensive review of outpatient records, discussion with care team and
respiratory therapy.
DATA:
Chest CT 04/2024: 1. MODERATE to SEVERE RIGHT LOWER LOBE PNEUMONIA.
2. Mild subpleural subsegmental atelectasis and scarring in the basilar left lower lobe.
3. Minimal bilateral pleural effusions.
4. Mild cardiomegaly.
5. Moderate multilevel mid and lower thoracic discogenic degenerative disease.
CXR 04/2024: No infiltrates. Mild hyper inflation suggesting underlying COPD.
PET-CT 03/2024: There is no hypermetabolic lymphadenopathy, specifically no hypermetabolic left cervical lymph nodes or right inguinal lymph nodes.
There is a 6 mm nodule within the medial left upper lobe adjacent to the aorta which demonstrates mild FDG avidity with a max SUV of 2.4. This has decreased in activity from prior and may represent evolving infectious/inflammatory process although
follow-up CT chest is recommended to ensure resolution.
Subjective Data
-
Date of Service:
Date of Service: May 27, 2024
Subjective:
Comfortably sitting in bed. No new complaints.
Review of Systems
Genitourinary: Other (Negative )
Objective Data
Data Reviewed
Vital Signs / I&O / Oxygen:
Vital Signs
Temp Pulse Resp BP Pulse Ox
98.1 F 60 15 101/56 92
05/27/24 07:15 05/27/24 07:15 05/27/24 07:15 05/27/24 07:15 05/27/24 09:38
Intake and Output
05/26/24 05/27/24 05/28/24
06:59 06:59 06:59
Intake Total 2204 / 2159
Balance 2204 / 2159
SaO2 92
Nasal Cannula flow liters per 1
minute
Physical Exam
General: Comfortable
HEENT: Normocephalic
Cardiovascular: S1-S2
Respiratory: Clear, Crackles (Few inspiratory rales on the right side.) and Non-Labored Respirations
GI: Soft and Non Distended
Neurology: Awake and Alert
Labs/Micro/Reports
Lab Data
05/27/24 06:40
05/27/24 06:40
Microbiology
05/23/24 08:43 Blood/Venous Blood Culture - Preliminary
No Growth in 4 days- Final report to follow
05/23/24 08:43 Blood/Venous Blood Culture - Preliminary
No Growth in 4 days- Final report to follow
05/23/24 16:02 Nose MRSA Screen - Final
No Methicillin Resistant Staphylococcus aureus isolated.
05/24/24 13:12 Sputum Respiratory Culture - Final
05/24/24 13:12 Sputum Gram Stain - Final
05/23/24 08:43 Urine Urine Culture - Final
--- NOTE | 2024-05-27 14:32 | CM ---
Reviewed the chart notes and spoke with the patient at the bedside. IMM reviewed. Patient now on RA. CM continues to be available to patient/family and is monitoring medical plan for needs at discharge.
Plan: Discharge to home when medically stable. No needs anticipated.
[2024-05-27 15:15] VITALS: BP 114/67
[2024-05-27] MEDS: NON-FORMULARY ITEM 1 UNIT PO ×2 (20:10)
[2024-05-27] MEDS: ZOFRAN 4 MG IV (20:45)
[2024-05-27 23:20] VITALS: BP 128/64
[2024-05-27] MEDS: ROBITUSSIN AC 10 ML PO (23:31)
[2024-05-28] MEDS: ROBITUSSIN AC 10 ML PO (03:31)
[2024-05-28] MEDS: TYLENOL 1000 MG PO (04:45)
[2024-05-28] MEDS: MAXIPIME 2000 MG IV ×3 (05:37→21:54)
[2024-05-28] MEDS: STERILE WATER FOR INJECTION 10 ML IV ×3 (05:38→21:55)
[2024-05-28 07:15] VITALS: BP 121/62
[2024-05-28] MEDS: NON-FORMULARY ITEM 30 MG PO ×3 (08:21→20:41)
[2024-05-28] MEDS: TESSALON PERLES 200 MG PO ×2 (08:22→20:41)
[2024-05-28] MEDS: DULCOLAX 10 MG PO (08:22)
[2024-05-28] MEDS: HEPARIN 5000 UNITS SC ×2 (08:22→20:41)
[2024-05-28] MEDS: VIBRAMYCIN 100 MG PO ×2 (08:22→20:41)
[2024-05-28] MEDS: MUCINEX 600 MG PO ×2 (08:22→20:41)
[2024-05-28] MEDS: FOLVITE 1 MG PO (08:22)
[2024-05-28] MEDS: RESTASIS 0.05% OPHTHALMIC EMULSION 1 DROPS BOTH EYES ×2 (08:22→20:42)
[2024-05-28] MEDS: PLAQUENIL PO ×2 (08:42→20:46)
[2024-05-28] MEDS: ZOFRAN 4 MG IV ×2 (09:32→20:40)
--- NOTE | 2024-05-28 09:43 | W.PN.HOSP.TC ---
Today's Communication/Plan
-
Patient feels not ready to go home, she feels same cough, d/w her, will c/w IV antibiotic for another day
Assessment / Plan
Assessment / Plan
Physical Exam
General: No Apparent Distress and Comfortable
HEENT: Moist mucous membranes and Atraumatic
Respiratory: much better, mild rales at bases ( no wheezes)
Cardiac: S1/S2 and Regular Rhythm
GI: Soft and Non Tender
Rectal: No Maroon Stools
Genito-urinary: No No costovertebral tender or Bo
Musculoskeletal: No Cyanosis and No Edema
Skin: No Jaundice
Neuro: AO x 3 and Nonfocal/grossly intact
Psych: Calm and Intact Judgment/Insight
63 years old female presented with fever and cough
#Neutropenic fever, resolved
Neutropenic precaution
negative Blood cultures x 2
MRSA screen is negative
Urine culture is negative
Urine for Legionella and strep Ag. Negative
S/P IV cefepime and IV vancomycin
Consulted ID and oncology
# Neutropenia
Given SQ Granix, 4 doses given. Hold it while WBC is 28 now.
# Community-acquired pneumonia, right sided PNA
c/w oral Tessalon
hypoxia only with cough
Lung exam improved.
Positive sick contact
Negative COVID and influenza screen
c/w oxygen supplementation
s/p IV antibiotics, Doxy, Vancomycin & Cefepime. now on Doxy and cefepime
Does not take inhalers at home
Nasal [place]
# constipation
Oral Dulcolax and PRN MiraLAX
# Mild hyponatremia, improved.
# Nausea, PRN Zofran given
No abdominal pain
# Chronic Hypotension, per records back to 2021. Patient denies weakness or dizziness
d/w daughter also, pt runs low with no symptoms.
As needed midodrine only for SBP lower than 80
Patient is not toxic appearing
# History of generalized anxiety disorder/panic attacks.
continue with sertraline, she brought home medications.
Mood is a pleasant and cooperative
# History of Sjogren disease /rheumatoid arthritis
# History of non-Hodgkin's lymphoma. Currently not on treatment.
#Chronic urinary incontinence status post bladder surgery 4 weeks ago in [facility]
Total time spent to see the patient, examine the patient, review data and lab results, discuss treatment plan with patient, consultants, nursing staff around 55 minutes
Anticipated Discharge: Within 24 hours
Subjective/Interval History
-
Date of Service: May 28, 2024
No chest pain
No sob
She feels cough is same and does not want to go home yet
Objective Data
-
Vital Signs:
Vital Signs
Temp Pulse Resp BP Pulse Ox
98.1 F 57 18 121/62 93
05/28/24 07:15 05/28/24 07:15 05/28/24 07:15 05/28/24 07:15 05/28/24 07:15
I&O
05/27/24 05/28/24 05/29/24
06:59 06:59 06:59
Intake Total 2160 / 2160 1140 / 1140
Balance 2160 / 2160 1140 / 1140
[2024-05-28 11:15] LABS: Blood Urea Nitrogen 11 mg/dl (7-17); Carbon Dioxide 25 mmol/L (22-30); Chloride 108 mmol/L (98-107); Estimated Creatinine Clearance 74 ml/min; Glucose 107 mg/dl (70-99); Potassium 3.8 mmol/L (3.5-5.1); Sodium 141 mmol/L (135-145); eGFR > 60.00
--- NOTE | 2024-05-28 13:24 | CM ---
Patient stated to physician she does not feel well enough for discharge. CM will follow for discharge planning needs.
[2024-05-28 15:10] VITALS: BP 108/65
[2024-05-28] MEDS: AYR SALINE NASAL GEL 1 APPLIC NASAL (20:42)
[2024-05-28] MEDS: NON-FORMULARY ITEM 1 UNIT PO ×2 (20:43)
[2024-05-28 23:14] VITALS: BP 118/69
[2024-05-28] MEDS: PEPCID 20 MG PO (23:49)
[2024-05-29] MEDS: ROBITUSSIN AC 10 ML PO ×2 (01:08→11:05)
[2024-05-29] MEDS: STERILE WATER FOR INJECTION 10 ML IV (05:50)
[2024-05-29] MEDS: MAXIPIME 2000 MG IV (05:50)
[2024-05-29 07:15] VITALS: BP 103/72
[2024-05-29] MEDS: NON-FORMULARY ITEM 30 MG PO (08:18)
[2024-05-29] MEDS: MUCINEX 600 MG PO (08:20)
[2024-05-29] MEDS: DULCOLAX 10 MG PO (08:21)
[2024-05-29] MEDS: FOLVITE 1 MG PO (08:21)
[2024-05-29] MEDS: VIBRAMYCIN 100 MG PO (08:21)
[2024-05-29] MEDS: RESTASIS 0.05% OPHTHALMIC EMULSION 1 DROPS BOTH EYES (08:21)
[2024-05-29] MEDS: TESSALON PERLES 200 MG PO (08:21)
[2024-05-29] MEDS: PLAQUENIL PO (08:22)
[2024-05-29] MEDS: HEPARIN 5000 UNITS SC (08:22)
[2024-05-29] MEDS: ZOFRAN 4 MG IV (08:22)
--- NOTE | 2024-05-29 08:27 | W.PN.HOSP.TC ---
Today's Communication/Plan
-
dc
Assessment / Plan
Assessment / Plan
Physical Exam
General: No Apparent Distress and Comfortable
HEENT: Moist mucous membranes and Atraumatic
Respiratory: much better, mild rales at bases ( no wheezes)
Cardiac: S1/S2 and Regular Rhythm
GI: Soft and Non Tender
Rectal: No Maroon Stools
Genito-urinary: No No costovertebral tender or Bo
Musculoskeletal: No Cyanosis and No Edema
Skin: No Jaundice
Neuro: AO x 3 and Nonfocal/grossly intact
Psych: Calm and Intact Judgment/Insight
63 years old female presented with fever and cough
#Neutropenic fever, resolved
Neutropenic precaution
negative Blood cultures x 2
MRSA screen is negative
Urine culture is negative
Urine for Legionella and strep Ag. Negative
S/P IV cefepime and IV vancomycin
Consulted ID and oncology
# Neutropenia
Given SQ Granix, 4 doses given. Hold it while WBC is 28 now.
# Community-acquired pneumonia, right sided PNA
c/w oral Tessalon
hypoxia only with cough
Lung exam improved.
Positive sick contact
Negative COVID and influenza screen
s/p oxygen supplementation
s/p IV antibiotics, Doxy, Vancomycin & Cefepime. now on Doxy and cefepime
Does not take inhalers at home
Nasal [place]
# constipation
Oral Dulcolax and PRN MiraLAX
# Mild hyponatremia, improved.
# Nausea, PRN Zofran given
No abdominal pain
# Chronic Hypotension, per records back to 2021. Patient denies weakness or dizziness
d/w daughter also, pt runs low with no symptoms.
As needed midodrine only for SBP lower than 80
Patient is not toxic appearing
# History of generalized anxiety disorder/panic attacks.
continue with sertraline, she brought home medications.
Mood is a pleasant and cooperative
# History of Sjogren disease /rheumatoid arthritis
# History of non-Hodgkin's lymphoma. Currently not on treatment.
#Chronic urinary incontinence status post bladder surgery 4 weeks ago in [facility]
Total discharge time spent to see the patient, examine the patient, review data and lab results, discuss discharge plan with patient, nursing staff around 65 minutes
Anticipated Discharge: Today
Subjective/Interval History
-
Date of Service: May 29, 2024
No chest pain
No sob
Objective Data
-
Vital Signs:
Vital Signs
Temp Pulse Resp BP Pulse Ox
98.6 F 62 18 118/69 94
05/28/24 23:14 05/28/24 23:14 05/28/24 23:14 05/28/24 23:14 05/29/24 00:49
I&O
05/28/24 05/29/24 05/30/24
06:59 06:59 06:59
Intake Total 1140 / 1140 2280 / 2280
Balance 1140 / 1140 2280 / 2280
--- NOTE | 2024-05-29 08:42 | W.DCSUMMARY ---
Discharge Summary
Discharge Data
Date of Admission: 05/23/24
Date of Discharge: 05/29/24
-
Pending Results: No
Hospital Course
63 years old female presenting with cough and fever. Patient was diagnosed with community-acquired right-sided pneumonia. Patient was found to have neutropenia. She was diagnosed with neutropenic fever. Patient was admitted to the hospital. She
received broad-spectrum intravenous antibiotic. ID doctor followed the progress and maintained antibiotic treatment. She was seen by fiberglass roller. She was started on Granix. It was believed neutropenia was result of her immunotherapy for
rheumatoid arthritis. White blood cell count started to recover. Neutropenia resolved. She did not have recurrent fever. She was followed by pulmonary doctor. She had hypoxia on admission but later resolved. Pulmonary doctor recommended
outpatient follow-up. Patient was able to tolerate diet. She was given oral antibiotic upon discharge. She remained hemodynamically stable and was discharged in a stable condition without oxygen supplementation. Patient was advised to follow-up
with her fiberglass roller at [facility] for further monitoring of white count and immunosuppressive treatment.
Discharge Plan
-
Patient Disposition: Home (Routine Discharge)
Discharge Diagnosis/Procedures: Neutropenic fever, resolved you are followed by fiberglass roller. You were given Granix (4 doses). Your white blood cell count was 28.5 upon discharge. We suspect your immunotherapy causing leukopenia. Please follow-up
with your fiberglass roller at [facility].
Right lower lobe pneumonia. You are seen by pulmonary and ID doctor. He was given IV antibiotic. Continue taking oral antibiotics to finish the course.
Potential side effects of doxycycline include GI upset, photosensitivity. Avoid direct sun exposure. Take Zofran as needed for nausea.
Potential side effects of Augmentin include GI upset.
Diet: As tolerated
Referrals:
Agustin Duke MD [Active] - in four to six weeks
Ozzy Tirado DO [Family Provider] - in one to two weeks
Prescriptions:
New
doxycycline hyclate 100 mg Capsule
100 mg PO Q12 Qty: 5 0RF
benzonatate 100 mg Capsule
200 mg PO TIDPRN PRN (Reason: cough) Qty: 25 0RF
ondansetron HCl 4 mg tablet
4 mg PO Q8H PRN (Reason: nausea and vomiting) Qty: 10 0RF
amoxicillin-pot clavulanate 875-125 mg tablet
1 tab PO BID Qty: 5 0RF
Continued
cevimeline [Evoxac] 30 MG capsule
30 mg PO TID
astaxanthin 4 MG capsule
4 mg PO DAILY
Eye Support Vitamin
1 tab PO BID
Vein Support Vitamin
1 tab PO BID
sertraline 100 mg Tablet
100 mg PO DAILY@1999
Rx Instructions:
05/23/2024, take with 25 mg for a total of 125 mg.
therapeutic multivitamin Tablet
1 tab PO DAILY
ascorbic acid (vitamin C) [Vitamin C] 500 mg Tablet
500 mg PO BID
sertraline 25 mg Tablet
25 mg PO DAILY@1999
Rx Instructions:
05/23/2024, take with 100 mg for a total of 125 mg.
folic acid 1 mg Tablet
1 mg PO DAILY
hydroxychloroquine 200 mg Tablet
200 mg PO BID
cyclosporine [Restasis] 0.05 % Dropperette
1 drp BOTH EYES BID
cholecalciferol (vitamin D3) 25 mcg (1,000 unit) Tablet
25 mcg PO BID
Xiidra 5 % Dropperette
1 drp BOTH EYES BID
Immune Support Vitamin
2 tab PO BID
MSM
2 tab PO BID
Rituxan
0 mg IV [id number]
glutathione
2 tab PO BID
zinc liquid
1 dose PO DAILY
Patient Comments:
05/23/2024, pt. takes entire dropper full (sublingually) of zinc daily.
Discharge Orders:
Discharge Patient (As Directed); Ordered 05/29/24
Ordered By: Dipika Jiménez
Discharge Date and Time
Discharge Date/Time: 05/29/24 11:34
Print Language: SWEDISH
--- NOTE | 2024-05-29 10:17 | CM ---
Pt for d/c today
Reports has ride at d/c
Given IMM
Plan - home no needs
[2024-05-29 10:45] VITALS: BP 103/65
[2024-05-29] MEDS: ANESTHETIC LOZENGE 1 LOZENGE PO (11:05)
== END 2024-05-29 11:34 | disposition home or self-care (01) | DRG 808 ==
LOC: 2 NORTH 09:27
PROVIDERS: Physician Assistant; Student in an Organized Health Care Education/Training Program; ADMITTING PHYSICIAN Internal Medicine; CONSULT PHYSICIAN Internal Medicine Infectious Disease; EMERGENCY PHYSICIAN Emergency Medicine; FAMILY PHYSICIAN Family Medicine; OTHER PHYSICIAN Internal Medicine; OTHER PHYSICIAN Internal Medicine Hematology & Oncology
DX: D70.2 Other drug-induced agranulocytosis (principal); J18.9 Pneumonia, unspecified organism; C85.9A Non-Hodgkin lymphoma, unspecified, in remission; E87.1 Hypo-osmolality and hyponatremia; J44.0 Chronic obstructive pulmonary disease with (acute) lower respiratory infection; T45.1X5A Adverse effect of antineoplastic and immunosuppressive drugs, initial encounter; I10 Essential (primary) hypertension; I25.10 Atherosclerotic heart disease of native coronary artery without angina pectoris; G47.00 Insomnia, unspecified; F41.9 Anxiety disorder, unspecified; F32.A Depression, unspecified; M06.9 Rheumatoid arthritis, unspecified; M35.00 Sjogren syndrome, unspecified; I95.89 Other hypotension; R91.1 Solitary pulmonary nodule; K21.9 Gastro-esophageal reflux disease without esophagitis; K59.00 Constipation, unspecified; R09.02 Hypoxemia; M85.80 Other specified disorders of bone density and structure, unspecified site; Z87.891 Personal history of nicotine dependence; Z96.643 Presence of artificial hip joint, bilateral; Z79.899 Other long term (current) drug therapy; Z79.620 Long term (current) use of immunosuppressive biologic; Z20.822 Contact with and (suspected) exposure to COVID-19; Z11.52 Encounter for screening for COVID-19
CPT/HCPCS: 71046; 71250; 80048; 80053; 81003; 81015; 82607; 82728; 82746; 83540; 83550; 83690; 85025; 85045; 87040; 87070; 87086; 87205; 87449; 87502; 87811; 87899; 94640; 96361; 96374; 96375; 99285; J1447

== ENCOUNTER → 2024-07-14 08:24 | Outpatient (REF) | payer MEDICARE, OTHER, SELFPAY | LOC: HWRAD 08:24 | PROVIDERS: ATTENDING PHYSICIAN Internal Medicine; FAMILY PHYSICIAN Family Medicine | DX: R91.1 Solitary pulmonary nodule (principal) | CPT/HCPCS: 71250 ==

== ENCOUNTER → 2024-08-23 16:52 | Outpatient (REF) | payer MEDICARE, OTHER, SELFPAY | LOC: WDC 16:52 | PROVIDERS: ATTENDING PHYSICIAN Obstetrics & Gynecology Gynecology; FAMILY PHYSICIAN Family Medicine | DX: Z12.31 Encounter for screening mammogram for malignant neoplasm of breast (principal) | CPT/HCPCS: 77063; 77067 ==

== ENCOUNTER 2024-09-03 21:42 | Emergency (ER) | payer MEDICARE, OTHER, SELFPAY ==
[2024-09-03 21:47] VITALS: BP 114/72
--- NOTE | 2024-09-03 23:09 | ED.GENMED ---
History of Present Illness
General
Chief Complaint: Musculo-Skeletal Complaint
Source: patient
Exam Limitations: none
Time Seen by Provider: 09/03/24 22:16
Nursing documentation reviewed up to this point in time: agreed with
History of Present Illness
History of Present Illness:
63-year-old female presenting to the emergency department today with concerns of left foot pain swelling started yesterday. She spoke with a friend who is a nurse who recommended go to the ER to rule out a DVT. Denies any chest pain shortness of
breath any recent surgery immobilization history of blood clots estrogen product usage.
Past History
Past History
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
ED Past Surgical History: Other (Skin biopsy)
Patient has exhibited threatening behavior?: No
Social History
Tobacco: Non-smoker
Alcohol: Occasional
Drug: None
Living: with family
Employment: Employed
Family History
Family History: Negative Diabetes, Hypertension, Early CAD, Asthma or Cancer
Review of Systems
Review of Systems
Allergies reviewed?: Yes
All Other Systems: ROS reviewed and negative except as documented in HPI and ROS
Phy Exam
Physical Exam
Physical Exam:
GENERAL: Alert , in no apparent distress
EYE: pupils equal and reactive
NECK: Supple, no significant adenopathy.
ENT: o/p clr, mmm.
CARDIAC: Regular rate and rhythm .
LUNGS: Clear breath sounds bilaterally, no acute respiratory distress, no wheezes/rales/rhonchi
ABDOMEN: Soft, without focal tenderness, no r/g, no cvat
NEUROLOGICAL: Alert and oriented, no focal neuro deficits
SKIN: Slight bruising to the left midfoot. Warm and dry, skin intact.
MUSCULOSKELETAL: No edema, well perfused.
PSYCH: Normal and appropriate interaction.
Course
Vital Signs
Initial and Last Documented VS:
Initial Vital Signs
Temp Pulse Resp BP Pulse Ox
97.6 F 79 16 114/72 95
09/03/24 21:47 09/03/24 21:47 09/03/24 21:47 09/03/24 21:47 09/03/24 21:47
Last Documented Vital Signs
Temp Pulse Resp BP Pulse Ox
97.6 F 79 16 114/72 95
09/03/24 21:47 09/03/24 21:47 09/03/24 21:47 09/03/24 21:47 09/03/24 21:47
MDM/Problems Addressed
MDM/Problems Addressed:
63-year-old female presenting to the emergency department today with concerns of left foot pain and swelling starting today. She initially was concerned of a clot then remembered that she dropped a heavy candle onto her foot yesterday there was
apparent bruising on the left midfoot good pulses no redness or warmth no risk factors for blood clots. Patient walking well very unlikely a fracture very minimal tenderness palpation patient stable for discharge as blood clot is very unlikely to
be explaining symptoms during patient's history and story.
*Pulse Oximetry
SaO2: 95
Oxygen Mode of Delivery: Room air
Patient hypoxic: no (95)
*Critical Care Note
Total Time (30-74mins, 75-104mins- exclusive of procedures): Not Applicable
ED Attending Note
-
Portions of this chart may have been created with voice recognition software.� Occasional wrong word or��sound alike� substitutions may have occurred due to the inherent limitations of voice recognition software.
Discharge Plan
Departure
Patient Disposition: Home (Routine Discharge)
Date of Disposition: 09/03/24
Time of Disposition: 23:14
Patient with high blood pressure during this ER visit?: No
Condition: Good
Covid-19: Not Applicable
Discharge Problem:
Contusion of foot
Instructions: Contusion (DC)
Prescriptions:
No Action
cevimeline [Evoxac] 30 MG capsule
30 mg PO TID
astaxanthin 4 MG capsule
4 mg PO DAILY
Eye Support Vitamin
1 tab PO BID
Vein Support Vitamin
1 tab PO BID
sertraline 100 mg Tablet
100 mg PO DAILY@1999
Rx Instructions:
05/23/2024, take with 25 mg for a total of 125 mg.
therapeutic multivitamin Tablet
1 tab PO DAILY
ascorbic acid (vitamin C) [Vitamin C] 500 mg Tablet
500 mg PO BID
sertraline 25 mg Tablet
25 mg PO DAILY@1999
Rx Instructions:
05/23/2024, take with 100 mg for a total of 125 mg.
folic acid 1 mg Tablet
1 mg PO DAILY
hydroxychloroquine 200 mg Tablet
200 mg PO BID
cyclosporine [Restasis] 0.05 % Dropperette
1 drp BOTH EYES BID
cholecalciferol (vitamin D3) 25 mcg (1,000 unit) Tablet
25 mcg PO BID
Xiidra 5 % Dropperette
1 drp BOTH EYES BID
Immune Support Vitamin
2 tab PO BID
MSM
2 tab PO BID
Rituxan
0 mg IV [id number]
glutathione
2 tab PO BID
zinc liquid
1 dose PO DAILY
Patient Comments:
05/23/2024, pt. takes entire dropper full (sublingually) of zinc daily.
doxycycline hyclate 100 mg Capsule
100 mg PO Q12 Qty: 5 0RF
benzonatate 100 mg Capsule
200 mg PO TIDPRN PRN (Reason: cough) Qty: 25 0RF
ondansetron HCl 4 mg tablet
4 mg PO Q8H PRN (Reason: nausea and vomiting) Qty: 10 0RF
amoxicillin-pot clavulanate 875-125 mg tablet
1 tab PO BID Qty: 5 0RF
Referrals:
Ozzy Tirado DO [Family Provider, Family Practice]
Activity Restrictions/Additional Instructions:
You came to the emergency department today with concerns of foot pain. This is likely from the injury sustained yesterday. Please return for any worsening, new or concerning symptoms.
Interventions
Interventions:
*Risk Screen - Suicide Last Done: 09/03/24 21:47
*General Assessment Last Done: 09/03/24 21:47
*Neglect/Abuse Screening Last Done: 09/03/24 21:47
Discharge Date and Time
Print Language: TURKMEN
== END 2024-09-03 23:29 | disposition home or self-care (01) ==
LOC: EMR 21:42
PROVIDERS: EMERGENCY PHYSICIAN Emergency Medicine; FAMILY PHYSICIAN Family Medicine
DX: S90.32XA Contusion of left foot, initial encounter (principal); W20.8XXA Other cause of strike by thrown, projected or falling object, initial encounter; M06.9 Rheumatoid arthritis, unspecified; K21.9 Gastro-esophageal reflux disease without esophagitis; M35.00 Sjogren syndrome, unspecified; Z85.72 Personal history of non-Hodgkin lymphomas; Z87.891 Personal history of nicotine dependence; Z86.16 Personal history of COVID-19; Z91.040 Latex allergy status; Z88.8 Allergy status to other drugs, medicaments and biological substances
CPT/HCPCS: 99282

== ENCOUNTER 2024-11-28 06:08 | Day surgery (SDC) | payer MEDICARE, OTHER, SELFPAY ==
[2024-11-28] VITALS (8 sets, daily range): BP systolic 107–123; BP diastolic 64–85; BMI 23.3
--- NOTE | 2024-11-28 14:23 | PTCARENOTE ---
Report given to Shital GARCIA.
[2024-11-28 21:01] LABS: Brochalveolar Lavage Color Colorless; Brochalveolar Lavage Volume 10 ml
[2024-11-28 21:02] LABS: BAL Lining Cells 9 %; BAL Other Cells 17.5 %; Brochalveolar Lavage Character Hazy (Clear); Brochalveolar Lavage WBC 38500 cells/ml
== END 2024-11-28 18:08 | disposition home or self-care (01) ==
LOC: SDS 06:08
PROVIDERS: ATTENDING PHYSICIAN Internal Medicine Critical Care Medicine
DX: R05.3 Chronic cough (principal); R91.8 Other nonspecific abnormal finding of lung field; R09.89 Other specified symptoms and signs involving the circulatory and respiratory systems; J18.9 Pneumonia, unspecified organism; J40 Bronchitis, not specified as acute or chronic; J38.7 Other diseases of larynx; F32.A Depression, unspecified
CPT/HCPCS: 31623; 31645; 31624; 71045; 86361; 87070; 87102; 87116; 87205; 88112; 88305; 88312; 89051

== ENCOUNTER 2024-12-14 12:53 | Emergency (ER) | payer MEDICARE, OTHER, SELFPAY ==
[2024-12-14 12:58] VITALS: BP 121/75
--- NOTE | 2024-12-14 14:09 | ED.GENMED ---
History of Present Illness
General
Chief Complaint: Skin Surface Trauma
Source: patient
Exam Limitations: none
Time Seen by Provider: 12/14/24 14:00
History of Present Illness
History of Present Illness:
See MDM
Past History
Past History
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
ED Past Surgical History: Other (Skin biopsy)
Patient has exhibited threatening behavior?: No
Social History
Tobacco: Non-smoker
Alcohol: Occasional
Drug: None
Living: with family
Employment: Employed
Family History
Family History: Negative Diabetes, Hypertension, Early CAD, Asthma or Cancer
Phy Exam
Physical Exam
Physical Exam:
See MDM
Course
Orders/Labs/Results
Orders:
Orders
12/14/24 14:07
Tetanus/Diphth/Acelpertussis [Adacel] 0.5 ml IM .ONCE ONE
12/14/24 14:08
CT Head W/o Iv Contrast Urgent
Comment:
Reason For Exam: fall, left forehead trauma, headache
12/14/24 14:34
Ibuprofen [Motrin] 600 mg PO NOW STA
Vital Signs
Initial and Last Documented VS:
Initial Vital Signs
Temp Pulse Resp BP Pulse Ox
97.9 F 66 18 121/75 97
12/14/24 12:58 12/14/24 12:58 12/14/24 12:58 12/14/24 12:58 12/14/24 12:58
Last Documented Vital Signs
Temp Pulse Resp BP Pulse Ox
97.9 F 66 18 121/75 97
12/14/24 12:58 12/14/24 12:58 12/14/24 12:58 12/14/24 12:58 12/14/24 14:11
MDM/Problems Addressed
Differential Diagnosis Includes:
Note:
CHIEF COMPLAINT(S)
Head and rib pain following a fall.
HISTORY OF PRESENT ILLNESS
The patient is a 64-year-old female with a past medical history of Sjogrens syndrome and non-Hodgkin�s lymphoma, presenting with head and rib pain resulting from a fall. The patient reports tripping and falling, leading to a laceration on the head
and pain in the rib area. The head laceration is already aligned with skin lines, and the decision was made to use tissue adhesive. Regarding the rib pain, the patient describes discomfort upon palpation but declines an X-ray. Patient understands
the risk of not obtaining an x-ray. She expresses awareness of her lung health due to past imaging showing white spots and mold spores.
PAST MEDICAL AND SURGICAL HISTORY
- Sjogrens syndrome
- Non-Hodgkin�s lymphoma
CHRONIC MEDICAL CONDITIONS SIGNIFICANTLY AFFECTING CARE
Chronic conditions affecting care:
- Sjogrens syndrome
- Non-Hodgkin�s lymphoma
PHYSICAL EXAM
General: Alert, no acute distress.
Skin: Warm, dry.
Head: Normocephalic. 3 cm superficial laceration above left eyebrow. No active bleeding
Neck: Appears supple, trachea midline.
Eyes, Ears, Nose, Mouth, and Throat: Moist mucous membranes
Cardiovascular: No signs of cyanosis
Respiratory: Respirations are non-labored. Mild tenderness to left anterior lower ribs without crepitus or bruising. Lungs otherwise clear
Abdomen: Non-distended
Musculoskeletal: No deformities
Neurological: No focal neurological deficit observed.
Psychiatric: Cooperative, appropriate mood and affect.
PLAN
- Apply tissue adhesive to the head laceration.
- Tetanus vaccination discussion, with plan to discuss further with the primary care physician.
- Pain management plan using analgesics as needed.
- No imaging (X-ray or CT) for the ribs based on the patients preference and clinical assessment.
- CT head given age and trauma
DIFFERENTIAL DIAGNOSIS
The Differential Diagnosis includes, in no particular order and is not limited to:
- Rib contusion
- Head laceration
- Traumatic brain injury (unlikely given clinical assessment)
- Pneumothorax (clinically ruled out)
- Fractured ribs (patient declined imaging)
- Soft tissue injury
- Syncope
- Ligamentous injury
- Post-fall syndrome
- Bruising/ecchymosis
SUMMARY OF ENCOUNTER
The patient presented to the emergency department following a fall resulting in a head laceration and rib pain. The laceration was managed with tissue adhesive which is appropriate given its alignment along the natural skin lines. The rib pain was
clinically assessed without imaging at the patient�s request. The patient expressed concerns about immune system compromise due to her medical history.
DISPOSITION
Discharge.
MEDICATION RECONCILIATION
- Pain medication (analgesics) as needed. Specific type not mentioned.
MEDICAL DECISION MAKING
- Complexity of Data Reviewed: Sjogrens syndrome, Non-Hodgkin�s lymphoma.
- Data:
Category 1
- Clinical examination of head and ribs.
- Patients description of past health issues.
Category 2
- Not applicable as no family or EMS input was recorded.
Category 3
- Tetanus status was discussed with patient for follow-up with their doctor.
-Risk:
- Prescription medication was considered but not specifically given.
- Care significantly affected by Social Determinants of Health: Not applicable.
DIAGNOSIS
- S01.81XA: Laceration without foreign body of scalp, initial encounter
- R07.81: Pleurodynia (rib pain)
SUMMARY OF ENCOUNTER
The patient, a 64-year-old female with a history of Sjogrens syndrome and non-Hodgkins lymphoma, visited the emergency department following a fall, resulting in a head laceration and rib pain. The head laceration was addressed using tissue adhesive
due to its alignment with natural skin lines. A CT head scan was conducted, which yielded negative results, ruling out potential traumatic brain injury. The patient was clinically assessed for rib pain and preferred not to undergo any imaging for
it. She expressed concerns about her immune status given her medical history.
DISPOSITION
Discharge.
ASSESSMENT
The clinical assessment concluded no acute life-threatening injuries. The head laceration was managed appropriately, and the rib pain was considered either a contusion or a possible fracture, but no imaging was obtained due to the patients
preference.
PLAN
1. Provide tissue adhesive to the head laceration.
2. Discuss and arrange a follow-up with primary care regarding tetanus vaccination and ongoing care.
3. Recommend [id number] analgesics for pain control as needed.
4. Educate the patient on wound care and provide return precautions regarding the rib injury for signs of worsening.
PATIENT EDUCATION AND COUNSELING
Discussed wound care and explained return precautions for potential bruising or fracture in the ribs. Advised follow-up with primary care for further management as needed.
FOLLOW-UP INSTRUCTIONS
The patient was advised to schedule a follow-up appointment with her primary care physician for ongoing care and a discussion regarding tetanus vaccination status.
MEDICATION RECONCILIATION
No new prescription was given as the patient declined a pain medication prescription.
MEDICAL DECISION MAKING
- Number and Complexity of Problems Addressed: Chronic conditions affecting care include Sjogrens syndrome and non-Hodgkins lymphoma. Differential diagnosis considered includes rib contusion, head laceration, and soft tissue injury. Traumatic brain
injury was ruled out.
- Data:
Category 1: CT head negative, ensuring no traumatic injury.
Category 2: None explicitly mentioned.
Category 3: None explicitly mentioned.
- Risk: Prescription medication for pain was considered but declined by the patient. Consideration of admission/observation was deemed unnecessary as the CT was negative, symptoms are manageable with [id number] options, and the patient was
stable and reliable for outpatient follow-up.
DIAGNOSIS
- S01.81XA: Laceration without foreign body of scalp, initial encounter
- R07.81: Pleurodynia (rib pain)
*Pulse Oximetry
SaO2: 97
Oxygen Mode of Delivery: Room air
Patient hypoxic: no
*Critical Care Note
Total Time (30-74mins, 75-104mins- exclusive of procedures): Not Applicable
ED Attending Note
-
Portions of this chart may have been created with voice recognition software.� Occasional wrong word or��sound alike� substitutions may have occurred due to the inherent limitations of voice recognition software.
Discharge Plan
Departure
Patient Disposition: Home (Routine Discharge)
Date of Disposition: 12/14/24
Time of Disposition: 15:21
Patient with high blood pressure during this ER visit?: No
Discharge Problem:
Head injury, Bruised rib
Instructions: Laceration Repair With Glue (DC)
Prescriptions:
No Action
cevimeline [Evoxac] 30 MG capsule
30 mg PO TID
astaxanthin 4 MG capsule
4 mg PO DAILY
Eye Support Vitamin
1 tab PO BID
Vein Support Vitamin
1 tab PO BID
sertraline 100 mg Tablet
100 mg PO DAILY@1999
Rx Instructions:
05/23/2024, take with 25 mg for a total of 125 mg.
therapeutic multivitamin Tablet
1 tab PO DAILY
ascorbic acid (vitamin C) [Vitamin C] 500 mg Tablet
500 mg PO BID
sertraline 25 mg Tablet
25 mg PO DAILY@1999
Rx Instructions:
05/23/2024, take with 100 mg for a total of 125 mg.
folic acid 1 mg Tablet
1 mg PO DAILY
hydroxychloroquine 200 mg Tablet
200 mg PO DAILY
cyclosporine [Restasis] 0.05 % Dropperette
1 drp BOTH EYES BID
cholecalciferol (vitamin D3) 25 mcg (1,000 unit) Tablet
25 mcg PO BID
Xiidra 5 % Dropperette
1 drp BOTH EYES BID
Immune Support Vitamin
2 tab PO BID
MSM
2 tab PO BID
glutathione
2 tab PO BID
zinc liquid
1 dose PO DAILY
Patient Comments:
05/23/2024, pt. takes entire dropper full (sublingually) of zinc daily.
PepZinGI 16 mg Tablet,Chewable
16 mg PO BID
Referrals:
Ozzy Tirado DO [Family Provider, [facility]]
Activity Restrictions/Additional Instructions:
Your wound was fixed with derma-alatorre. This is a special glue that holds a wound closed similar to stitches. This type of wound closure will eventually fall off by itself and does not need to be removed. You may wash the area very gently, but do not
scrub or pick at the glue. Watch for signs of infection: fever over 100.5', increasing pain, red streaks around wound, swelling, drainage of pus, or bad smell. If any of these happen, return to ED promptly. All wounds may scar, however you may
reduce the appearance of scarring by avoiding sun exposure to the scar and applying skin moisturizer with spf protection to the scar once the wound is healed.
Interventions
Interventions:
*Risk Screen - Suicide Last Done: 12/14/24 12:58
*General Assessment Last Done: 12/14/24 12:58
ED-Skin Assessment Last Done: 12/14/24 13:15
Discharge Date and Time
Print Language: INDONESIAN
[2024-12-14] MEDS: MOTRIN 600 MG PO (14:44)
[2024-12-14] MEDS: ADACEL 0.5 ML IM (14:45)
== END 2024-12-14 15:35 | disposition home or self-care (01) ==
LOC: EMR 12:53
PROVIDERS: EMERGENCY PHYSICIAN Student in an Organized Health Care Education/Training Program; FAMILY PHYSICIAN Family Medicine
DX: S09.90XA Unspecified injury of head, initial encounter (principal); S20.212A Contusion of left front wall of thorax, initial encounter; S01.81XA Laceration without foreign body of other part of head, initial encounter; M06.9 Rheumatoid arthritis, unspecified; M35.00 Sjogren syndrome, unspecified; K21.9 Gastro-esophageal reflux disease without esophagitis; Z23 Encounter for immunization; Z85.72 Personal history of non-Hodgkin lymphomas; W01.0XXA Fall on same level from slipping, tripping and stumbling without subsequent striking against object, initial encounter
CPT/HCPCS: 99284; 12013; 90471; 70450; 90715

== ENCOUNTER → 2024-12-19 13:05 | Outpatient (REF) | payer MEDICARE, OTHER, SELFPAY | LOC: RAD 13:05 | PROVIDERS: ATTENDING PHYSICIAN Nurse Practitioner Family | DX: R07.89 Other chest pain (principal) | CPT/HCPCS: 71101 ==

== ENCOUNTER → 2024-12-21 08:37 | Outpatient (REF) | payer MEDICARE, OTHER, SELFPAY | LOC: HWRAD 08:37 | PROVIDERS: ATTENDING PHYSICIAN Internal Medicine; FAMILY PHYSICIAN Family Medicine; REFERRING PHYSICIAN Student in an Organized Health Care Education/Training Program | DX: J16.8 Pneumonia due to other specified infectious organisms (principal); B49 Unspecified mycosis | CPT/HCPCS: 71250 ==